=== PATIENT | female | born 1940 | race Caucasian/White ===

== ENCOUNTER 2017-03-23 12:41 | Inpatient (IN) | payer MEDICAID, MEDICARE ==
[~2017-03-23] VITALS: Ht 162.6 cm; Wt 71.7 kg
[~2017-03-23 12:41] MED LIST: ACID1TAB12 GT; ATEN25TA PO; CALC1TAB30 PO; CLOP75TA15 GT; CYAN10009 GT; DULO30CA51 PO; EXEN5PEN2 SQ; GABA-536 PO; GLIP5TAB13 PO; KETO15CR2 TP; LEVO50TA8 PO; LORA-676 GT; METO-295 PO; MULT1TAB11 PO; OXYC-128 GT; PANT40TA2 PO; POLY17PO4 PO; PRIM50TA GT; RANI150T12 PO; ROSU20TA PO; VANC125C2 PO
[2017-03-23] MEDS ORDERED: AMIO200T2 GT (14:28)
[2017-03-23] MEDS ORDERED: LEVO75TA7 GT (14:28)
[2017-03-23] MEDS ORDERED: INSU100V7 SQ (14:28)
[2017-03-23] MEDS ORDERED: humalog SQ (14:28)
[2017-03-23] MEDS ORDERED: GABA300S GT (14:28)
[2017-03-23] MEDS ORDERED: ZINC500P16 MC (14:28)
[2017-03-23] MEDS ORDERED: MESA10002 RC (14:28)
[2017-03-23] MEDS ORDERED: ASCO-375 GT (14:28)
[2017-03-23] MEDS ORDERED: METO25TA6 GT (14:28)
[2017-03-23] MEDS ORDERED: FAMO20TA8 GT (14:28)
[2017-03-23] MEDS ORDERED: LORA-258 GT (14:28)
[2017-03-23] MEDS ORDERED: BISA-79 RC (14:28)
[2017-03-23] MEDS ORDERED: [UNRECOGNIZED DRUG - CODE] PO (14:28)
[2017-03-23] MEDS ORDERED: ALBU2.5V38 NEB (14:28)
[2017-03-23 14:44] LABS: BASOPHILS # (AUTO) 0.1 K/uL (0.0-8.0); BASOPHILS % (AUTO) 0.5 % (0.0-2.0); EOSINOPHILS # (AUTO) 0.3 K/uL (0.0-0.7); EOSINOPHILS % (AUTO) 2.3 % (0.0-7.0); HEMATOCRIT 32.1 % (37-47); HEMOGLOBIN 10.2 G/DL (12.0-16.0); LYMPHOCYTES # (AUTO) 1.6 K/UL (0.8-4.8); LYMPHOCYTES % (AUTO) 13.5 % (20.5-51.5); MEAN CORPUSCULAR HEMOGLOBIN 27.5 UUG (27.0-31.0); MEAN CORPUSCULAR HGB CONC 32 g/dL (32.0-37.0); MEAN CORPUSCULAR VOLUME 86.8 FL (81.0-99.0); MONOCYTES # (AUTO) 0.9 K/UL (0.1-1.30); MONOCYTES % (AUTO) 7.6 % (0.0-11.0); NEUTROPHILS # (AUTO) 8.8 K/UL (1.8-8.9); NEUTROPHILS % (AUTO) 76.1 % (38.5-71.5); PLATELET COUNT (AUTO) 647 K/UL (150-450); WHITE BLOOD COUNT (AUTO) 11.7 K/UL (4.0-11.2)
[2017-03-23 14:53] LABS: ALANINE AMINOTRANSFERASE 18 U/L (14-59); ALKALINE PHOSPHATASE 78 U/L (50-136); ASPARTATE AMINOTRANSFERASE 7 U/L (15-37); BILIRUBIN,TOTAL 0.2 mg/dL (0.2-1.0); CARBON DIOXIDE 31 mmol/L (21-32); CHLORIDE 108 mmol/L (98-107); GLUCOSE 107 mg/dL (74-106); POTASSIUM 3.6 mmol/L (3.5-5.1); TOTAL PROTEIN, SERUM 7.6 g/dL (6.4-8.2); UREA NITROGEN, BLOOD 45 mg/dL (7-18)
--- NOTE | 2017-03-23 15:00 | NUR ---
Pt arrived with f/c to G-tube site, f/c removed by Dr. Swanson and replaced with 22F G-tube. Redness and drainage noted at site.
--- NOTE | 2017-03-23 15:15 | NUR ---
X-ray done post 15ml of Gastrografin given through G-tube as instructed by x-ray tech. G-tube flushed with 30ml H2O post x-ray.
[2017-03-23] MEDS ORDERED: DIATR MEGLU/DIATRIZOATE SODIUM 120 ML BOTTLE ONE (15:19)
[2017-03-23] MEDS ORDERED: DIATR MEGLU/DIATRIZOATE SODIUM 30 ML SOLUTION ONE (15:20)
--- NOTE | 2017-03-23 15:30 | NUR ---
Per Dr. Swanson pt to be admitted to m/s.
[2017-03-23 16:09] LABS: BAND % (MANUAL) 2 % (0-10); EOSINOPHILS % (MANUAL) 2 % (0-8); LYMPHOCYTES % (MANUAL) 15 % (20-40); MONOCYTES % (MANUAL) 6 % (2-10); MYELOCYTES % 1 % (0-0); NEUTROPHILS % (MANUAL) 74 % (42-75)
--- NOTE | 2017-03-23 17:00 | NUR ---
Pt resting in [facility] with NAD noted at this time, pend m/s bed assignment.
--- NOTE | 2017-03-23 20:58 | NUR ---
Pt. admitted to [facility], under care of Sol Guillaume Belongs List completed
[2017-03-23 21:00] VITALS: BP 150/79
--- NOTE | 2017-03-23 21:10 | NUR ---
RECEIVED PATIENT FROM ER VIA GURNEY. PT IS ADMITTED TO MED SURG UNDER THE CARE OF DR. STYLES. DX: FECAL IMPACTION. PT IS ALERT, RESPONSIVE. BELONGING LIST DONE, ADMISSION PROCESS AND CARE PLAN INITIATED. WILL CALL FOR MD'S ORDER. SAFETY MEASURES IN PLACE.
--- NOTE | 2017-03-23 21:30 | NUR ---
PT CAME IN WITH G TUBE, FONTAINE CATH AND WOUND VAC TUBING FROM THE COCCYX AREA TO THE RIGHT HIP. REMOVED OLD DRESSING FROM COCCYX AREA FOR ASSESSMENT. WILL ORDER WOUND CONSULT FOR EVAL.
[2017-03-23] MEDS ORDERED: IV NS 1000 ML 1,000 ML IV PRN (23:00)
--- NOTE | 2017-03-23 23:00 | NUR ---
SPOKED WITH DR. CARIAS. 'S ORDER RECEIVED, READ BACK DONE, AND CARRIED OUT. PER DR. CARIAS, MED RECONCILIATION WILL BE DONE IN THE MORNING.
[2017-03-23] MEDS ORDERED: IV D5/ 0.9% NACL 1,000 ML IV PRN (23:45)
[2017-03-24 05:49] VITALS: BP 152/81
[2017-03-24] MEDS ORDERED: DEXTROSE 50% 50 ML DISP.SYRIN IV SCH (06:00)
[2017-03-24] MEDS ORDERED: INSULIN REGULAR, HUMAN 300 UNIT/3 ML VIAL SQ SCH (06:00)
[2017-03-24] MEDS ORDERED: BLOOD SUGAR DIAGNOSTIC 1 EACH STRIP VI SCH (06:00)
--- NOTE | 2017-03-24 06:00 | NUR ---
PT SLEPT INTERMITTENTLY, IN NO ACUTE DISTRESS. ACCUCHECKS ORDERED. PT KEPT NPO. G TUBE INTACT, FLUSHED PER PROTOCOL, DRESSING CHANGED. ORAL CARE PROVIDED, SUCTIONED NEEDED. REPOSITIONED FOR COMFORT. APPLIED MEPELIX ON COCCYX AREA. PATIENT KEPT CLEAN DRY. SAFETY MEASURES IN PLACE. WILL CONTINUE TO MONITOR.
[2017-03-24 07:04] LABS: BASOPHILS % (AUTO) 0.1 % (0.0-2.0); EOSINOPHILS # (AUTO) 0.2 K/uL (0.0-0.7); EOSINOPHILS % (AUTO) 2.6 % (0.0-7.0); HEMATOCRIT 34.2 % (37-47); HEMOGLOBIN 10.6 G/DL (12.0-16.0); LYMPHOCYTES # (AUTO) 1.5 K/UL (0.8-4.8); LYMPHOCYTES % (AUTO) 17.4 % (20.5-51.5); MEAN CORPUSCULAR HEMOGLOBIN 27.2 UUG (27.0-31.0); MEAN CORPUSCULAR HGB CONC 31 g/dL (32.0-37.0); MEAN CORPUSCULAR VOLUME 87.4 FL (81.0-99.0); MONOCYTES # (AUTO) 0.7 K/UL (0.1-1.30); MONOCYTES % (AUTO) 8.3 % (0.0-11.0); NEUTROPHILS % (AUTO) 71.6 % (38.5-71.5); RED BLOOD CELL COUNT(AUTO) 3.92 MIL/UL (4.2-5.4)
[2017-03-24 07:05] LABS: WHITE BLOOD COUNT (AUTO) 8.4 K/UL (4.0-11.2)
[2017-03-24 07:12] LABS: ALANINE AMINOTRANSFERASE 14 U/L (14-59); ALKALINE PHOSPHATASE 73 U/L (50-136); ASPARTATE AMINOTRANSFERASE 10 U/L (15-37); BILIRUBIN,TOTAL 0.3 mg/dL (0.2-1.0); CARBON DIOXIDE 29 mmol/L (21-32); CHLORIDE 109 mmol/L (98-107); CREATININE 1.1 mg/dL (0.6-1.3); GLUCOSE 206 mg/dL (74-106); PHOSPHOROUS 3.4 mg/dL (2.5-4.9); POTASSIUM 3.4 mmol/L (3.5-5.1); TOTAL PROTEIN, SERUM 7.6 g/dL (6.4-8.2); UREA NITROGEN, BLOOD 38 mg/dL (7-18)
--- NOTE | 2017-03-24 08:00 | NUR ---
RECEIVED BED SIDE REPORT, PATIENT NOTED SITTING UP IN BED, NO COMPLAINTS OF PAIN AT THIS TIME, NO SIGNS OF DISTRESS
[2017-03-24] MEDS: ACETAMINOPHEN 650 MG/20.3 ML LIQUID UDC GT PRN (08:39)
[2017-03-24] MEDS: DEXTROSE 50% 50 ML DISP.SYRIN IV PRN (08:44)
[2017-03-24] MEDS: ONDANSETRON 4 MG/2 ML VIAL IV PRN (08:47)
[2017-03-24] MEDS: Z GUARD REMEDY PASTE 57 GM TUBE TOP SCH ×2 (09:04→23:08)
--- NOTE | 2017-03-24 11:00 | NUR ---
WOUND CARE CONSULT DONE AT THIS TIME, PICTURE OF WOUND ON ANKLE DOCUMENTED AND PICTURES TAKEN AND PLACED IN CHART, NPO STATUS MAINTAINED, NO BM NOTED (NEW ORDERS FROM COLLECTION: WILL COLLECT STOOL WHEN PRESENT), WOUND CARE NURSE REQUESTED A SURGICAL CONSULT FOR SACRUM ULCER, DOCTOR JENSEN PAGED AT WITHOUT RETURNED CALL
[2017-03-24 11:01] VITALS: BP 177/91
--- NOTE | 2017-03-24 11:13 | NUR ---
WOUND CARE CONSULT: PT PRESENTS WITH SACRAL ULCER, STAGE 4, LEFT HEEL OPEN BLISTER AND ESCHAR TO LEFT SIDE OF HEAD, ALL PRESENT ON ADMISSION. RECOMMENDATIONS MADE FOR WOUND CARE AND SKIN PROTECTION. DISCUSSED WITH NURSING STAFF. RECOMMEND SURGICAL CONSULT. PT ON FIRST STEP MATTRESS. WILL SEE PRN. SANCHEZ IN AGREEMENT WITH PLAN OF CARE. Addendum: 03/24/17 at 1114 by DANIEL PIERSON RN Amended: Links added. Addendum: 03/24/17 at 1116 by DANIEL PIERSON RN SACRAL WOUND HAS UNDERMINING OF 3CM AT 12:00 POSITION. DISCUSSED WITH NURSING STAFF.
[2017-03-24] MEDS: CLOTRIMAZOLE 1% CREAM 30 GM TUBE TOP SCH ×2 (11:15→17:00)
[2017-03-24] MEDS: SODIUM HYPOCHLORITE 0.125% 473 ML BOTTLE TP SCH (11:15)
[2017-03-24] MEDS ORDERED: CLINDAMYCIN PHOSPHATE IV 600 MG in IV DEXTROSE 5% 100 ML IV SCH (14:00)
[2017-03-24 14:40] LABS: PLATELET COUNT (AUTO) 636 K/UL (150-450)
[2017-03-24] MEDS: BLOOD SUGAR DIAGNOSTIC 1 EACH STRIP VI SCH ×2 (14:46→23:10)
[2017-03-24 15:01] VITALS: BP 168/70
[2017-03-24] MEDS: INSULIN REGULAR, HUMAN 300 UNIT/3 ML VIAL SQ PRN ×2 (15:13→23:12)
--- NOTE | 2017-03-24 15:30 | NUR ---
PATIENT HAS A BLOOD PRESSURE OF 168/77, DOCTOR JENSEN PAGED, AWAITING RESPONDING CALL AT THIS TIME
--- NOTE | 2017-03-24 17:20 | NUR ---
STOOL COLLECTED AND SENT TO LAB AT THIS TIME
--- NOTE | 2017-03-24 19:35 | NUR ---
PT RECEIVED IN BED, AWAKE. A/OX2. ABLE TO MAKE TO NEEDS KNOWN. V/S STABLE. IN NO ACUTE DISTRESS. NO C/O PAIN AT THIS TIME. PT IVF INFUSING. IV INTACT AND PATENT. ON FIRST STEP MATTRESS. SACRAL REGION C/D/I. FONTAINE INTACT/PATENT. SAFETY MEASURES IMPLEMENTED. BED ALARM SET. CALL LIGHT WITHIN REACH.
[2017-03-24 20:00] VITALS: BP 162/69
--- NOTE | 2017-03-24 20:15 | NUR ---
CLINICAL PHARMACY NOTE:VANCOMYCIN DOSING Request for vancomycin dosing on 76 y/o female 5'4" 153lbs for cellulitis temp 99f BUN 38 Scr 1.1 WBC 8.4 start vancomycin 1000mg ivpb q24h hours estimated trough 15. will order trough prior to 4 th dose. Will continue to monitor
--- NOTE | 2017-03-24 22:45 | NUR ---
DR. RUIZ IN WITH PT. ASSESSING G-TUBE. REQUEST CHANGE OF G-TUBE DRESSING AND PLACEMENT OF STOMA ADHESIVE.
[2017-03-24] MEDS ORDERED: FLEET ENEMA 133 ML BOTTLE RC ONE ×2 (23:00→23:49)
[2017-03-24] MEDS: POTASSIUM CHLORIDE 50 ML IV SCH (23:04)
--- NOTE | 2017-03-24 23:40 | NUR ---
FLEET ENEMA ADMINISTERED. PT TOLERATED WELL. PT HAS SOFT BROWN STOOL. WILL CONT TO MONITOR.
--- NOTE | 2017-03-24 23:45 | NUR ---
PT G-TUBE DRESSING CHANGED AND SECURED. NO RESIDUAL AT THIS TIME. ALSO, PT HAD BM THAT WAS SOFT TO WATERY IN CONSISTENCY. PT PLACED ON PRECAUTIONARY ISOLATION AT THIS TIME. PT SACRAL ULCER CLEANED WITH SALINE. MEPELEX CHANGED. PT CLEAN AND DRY. PT TURNED FOR SACRAL OFFLOADING.
[2017-03-25] MEDS: VANCOMYCIN IV 1 G in PREMIXED 0 EACH IV SCH ×2 (00:53→21:23)
[2017-03-25] MEDS: ACETAMINOPHEN 650 MG/20.3 ML LIQUID UDC GT PRN (01:23)
--- NOTE | 2017-03-25 01:35 | NUR ---
PT SHOWS SYMPTOMS OF PAIN. SEEN FACIAL GRIMACING WITH NURSING CARE AND G-TUBE CARE. ADMINISTERED TYLENOL ORDERED. WILL CONT TO MONITOR.
--- NOTE | 2017-03-25 02:30 | NUR ---
INFORMED BY CHARGE NURSE HURD THAT VANCO ORAL SUSPENSION UNAVAILABLE AT THIS TIME. WILL ENDORSE TO TERRENCE NURSE. Addendum: 03/25/17 at 0458 by FATUMA HESS RN PT VANCO TOM LATE. VANCO ORAL SUSPENSION FOR PT WAS IN FRIDGE.
[2017-03-25] MEDS: POTASSIUM CHLORIDE 50 ML IV SCH (03:15)
[2017-03-25] MEDS ORDERED: POTASSIUM CHLORIDE 50 ML ONE (03:19)
[2017-03-25 04:00] VITALS: BP 129/77
[2017-03-25] MEDS: VANCOMYCIN FOR PO/GT/NG USE GT SCH ×5 (04:56→23:32)
[2017-03-25] MEDS: BLOOD SUGAR DIAGNOSTIC 1 EACH STRIP VI SCH ×3 (05:14→21:30)
[2017-03-25] MEDS: INSULIN REGULAR, HUMAN 300 UNIT/3 ML VIAL SQ PRN ×4 (05:16→21:33)
--- NOTE | 2017-03-25 06:20 | NUR ---
END OF SHIFT NOTES. PT SLEPT WELL THROUGHOUT SHIFT. IN STABLE CONDITION. IVF INFUSING. FONTAINE DRAINING PROPERLY. PAIN MANAGED. PT KEPT CLEAN AND DRY. G-TUBE PATENT, NO RESIDUAL AT THIS TIME. G-TUBE DRESSING CHANGED, C/D/I. HOB ELEVATED. PT ON FIRST STEP MATTRESS. SACRAL AREA OFFLOADING AND BILATERAL LOWER EXTREMITIES. ALL NEEDS ATTENDED. SAFETY MAINTAINED. CALL LIGHT WITHIN REACH.
[2017-03-25 07:40] LABS: HEMATOCRIT 32.7 % (37-47); HEMOGLOBIN 10.2 G/DL (12.0-16.0); MEAN CORPUSCULAR HEMOGLOBIN 27.4 UUG (27.0-31.0); MEAN CORPUSCULAR HGB CONC 31 g/dL (32.0-37.0); MEAN CORPUSCULAR VOLUME 87.7 FL (81.0-99.0); PLATELET COUNT (AUTO) 683 K/UL (150-450); RED BLOOD CELL COUNT(AUTO) 3.73 MIL/UL (4.2-5.4)
--- NOTE | 2017-03-25 08:00 | NUR ---
RECEIVED REPORT FROM TELEVISION NEWS REPORTER NURSE. PATIENT IN BED AWAKE, NO EVIDENCE OF DISTRESS NOTED. BED IN LOW POSITION, SIDE RAILS UP X2.
[2017-03-25 08:13] LABS: ALANINE AMINOTRANSFERASE 14 U/L (14-59); ALKALINE PHOSPHATASE 71 U/L (50-136); ASPARTATE AMINOTRANSFERASE 13 U/L (15-37); BILIRUBIN,TOTAL 0.2 mg/dL (0.2-1.0); CARBON DIOXIDE 24 mmol/L (21-32); CHLORIDE 113 mmol/L (98-107); CREATININE 1.1 mg/dL (0.6-1.3); GLUCOSE 236 mg/dL (74-106); MAGNESIUM 2.8 mg/dL (1.8-2.4); POTASSIUM 3.8 mmol/L (3.5-5.1); TOTAL PROTEIN, SERUM 7.5 g/dL (6.4-8.2); UREA NITROGEN, BLOOD 25 mg/dL (7-18)
[2017-03-25] MEDS ORDERED: ALBUTEROL SULFATE 2.5 MG/3 ML NEBU NEB PRN (08:45)
[2017-03-25] MEDS ORDERED: HOME MED MISCELLANEOUS XX SCH (08:45)
[2017-03-25] MEDS ORDERED: MIRALAX 17 GM POWD.PACK PO PRN (08:45)
[2017-03-25] MEDS ORDERED: LORAZEPAM 0.5 MG TABLET GT PRN (08:45)
[2017-03-25 09:00] LABS: IRON, SERUM 22 ug/dL (50-175)
[2017-03-25] MEDS ORDERED: AMIODARONE HCL 200 MG TABLET GT SCH (09:00)
[2017-03-25] MEDS ORDERED: CYANOCOBALAMIN 1,000 MCG TABLET GT SCH (09:00)
[2017-03-25] MEDS ORDERED: HOME MED MISCELLANEOUS GT SCH (09:00)
[2017-03-25] MEDS ORDERED: DULOXETINE 30 MG CAPSULE.DR PO SCH (09:00)
--- NOTE | 2017-03-25 09:15 | NUR ---
Gave report to arriving Registry nurse. Patient is stable, no evidence of distress noted.
[2017-03-25 09:18] LABS: FERRITIN 45 ng/mL (8-252)
[2017-03-25] MEDS ORDERED: DUL RC ×2 (09:45→09:57)
[2017-03-25] MEDS ORDERED: GABA-534 GT (09:46)
[2017-03-25] MEDS ORDERED: POLY17PO3 PO (09:57)
[2017-03-25 10:19] LABS: BAND % (MANUAL) 1 % (0-10); EOSINOPHILS % (MANUAL) 1 % (0-8); LYMPHOCYTES % (MANUAL) 11 % (20-40); MONOCYTES % (MANUAL) 10 % (2-10); NEUTROPHILS % (MANUAL) 77 % (42-75)
[2017-03-25] MEDS ORDERED: OXYC-128 PO (10:25)
[2017-03-25] MEDS ORDERED: AMIN30LI2 PO (10:27)
[2017-03-25] MEDS ORDERED: BISACODYL 10 MG SUPP.RECT RC PRN (10:30)
[2017-03-25] MEDS ORDERED: OXYCODONE/APAP 5-325 MG TABLET PO PRN (10:30)
[2017-03-25] MEDS: CLOPIDOGREL 75 MG TABLET GT SCH (10:58)
[2017-03-25] MEDS: FAMOTIDINE 20 MG TABLET GT SCH ×2 (10:59→17:30)
[2017-03-25] MEDS: LORATADINE 10 MG TABLET PO SCH (10:59)
[2017-03-25] MEDS: ZINC SULFATE 220 MG CAPSULE GT SCH (10:59)
[2017-03-25] MEDS: ASCORBIC ACID 500 MG TABLET GT SCH ×2 (11:00→17:31)
[2017-03-25] MEDS: CYANOCOBALAMIN 1000 MCG/ML VIAL IM SCH (11:00)
[2017-03-25] MEDS: LEVOTHYROXINE SODIUM 75 MCG TABLET GT SCH (11:09)
[2017-03-25] MEDS: OXYCODONE/APAP 5-325 MG TABLET GT SCH ×2 (11:10→17:31)
[2017-03-25] MEDS: SODIUM HYPOCHLORITE 0.125% 473 ML BOTTLE TP SCH (11:26)
[2017-03-25] MEDS: Z GUARD REMEDY PASTE 57 GM TUBE TOP SCH ×2 (11:26→21:34)
[2017-03-25 11:27] VITALS: BP 169/80
[2017-03-25] MEDS: CLOTRIMAZOLE 1% CREAM 30 GM TUBE TOP SCH ×2 (11:28→17:39)
[2017-03-25] MEDS: METOPROLOL TARTRATE 25 MG TABLET GT SCH ×3 (12:12→23:32)
[2017-03-25] MEDS: MULTIVITS W-FE,OTHER MIN 15 ML UDC GT SCH (12:18)
--- NOTE | 2017-03-25 14:37 | NUR ---
PHARMACY NOTES (VANCOMYCIN DOSING) S: 76 YO FEMALE ON VANCOMYCIN FOR TREATMENT OF G-TUBE SITE CELLULITIS O: BUN/SCR 25/1.1; WBC 9.0, TEMP 98.4, WOUND CX AND GRAM STAIN PENDING A/P: RENAL FXN STABLE WILL CONTINUE WITH VANCOMYCIN 1 GM Q24H (TODAY: DOSE #2), WILL CK VANCO LEVEL PRIOR TO 4TH DOSE( NOT IN THE COMPUTER YET) WILL CONTINUE MONITORING AND ADJUST DOSE NECESSARY.
[2017-03-25] MEDS: GABAPENTIN 300 MG CAPSULE GT SCH ×2 (15:21→17:30)
[2017-03-25] MEDS: ACIDOPHILUS/BULGARICUS CHEW TAB GT SCH ×2 (15:21→21:22)
[2017-03-25 15:31] VITALS: BP 141/70
[2017-03-25] MEDS: MIRALAX 17 GM POWD.PACK PO SCH (17:00)
[2017-03-25] MEDS: PROTEIN SUPPLEMENT (PROSTAT) 30 ML LIQUID PO SCH (17:00)
[2017-03-25] MEDS: ONDANSETRON 4 MG/2 ML VIAL IV PRN (17:36)
[2017-03-25] MEDS ORDERED: HOME MED MISCELLANEOUS RC SCH (18:00)
[2017-03-25] MEDS ORDERED: DIABETICSOURCE AC 1000ML LIQUID GT PRN (19:00)
--- NOTE | 2017-03-25 19:35 | NUR ---
PT RECEIVED IN BED, AWAKE. A/OX2. ABLE TO MAKE NEEDS KNOWN. V/S STABLE. IN NO ACUTE DISTRESS. NO C/O PAIN AT THIS TIME. IV HEP LOCKED, INTACT AND PATENT. GTUBE FEEDING RUNNING AT 50 CC/HR. PT TOLERATING WELL. G-TUBE SITE C/D/I. FONTAINE DRAINING PROPERLY. CONT TO BE ON FIRST STEP MATTRESS, OFFLOADING COCCYX AND BILATERAL LOWER EXTREMITY. ISOLATION IN PLACE FOR PRECAUTIONARY MEASURES. SAFETY MEASURES IMPLEMENTED. BED ALARM SET. CALL LIGHT WITHIN REACH.
[2017-03-25 20:09] VITALS: BP 127/64
--- NOTE | 2017-03-25 20:45 | NUR ---
SPOKE TO DPEDNA ORTEGA, STATES SHE WAS NOT NOTIFIED OF PT'S ADMISSION AND STATUS. GAVE DPOA UPDATE.
[2017-03-25] MEDS: MESALAMINE 500 MG CAPSULE.SA PO SCH (21:22)
[2017-03-25] MEDS: PRIMIDONE 50 MG TABLET GT SCH (21:23)
[2017-03-25] MEDS: INSULIN DETEMIR 300 UNIT/3 ML CARTRIDGE SQ SCH (21:33)
--- NOTE | 2017-03-25 21:40 | NUR ---
PT FEEDING HELD. 10CC RESIDUAL NOTED. FLUSHED GTUBE WITH 30CC OF WATER. ADMINISTERED NIGHT MEDS. FLUSHED WITH ADDITIONAL 60CC OF WATER, PT HOB ELEVATED. TOLERATED WELL. FEEDING RESTARTED. WILL CONT TO MONITOR.
[2017-03-25 23:30] VITALS: BP 142/67
[2017-03-26] VITALS (24 sets, daily range): BP systolic 71–175; BP diastolic 38–100
[2017-03-26] MEDS: ACIDOPHILUS/BULGARICUS CHEW TAB GT SCH ×3 (06:02→22:53)
[2017-03-26] MEDS: LEVOTHYROXINE SODIUM 75 MCG TABLET GT SCH (06:03)
[2017-03-26] MEDS: VANCOMYCIN FOR PO/GT/NG USE GT SCH ×3 (06:03→18:23)
[2017-03-26] MEDS: METOPROLOL TARTRATE 25 MG TABLET GT SCH ×3 (06:04→17:22)
[2017-03-26] MEDS: BLOOD SUGAR DIAGNOSTIC 1 EACH STRIP VI SCH ×3 (06:55→22:51)
--- NOTE | 2017-03-26 06:58 | NUR ---
END OF SHIFT NOTES. PT SLEPT WELL THROUGHOUT SHIFT. IN STABLE CONDITION. TURNED Q2. G-TUBE FEEDING RUNNING AT 50CC/HR. TOLERATING WELL. GTUBE DRESSING C/D/I. FONTAINE RUNNING PROPERLY. MEPELEX PLACED IN COCCYX REGION. C/D/I. IV INTACT PATENT. SAFETY MEASURES IMPLEMENTED. CALL LIGHT WITHIN REACH.
--- NOTE | 2017-03-26 06:58 | NUR ---
PT BS 66. ADMIN OJ THRU G TUBE. WILL CON TO MONITOR.
--- NOTE | 2017-03-26 07:40 | NUR ---
RECEIVED REPORT FROM HAY FARMER NURSE. PATIENT IN BED AWAKE, NO EVIDENCE OF DISTRESS NOTED. BED IN LOW POSITION, SIDE RAILS UP X2.
[2017-03-26 07:53] LABS: HEMATOCRIT 32.6 % (37-47); HEMOGLOBIN 10.3 G/DL (12.0-16.0); MEAN CORPUSCULAR HEMOGLOBIN 27.7 UUG (27.0-31.0); MEAN CORPUSCULAR HGB CONC 32 g/dL (32.0-37.0); MEAN CORPUSCULAR VOLUME 87.4 FL (81.0-99.0); PLATELET COUNT (AUTO) 715 K/UL (150-450); RED BLOOD CELL COUNT(AUTO) 3.73 MIL/UL (4.2-5.4); WHITE BLOOD COUNT (AUTO) 11.8 K/UL (4.0-11.2)
[2017-03-26] MEDS: AMIODARONE HCL 200 MG TABLET GT SCH (08:07)
[2017-03-26] MEDS: ZINC SULFATE 220 MG CAPSULE GT SCH (08:07)
[2017-03-26] MEDS: CLOPIDOGREL 75 MG TABLET GT SCH (08:07)
[2017-03-26] MEDS: GABAPENTIN 300 MG CAPSULE GT SCH ×3 (08:07→17:21)
[2017-03-26] MEDS: OXYCODONE/APAP 5-325 MG TABLET GT SCH ×2 (08:07→17:00)
[2017-03-26] MEDS: FAMOTIDINE 20 MG TABLET GT SCH ×2 (08:07→16:24)
[2017-03-26] MEDS: ASCORBIC ACID 500 MG TABLET GT SCH ×2 (08:07→17:21)
[2017-03-26] MEDS: LORATADINE 10 MG TABLET PO SCH (08:08)
[2017-03-26] MEDS: CYANOCOBALAMIN 1000 MCG/ML VIAL IM SCH (08:08)
[2017-03-26] MEDS: MULTIVITS W-FE,OTHER MIN 15 ML UDC GT SCH (08:09)
[2017-03-26] MEDS: SODIUM HYPOCHLORITE 0.125% 473 ML BOTTLE TP SCH (08:09)
[2017-03-26] MEDS: CLOTRIMAZOLE 1% CREAM 30 GM TUBE TOP SCH ×2 (08:09→17:23)
[2017-03-26] MEDS: Z GUARD REMEDY PASTE 57 GM TUBE TOP SCH ×2 (08:09→22:26)
[2017-03-26] MEDS: PROTEIN SUPPLEMENT (PROSTAT) 30 ML LIQUID PO SCH ×2 (08:10→17:23)
[2017-03-26] MEDS: MIRALAX 17 GM POWD.PACK PO SCH ×2 (08:10→16:58)
[2017-03-26 09:22] LABS: ALANINE AMINOTRANSFERASE 14 U/L (14-59); ALKALINE PHOSPHATASE 73 U/L (50-136); ASPARTATE AMINOTRANSFERASE 11 U/L (15-37); BILIRUBIN,TOTAL 0.2 mg/dL (0.2-1.0); CARBON DIOXIDE 27 mmol/L (21-32); CHLORIDE 115 mmol/L (98-107); CREATININE 1.1 mg/dL (0.6-1.3); GLUCOSE 58 mg/dL (74-106); MAGNESIUM 2.7 mg/dL (1.8-2.4); PHOSPHOROUS 2.6 mg/dL (2.5-4.9); TOTAL PROTEIN, SERUM 7.1 g/dL (6.4-8.2); UREA NITROGEN, BLOOD 33 mg/dL (7-18)
[2017-03-26] MEDS: POTASSIUM CHLORIDE 20 MEQ POWDER PACKET GT SCH ×3 (11:27→17:22)
--- NOTE | 2017-03-26 12:29 | NUR ---
Clinical pharmacy note: Vancomycin pharmacy to dose Subjective: To continue vancomycin in this 76 yo female for GT site cellulitis Objective: height 64'' weight 153 lb BUN 33 Scr 1.1 Wbc 11.8 temp 98.2 Assessment/Plan Will continue same dose of vancomycin 1000mg IVPB q24hr for today. Second dose is due today at 2200. Plan to draw vanco trough level before 4th banuelos (level not yet ordered). Will monitor renal function & adjust the dose if needed. Will continue to monitor.
[2017-03-26 13:55] LABS: BAND % (MANUAL) 5 % (0-10); EOSINOPHILS % (MANUAL) 4 % (0-8); LYMPHOCYTES % (MANUAL) 22 % (20-40); MONOCYTES % (MANUAL) 5 % (2-10); NEUTROPHILS % (MANUAL) 64 % (42-75)
--- NOTE | 2017-03-26 16:30 | NUR ---
PT BLOOD PRESSURE DROP T0 81/45 HR IS 120 ,BLOOD SUGAR IS 72 RAPID RESPONSE ACTIVATED.
--- NOTE | 2017-03-26 16:50 | NUR ---
DR LAIRD CALLED REGARDING THE PT CONDITIONS AND RAPID RESPONSE CALLED.
--- NOTE | 2017-03-26 17:10 | NUR ---
SPOKE WITH DR LAIRD NEW ORDERS RECEIVED NOTED AND CARRIED OUT.
[2017-03-26] MEDS ORDERED: IV NORMAL SALINE 1000 ML BAG IV ONE (17:15)
[2017-03-26] MEDS ORDERED: IV NS 1000 ML 1,000 ML IV ONE ×3 (17:15→21:30)
--- NOTE | 2017-03-26 17:30 | NUR ---
RAPID RESPONSE CANCELED
[2017-03-26] MEDS: ACETAMINOPHEN 650 MG/20.3 ML LIQUID UDC GT PRN (17:33)
[2017-03-26 17:36] LABS: *BILIRUBIN,URIN NEGATIVE (NEGATIVE); *BLOOD, URINE 2+ (NEGATIVE); *CLARITY,URINE CLOUDY (CLEAR); *COLOR,URINE CLOUDY (YELLOW); *KETONES,URINE NEGATIVE (NEGATIVE); *PROTEIN,URINE 2+ (NEGATIVE); *UROBILINOGEN,URINE 0.2 E.U./dl (NORMAL); LEUKOCYTE ESTERASE ,URINE 1+ (NEGATIVE); NITRITE, URINE NEGATIVE (NEGATIVE); PH,URINE 8.5 (5.0-8.0)
[2017-03-26 17:40] LABS: UGLUCOSE 1+ (NEGATIVE)
[2017-03-26 17:44] LABS: BACTERIA,URINE MANY /HPF (NONE SEEN); SQUAMOUS EPITHELIAL CELL,UR FEW /HPF (NONE SEEN); TRIPLE PHOSPHATE CRYSTAL,UR PRESENT /HPF (NONE SEEN)
--- NOTE | 2017-03-26 17:47 | NUR ---
PER LAB URINE RESULT GLUCOSE 1+ NOTIFIED
[2017-03-26 17:49] LABS: ALANINE AMINOTRANSFERASE 16 U/L (14-59); ALKALINE PHOSPHATASE 97 U/L (50-136); ASPARTATE AMINOTRANSFERASE 12 U/L (15-37); BILIRUBIN,TOTAL 0.3 mg/dL (0.2-1.0); CARBON DIOXIDE 26 mmol/L (21-32); CHLORIDE 114 mmol/L (98-107); CREATININE 1.3 mg/dL (0.6-1.3); GLUCOSE 105 mg/dL (74-106); POTASSIUM 3.5 mmol/L (3.5-5.1); TOTAL PROTEIN, SERUM 7.2 g/dL (6.4-8.2); UREA NITROGEN, BLOOD 34 mg/dL (7-18)
[2017-03-26 18:03] LABS: BASOPHILS % (AUTO) 0.2 % (0.0-2.0); MONOCYTES % (AUTO) 0.5 % (0.0-11.0)
[2017-03-26 18:08] LABS: EOSINOPHILS % (AUTO) 0.5 % (0.0-7.0); HEMATOCRIT 34.7 % (37-47); HEMOGLOBIN 10.6 G/DL (12.0-16.0); LYMPHOCYTES # (AUTO) 0.4 K/UL (0.8-4.8); LYMPHOCYTES % (AUTO) 6.7 % (20.5-51.5); MEAN CORPUSCULAR HEMOGLOBIN 26.9 UUG (27.0-31.0); MEAN CORPUSCULAR HGB CONC 31 g/dL (32.0-37.0); MEAN CORPUSCULAR VOLUME 88.2 FL (81.0-99.0); NEUTROPHILS % (AUTO) 92.1 % (38.5-71.5); PLATELET COUNT (AUTO) 662 K/UL (150-450); RED BLOOD CELL COUNT(AUTO) 3.93 MIL/UL (4.2-5.4); WHITE BLOOD COUNT (AUTO) 6.4 K/UL (4.0-11.2)
[2017-03-26 18:19] LABS: BAND % (MANUAL) 2 % (0-10); EOSINOPHILS % (MANUAL) 1 % (0-8); LYMPHOCYTES % (MANUAL) 7 % (20-40); MONOCYTES % (MANUAL) 2 % (2-10); NEUTROPHILS % (MANUAL) 88 % (42-75)
--- NOTE | 2017-03-26 18:39 | NUR ---
SPEAK WITH DR LAIRD NEW ORDERS RECEIVED NOTED AND CARRIED OUT.AND INFECTION CNTROL NOTIFIED
[2017-03-26] MEDS ORDERED: IV NORMAL SALINE 500 ML IV ONE (18:45)
--- NOTE | 2017-03-26 19:30 | NUR ---
PT RECEIVED IN BED, AWAKE. A/OX1. BP SLIGHTLY DECREASED AT 94/46 WITH HR OF 92 SINUS RHYTHM ON THE TELE MONITOR. IV BOLUS INFUSING. PT RUNNING LOW GRADE FEVER 99.8 AT THIS TIME. PT FONTAINE PATENT. CONT ON FIRST STEP MATTRESS, OFFLOADING COCCYX AND BILATERAL LOWER EXTREMITIES. TUBE FEEDING HELD TO TO IV FLUID BOLUS. PRECAUTIONARY ISOLATION IN PLACE. SAFETY MEASURES IMPLEMENTED. CALL LIGHT WITHIN REACH.
--- NOTE | 2017-03-26 20:00 | NUR ---
MD LAIRD NOTIFIED OF CRITICAL LAB, LACTIC ACID OF 4.8. REQUEST FOR IV MAINTAINENCE OF NS 1000ML AT 1OOML/HR AFTER IV BOLUS COMPLETED.
--- NOTE | 2017-03-26 21:00 | NUR ---
NOTIFIED MD LAIRD OF DROPPING BP AT 83/48 AFTER IV BOLUS. ORDER TO TRANSFER TO ICU. REPORT GIVEN TO ICU NURSE
--- NOTE | 2017-03-26 21:15 | NUR ---
PT TRANSFERRED TO ICU. PT IN STABLE CONDITION.
--- NOTE | 2017-03-26 21:20 | NUR ---
Received patient from 2nd floor to CCU 3 per bed accompanied by RNs and RTs. Reason for transfer: hypotension. Patient attached to bedside monitor: SR in the 90's. O2 at 2 L NC sat above 95%. No SOB noted. Opens eyes and grimaces to pain but no appropriate verbal responses. Abdomen large but soft with bowel sounds. Assessment completed.
--- NOTE | 2017-03-26 21:45 | NUR ---
Attempted to insert another IV; current IV access to LFA leaking. Attempts unsuccessful.
--- NOTE | 2017-03-26 22:00 | NUR ---
Spoke to Dr. Vasquez; updated of patient's condition. Orders received.
[2017-03-26] MEDS ORDERED: NOREPINEPHRINE BITARTRATE 8 MG in IV DEXTROSE 5% 500 ML IV PRN (22:15)
--- NOTE | 2017-03-26 22:15 | NUR ---
Phone consent for PICC line obtained from Maura Storey patient's DPOA. Also updated of patient's condition and reason for transfer. Webmethods Consultant notified of PICC line order.
[2017-03-26] MEDS: INSULIN DETEMIR 300 UNIT/3 ML CARTRIDGE SQ SCH (22:24)
--- NOTE | 2017-03-26 22:24 | NUR ---
Levemir dose not given; patient's accucheck=79, patient's GT feedings is on hold for now because of hypotension.
[2017-03-26] MEDS: AZTREONAM 1 G in IV NORMAL SALINE 50 ML IV SCH (22:28)
[2017-03-26] MEDS ORDERED: IV NS 1000 ML 1,000 ML IV PRN (22:30)
[2017-03-26] MEDS: MESALAMINE 500 MG CAPSULE.SA PO SCH (22:53)
--- NOTE | 2017-03-26 23:00 | NUR ---
Continue to hold feedings due to patient's hypotension. HOB down. Meds given to patent GT but leaking of feeding like materials noted around site.
--- NOTE | 2017-03-26 23:30 | NUR ---
As per electrician substation supervisor Cristina PICC line RN won't be available till the am. IV inserted to RFA with angio cath#20. LFA IV dc'd.
[2017-03-26] MEDS: PRIMIDONE 50 MG TABLET GT SCH (23:45)
[2017-03-26] MEDS ORDERED: PRIMIDONE 50 MG TABLET ONE (23:47)
[2017-03-26] MEDS: VANCOMYCIN IV 1 G in PREMIXED 0 EACH IV SCH (23:48)
--- NOTE | 2017-03-26 23:59 | NUR ---
Levophed drip started for BP support. BPs monitored closely. No neuro changes.
[2017-03-27] VITALS (55 sets, daily range): BP systolic 79–143; BP diastolic 32–81
[2017-03-27] MEDS: VANCOMYCIN FOR PO/GT/NG USE GT SCH ×5 (00:02→23:34)
[2017-03-27] MEDS ORDERED: NOREPINEPHRINE BITARTRATE 4 MG/4 ML VIAL IV ONE (00:07)
--- NOTE | 2017-03-27 02:15 | NUR ---
Maura patient's DPOA called; updated of condition.
[2017-03-27 05:11] LABS: BASOPHILS # (AUTO) 0.1 K/uL (0.0-8.0); BASOPHILS % (AUTO) 0.2 % (0.0-2.0); EOSINOPHILS % (AUTO) 0.1 % (0.0-7.0); HEMATOCRIT 30.7 % (37-47); HEMOGLOBIN 9.6 G/DL (12.0-16.0); LYMPHOCYTES # (AUTO) 0.8 K/UL (0.8-4.8); LYMPHOCYTES % (AUTO) 2.3 % (20.5-51.5); MEAN CORPUSCULAR HEMOGLOBIN 27.5 UUG (27.0-31.0); MEAN CORPUSCULAR HGB CONC 31 g/dL (32.0-37.0); MEAN CORPUSCULAR VOLUME 88.5 FL (81.0-99.0); MONOCYTES # (AUTO) 1.4 K/UL (0.1-1.30); MONOCYTES % (AUTO) 4.2 % (0.0-11.0); NEUTROPHILS # (AUTO) 31.3 K/UL (1.8-8.9); NEUTROPHILS % (AUTO) 93.2 % (38.5-71.5); PLATELET COUNT (AUTO) 573 K/UL (150-450); RED BLOOD CELL COUNT(AUTO) 3.47 MIL/UL (4.2-5.4)
[2017-03-27 05:28] LABS: WHITE BLOOD COUNT (AUTO) 33.6 K/UL (4.0-11.2)
[2017-03-27 05:30] LABS: ALANINE AMINOTRANSFERASE 16 U/L (14-59); ALKALINE PHOSPHATASE 66 U/L (50-136); ASPARTATE AMINOTRANSFERASE 14 U/L (15-37); BILIRUBIN,TOTAL 0.3 mg/dL (0.2-1.0); CARBON DIOXIDE 21 mmol/L (21-32); CHLORIDE 119 mmol/L (98-107); CREATININE 1.4 mg/dL (0.6-1.3); GLUCOSE 112 mg/dL (74-106); MAGNESIUM 2.2 mg/dL (1.8-2.4); PHOSPHOROUS 2.4 mg/dL (2.5-4.9); POTASSIUM 4.1 mmol/L (3.5-5.1); TOTAL PROTEIN, SERUM 6.3 g/dL (6.4-8.2); UREA NITROGEN, BLOOD 33 mg/dL (7-18)
[2017-03-27] MEDS: METOPROLOL TARTRATE 25 MG TABLET GT SCH ×4 (06:00→17:01)
[2017-03-27] MEDS: BLOOD SUGAR DIAGNOSTIC 1 EACH STRIP VI SCH ×3 (06:28→21:48)
[2017-03-27] MEDS: LEVOTHYROXINE SODIUM 75 MCG TABLET GT SCH (06:29)
[2017-03-27] MEDS: ACIDOPHILUS/BULGARICUS CHEW TAB GT SCH ×3 (06:29→22:00)
--- NOTE | 2017-03-27 06:45 | NUR ---
Spoke to Dr. Vasquez re: patient's WBC and GT feedings held due to leaking around GT site. Ordered to hold feedings for now.
[2017-03-27 08:53] LABS: BAND % (MANUAL) 17 % (0-10); BASOPHILS % (MANUAL) 0 % (0-2); EOSINOPHILS % (MANUAL) 0 % (0-8); LYMPHOCYTES % (MANUAL) 2 % (20-40); MONOCYTES % (MANUAL) 5 % (2-10); NEUTROPHILS % (MANUAL) 76 % (42-75)
[2017-03-27] MEDS: ASCORBIC ACID 500 MG TABLET GT SCH ×2 (09:00→17:00)
[2017-03-27] MEDS: MIRALAX 17 GM POWD.PACK PO SCH ×2 (09:00→17:00)
[2017-03-27] MEDS ORDERED: IV NS 1000 ML 1,000 ML IV PRN (09:00)
[2017-03-27] MEDS: OXYCODONE/APAP 5-325 MG TABLET GT SCH ×2 (09:00→17:00)
[2017-03-27] MEDS: LORATADINE 10 MG TABLET PO SCH (09:00)
[2017-03-27] MEDS: PROTEIN SUPPLEMENT (PROSTAT) 30 ML LIQUID PO SCH ×2 (09:00→17:00)
[2017-03-27] MEDS: FAMOTIDINE 20 MG TABLET GT SCH ×2 (09:00→17:00)
[2017-03-27] MEDS: CLOPIDOGREL 75 MG TABLET GT SCH (09:00)
[2017-03-27] MEDS: AMIODARONE HCL 200 MG TABLET GT SCH (09:00)
[2017-03-27] MEDS: MULTIVITS W-FE,OTHER MIN 15 ML UDC GT SCH (09:00)
[2017-03-27] MEDS: GABAPENTIN 300 MG CAPSULE GT SCH ×3 (09:00→17:00)
[2017-03-27] MEDS: ZINC SULFATE 220 MG CAPSULE GT SCH (09:00)
[2017-03-27] MEDS: SODIUM HYPOCHLORITE 0.125% 473 ML BOTTLE TP SCH (09:21)
[2017-03-27] MEDS: Z GUARD REMEDY PASTE 57 GM TUBE TOP SCH ×2 (09:21→21:00)
[2017-03-27] MEDS: CLOTRIMAZOLE 1% CREAM 30 GM TUBE TOP SCH ×2 (09:21→17:32)
[2017-03-27] MEDS: AZTREONAM 1 G in IV NORMAL SALINE 50 ML IV SCH ×2 (09:22→21:19)
[2017-03-27] MEDS: CYANOCOBALAMIN 1000 MCG/ML VIAL IM SCH (09:23)
--- NOTE | 2017-03-27 10:18 | NUR ---
pt is unable to take PO or GT medications since pt's G Tube is malfunctioning, it's leaking around the stoma.
--- NOTE | 2017-03-27 14:00 | NUR ---
DR LAIRD SEEN THE PT, GAVE REPORT TO THE
--- NOTE | 2017-03-27 14:17 | NUR ---
PHARMACY NOTES (VANCOMYCIN DOSING) S: 76 YO FEMALE ON VANCOMYCIN FOR TREATMENT OF G-TUBE SITE CELLULITIS O: BUN/SCR 33/1.4; WBC 33.6 BAND 17, TEMP 98.8, stomach wound cultures Klebsiella pneumoniae Proteus mirabilis, Angelina krusei ORDERED VANCOMYCIN TROUGH LEVEL PRIOR TO NEXT DOSE.
--- NOTE | 2017-03-27 14:30 | NUR ---
VALDO GORMAN SEEN THE PT, REPORT IS GIVEN TO THE PROVIDER Addendum: 03/27/17 at 1833 by RUPINDER GUZMAN RN Valdo Abrams seen the pt, not Rene
[2017-03-27] MEDS ORDERED: NEUTRA PHOS PACKET GT ONE (16:00)
--- NOTE | 2017-03-27 16:06 | NUR ---
PER DR. LAIRD PUT IVF D51/2 NS, ALSO PUT STOOL FOR CDIFF
--- NOTE | 2017-03-27 17:00 | NUR ---
pet went to ct
[2017-03-27] MEDS ORDERED: FLUCONAZOLE 200 MG/NS 100ML IV 100 MG in PREMIXED 1 EACH IV SCH (17:15)
[2017-03-27] MEDS: IV D5 1/2 NS 1000 ML 1,000 ML IV PRN (17:29)
[2017-03-27] MEDS ORDERED: FLUCONAZOLE 200 MG/NS 100ML IV 200 MG in PREMIXED 1 EACH IV SCH (17:45)
--- NOTE | 2017-03-27 17:45 | NUR ---
pt came back from ct. V/s IANL
--- NOTE | 2017-03-27 17:48 | NUR ---
Patient taken down for CT abdomen and pelvis, tolerated transfer well, no c/of pain, no injury sustained. Back to unit at 1815.
[2017-03-27] MEDS: METRONIDAZOLE 500 MG/NS 100ML 500 MG in PREMIXED 1 EACH IV SCH (17:50)
[2017-03-27] MEDS ORDERED: FLUCONAZOLE 400MG /NS 200ML IV 400 MG in PREMIXED 1 EACH IV SCH (18:00)
--- NOTE | 2017-03-27 18:34 | NUR ---
Dr Wheeler assessed the pt, report is given
[2017-03-27] MEDS: MESALAMINE 500 MG CAPSULE.SA PO SCH (21:00)
[2017-03-27] MEDS: PRIMIDONE 50 MG TABLET GT SCH (21:00)
[2017-03-27] MEDS: INSULIN DETEMIR 300 UNIT/3 ML CARTRIDGE SQ SCH (21:00)
--- NOTE | 2017-03-27 21:00 | NUR ---
Held Levemir glucose 111.
[2017-03-27] MEDS: VANCOMYCIN IV 1 G in PREMIXED 0 EACH IV SCH ×2 (21:19→22:00)
--- NOTE | 2017-03-27 22:00 | NUR ---
Held Vancomycin through 29.7 Addendum: 03/27/17 at 2211 by FAITH BOLANOS RN trough
[2017-03-28] VITALS (13 sets, daily range): BP systolic 93–140; BP diastolic 44–80
[2017-03-28] MEDS: METOPROLOL TARTRATE 25 MG TABLET GT SCH ×5 (00:13→23:54)
[2017-03-28] MEDS: METRONIDAZOLE 500 MG/NS 100ML 500 MG in PREMIXED 1 EACH IV SCH ×3 (00:13→16:07)
[2017-03-28 05:27] LABS: EOSINOPHILS # (AUTO) 0.1 K/uL (0.0-0.7); EOSINOPHILS % (AUTO) 0.6 % (0.0-7.0); HEMATOCRIT 26.3 % (37-47); HEMOGLOBIN 8.5 G/DL (12.0-16.0); LYMPHOCYTES # (AUTO) 1.1 K/UL (0.8-4.8); LYMPHOCYTES % (AUTO) 5.2 % (20.5-51.5); MEAN CORPUSCULAR HEMOGLOBIN 28.4 UUG (27.0-31.0); MEAN CORPUSCULAR HGB CONC 32 g/dL (32.0-37.0); MEAN CORPUSCULAR VOLUME 87.9 FL (81.0-99.0); MONOCYTES # (AUTO) 0.9 K/UL (0.1-1.30); MONOCYTES % (AUTO) 4.2 % (0.0-11.0); NEUTROPHILS # (AUTO) 19.2 K/UL (1.8-8.9); PLATELET COUNT (AUTO) 413 K/UL (150-450); RED BLOOD CELL COUNT(AUTO) 2.99 MIL/UL (4.2-5.4); WHITE BLOOD COUNT (AUTO) 21.3 K/UL (4.0-11.2)
[2017-03-28 05:30] LABS: ALANINE AMINOTRANSFERASE 12 U/L (14-59); ALKALINE PHOSPHATASE 72 U/L (50-136); ASPARTATE AMINOTRANSFERASE 10 U/L (15-37); BILIRUBIN,TOTAL 0.2 mg/dL (0.2-1.0); CARBON DIOXIDE 27 mmol/L (21-32); CREATININE 1.3 mg/dL (0.6-1.3); GLUCOSE 223 mg/dL (74-106); MAGNESIUM 2.6 mg/dL (1.8-2.4); PHOSPHOROUS 2.8 mg/dL (2.5-4.9); POTASSIUM 3.5 mmol/L (3.5-5.1); UREA NITROGEN, BLOOD 29 mg/dL (7-18)
[2017-03-28 05:48] LABS: CHLORIDE 131 mmol/L (98-107)
[2017-03-28] MEDS: IV D5 1/2 NS 1000 ML 1,000 ML IV PRN ×2 (05:51→19:45)
[2017-03-28] MEDS: ACIDOPHILUS/BULGARICUS CHEW TAB GT SCH ×3 (06:00→22:12)
[2017-03-28] MEDS: VANCOMYCIN FOR PO/GT/NG USE GT SCH ×4 (06:00→23:55)
[2017-03-28] MEDS: BLOOD SUGAR DIAGNOSTIC 1 EACH STRIP VI SCH ×3 (06:30→22:32)
[2017-03-28] MEDS: LEVOTHYROXINE SODIUM 75 MCG TABLET GT SCH (07:00)
--- NOTE | 2017-03-28 08:00 | NUR ---
Dr. Zhao in the unit to examine patient; report given including abnormal lab results. was also reminded that patient remains NPO as ordered, and still awaiting to be follow up by GI physician.
[2017-03-28] MEDS ORDERED: AMIODARONE HCL IV 900 MG in IV DEXTROSE 5% 482 ML IV PRN (08:45)
[2017-03-28] MEDS ORDERED: AMIODARONE HCL IV 150 MG in IV DEXTROSE 5% 100 ML IV ONE (08:45)
[2017-03-28] MEDS: MIRALAX 17 GM POWD.PACK PO SCH ×2 (09:00→16:39)
[2017-03-28] MEDS: CYANOCOBALAMIN 1000 MCG/ML VIAL IM SCH (09:00)
[2017-03-28] MEDS: ASCORBIC ACID 500 MG TABLET GT SCH ×2 (09:00→16:05)
[2017-03-28] MEDS: ZINC SULFATE 220 MG CAPSULE GT SCH (09:00)
[2017-03-28] MEDS: CLOPIDOGREL 75 MG TABLET GT SCH (09:00)
[2017-03-28] MEDS: OXYCODONE/APAP 5-325 MG TABLET GT SCH ×2 (09:00→16:06)
[2017-03-28] MEDS: MULTIVITS W-FE,OTHER MIN 15 ML UDC GT SCH (09:00)
[2017-03-28] MEDS: PROTEIN SUPPLEMENT (PROSTAT) 30 ML LIQUID PO SCH ×2 (09:00→16:39)
[2017-03-28] MEDS: GABAPENTIN 300 MG CAPSULE GT SCH ×3 (09:00→16:05)
[2017-03-28] MEDS: FAMOTIDINE 20 MG TABLET GT SCH ×2 (09:00→16:05)
[2017-03-28] MEDS: LORATADINE 10 MG TABLET PO SCH (09:00)
[2017-03-28] MEDS: AZTREONAM 1 G in IV NORMAL SALINE 50 ML IV SCH ×2 (09:05→22:12)
[2017-03-28] MEDS: Z GUARD REMEDY PASTE 57 GM TUBE TOP SCH ×2 (09:13→22:30)
[2017-03-28] MEDS: SODIUM HYPOCHLORITE 0.125% 473 ML BOTTLE TP SCH (09:19)
[2017-03-28] MEDS: CLOTRIMAZOLE 1% CREAM 30 GM TUBE TOP SCH ×2 (09:19→16:40)
--- NOTE | 2017-03-28 09:24 | NUR ---
Dr. López called message left with call back number; NPO and G-tube leaking information left in message. Awaiting call back.
--- NOTE | 2017-03-28 11:00 | NUR ---
Pt breathing non labored. Received from CCU triple lumen right brachial PICC line intact. TELE SNR @ 90's PT on amiodorone drip 1mic/hr = 33.33 cc/hr. pt on r/a 97%. Kept pt npo - Awaiting for DR duron to see pt. DVT pump in placed. Noted redness on kris areas z-guard applied, bruising on neck, scab on right occipital lobe, Mepilex on left ankle, wound dressing on scara, lenka breast fold redness, G-tube site reddened, Right and left armpit redness, Left arm ecchymosis noted. Aspiration precaution implemented. Suctioned pt oral care done due to pt mouth was filled with dry saliva/phlegm.
[2017-03-28] MEDS: INSULIN REGULAR, HUMAN 300 UNIT/3 ML VIAL SQ PRN ×2 (13:32→22:32)
[2017-03-28] MEDS ORDERED: MICAFUNGIN SODIUM 100 MG in IV NORMAL SALINE 100 ML IV SCH (14:00)
--- NOTE | 2017-03-28 14:30 | NUR ---
Dr Mitchell here to see patient. Dr mitchell manipulated GT. Flushed G tube without any leaking noted. Per Dr Mitchell ok to restart meds and G tube.
--- NOTE | 2017-03-28 15:45 | NUR ---
Clinical pharmacy note: Vancomycin pharmacy to dose Subjective: To continue vancomycin in this 76 yo female for GT site cellulitis Objective: height 64'' weight 153 lb BUN 29 Scr 1.3 Wbc 21.3 temp 97.7 Vanco random level: 26.4 (with am labs) Assessment/Plan Since vanco trough level is above 20 mcg/ml, no dose shall be due today. Plan to draw vanco random level with am labs tomorrow. Pharmacy shall review the level when available & further dose if needed. Will continue to monitor.
[2017-03-28] MEDS: DIABETICSOURCE AC 1000ML LIQUID GT PRN (16:00)
--- NOTE | 2017-03-28 16:00 | NUR ---
G-tube Feeding Started @ 25cc/hr. G tube to be increased.to 35cc/hr at 1000pm if pt is tolerating feeding rate. Will monitor G tube in 2 hrs if leaking.
[2017-03-28] MEDS ORDERED: FLUCONAZOLE 200 MG/NS 100ML IV 200 MG in PREMIXED 1 EACH IV SCH (18:00)
--- NOTE | 2017-03-28 18:37 | NUR ---
G -tube feeding diabetasource @ 25cc/hr has no leak noted. Suctione and oral care done. Dressing on sacral wounds dressing changed as ordered. Noted sacral wound has serous drainage. Applied Z guard on periarea. Left ankle wound dressing changed applied hydrogel and mepilex.
--- NOTE | 2017-03-28 19:30 | NUR ---
nsg: pt received awake, no acute distress noted. lungs sound clear to auscultate. tele, SR. tolerating GT feeding at 25ml/hr no residual. f/c needed to be advanced due to leakage, drained clear yellow urine. pt has generalized non-pitting edema. dvt pumps in place. on first step mattress. cont to monitor.
--- NOTE | 2017-03-28 22:00 | NUR ---
nsg: Pt tolerating TF at 25ml/hr. increased TF rate to 35ml per hr per order.
[2017-03-28] MEDS: PRIMIDONE 50 MG TABLET GT SCH (22:12)
[2017-03-28] MEDS: MESALAMINE 500 MG CAPSULE.SA PO SCH (22:12)
[2017-03-28] MEDS: INSULIN DETEMIR 300 UNIT/3 ML CARTRIDGE SQ SCH (22:31)
[2017-03-28] MEDS: ONDANSETRON 4 MG/2 ML VIAL IV PRN (23:55)
[2017-03-29] VITALS: BP 121/59
--- NOTE | 2017-03-29 | NUR ---
nsg: pt vomitted small amount of TF, coughing. no TF residual. medicated with zofran. stop TF. will cont to monitor.
[2017-03-29] MEDS: METRONIDAZOLE 500 MG/NS 100ML 500 MG in PREMIXED 1 EACH IV SCH ×3 (00:04→17:18)
--- NOTE | 2017-03-29 00:42 | NUR ---
NSG: PT FEELS BETTER. RESTARTED TF AT 35ML PER HR.
[2017-03-29 04:00] VITALS: BP 116/52
--- NOTE | 2017-03-29 04:24 | NUR ---
nsg: tolerating TF rate at 35ml/hr, increased to 45ml/hr, goal rate is 55ml.
[2017-03-29] MEDS: ACIDOPHILUS/BULGARICUS CHEW TAB GT SCH ×3 (05:24→21:56)
[2017-03-29] MEDS: METOPROLOL TARTRATE 25 MG TABLET GT SCH (05:24)
[2017-03-29] MEDS: VANCOMYCIN FOR PO/GT/NG USE GT SCH ×4 (05:25→23:14)
[2017-03-29] MEDS: IV D5 1/2 NS 1000 ML 1,000 ML IV PRN (05:27)
--- NOTE | 2017-03-29 06:00 | NUR ---
nsg: turned off TF. all needs attended. kept clean and dry. repositioned.
[2017-03-29] MEDS: BLOOD SUGAR DIAGNOSTIC 1 EACH STRIP VI SCH ×3 (06:11→21:30)
[2017-03-29] MEDS: LEVOTHYROXINE SODIUM 75 MCG TABLET GT SCH (06:48)
[2017-03-29] MEDS: INSULIN REGULAR, HUMAN 300 UNIT/3 ML VIAL SQ PRN ×2 (06:48→14:22)
[2017-03-29 07:32] VITALS: BP 177/57
[2017-03-29 07:35] LABS: BASOPHILS # (AUTO) 0.1 K/uL (0.0-8.0); BASOPHILS % (AUTO) 0.6 % (0.0-2.0); EOSINOPHILS # (AUTO) 0.2 K/uL (0.0-0.7); HEMATOCRIT 30.3 % (31.2-41.9); HEMOGLOBIN 9.2 g/dL (10.9-14.3); LYMPHOCYTES % (AUTO) 5.2 % (20.5-51.5); MEAN CORPUSCULAR HGB CONC 30 g/dL (32.3-35.6); MEAN CORPUSCULAR VOLUME 88.8 fL (75.5-95.3); MONOCYTES # (AUTO) 0.6 K/uL (2.0-10.0); MONOCYTES % (AUTO) 3.2 % (0.0-11.0); NEUTROPHILS # (AUTO) 17.5 K/uL (1.8-8.9); PLATELET COUNT (AUTO) 406 K/uL (179-408); RED BLOOD CELL COUNT(AUTO) 3.41 MIL/uL (3.63-4.92); WHITE BLOOD COUNT (AUTO) 19.4 K/uL (3.8-11.8)
--- NOTE | 2017-03-29 08:00 | NUR ---
SEEN BY DR LAIRD MADE AWARE ABOUT DPA NEEDING MEDICAL IN FORMATION.
[2017-03-29 08:11] LABS: ALANINE AMINOTRANSFERASE 13 U/L (14-59); ALKALINE PHOSPHATASE 85 U/L (50-136); ASPARTATE AMINOTRANSFERASE 11 U/L (15-37); BILIRUBIN,TOTAL 0.2 mg/dL (0.2-1.0); CARBON DIOXIDE 24 mmol/L (21-32); CREATININE 1.3 mg/dL (0.6-1.3); GLUCOSE 193 mg/dL (74-106); MAGNESIUM 2.1 mg/dL (1.8-2.4); PHOSPHOROUS 1.8 mg/dL (2.5-4.9); TOTAL PROTEIN, SERUM 6.2 g/dL (6.4-8.2); UREA NITROGEN, BLOOD 22 mg/dL (7-18); VANCOMYCIN,RANDOM 17.1 ug/mL (18.0-26.0)
[2017-03-29] MEDS: ZINC SULFATE 220 MG CAPSULE GT SCH (08:14)
[2017-03-29] MEDS: MIRALAX 17 GM POWD.PACK PO SCH ×2 (08:14→17:00)
[2017-03-29] MEDS: CLOPIDOGREL 75 MG TABLET GT SCH (08:14)
[2017-03-29] MEDS: GABAPENTIN 300 MG CAPSULE GT SCH ×3 (08:15→17:00)
[2017-03-29] MEDS: OXYCODONE/APAP 5-325 MG TABLET GT SCH ×2 (08:15→17:00)
[2017-03-29] MEDS: LORATADINE 10 MG TABLET PO SCH (08:15)
[2017-03-29] MEDS: ASCORBIC ACID 500 MG TABLET GT SCH ×2 (08:15→17:00)
[2017-03-29] MEDS: CYANOCOBALAMIN 1000 MCG/ML VIAL IM SCH (08:15)
[2017-03-29] MEDS: FAMOTIDINE 20 MG TABLET GT SCH (08:16)
[2017-03-29] MEDS: SODIUM HYPOCHLORITE 0.125% 473 ML BOTTLE TP SCH (08:17)
[2017-03-29] MEDS: CLOTRIMAZOLE 1% CREAM 30 GM TUBE TOP SCH ×2 (08:17→17:13)
[2017-03-29] MEDS: Z GUARD REMEDY PASTE 57 GM TUBE TOP SCH ×2 (08:17→21:34)
[2017-03-29] MEDS: PROTEIN SUPPLEMENT (PROSTAT) 30 ML LIQUID PO SCH ×2 (08:18→17:00)
[2017-03-29 08:19] LABS: CHLORIDE 128 mmol/L (98-107); POTASSIUM 2.8 mmol/L (3.5-5.1)
[2017-03-29] MEDS: MULTIVITS W-FE,OTHER MIN 15 ML UDC GT SCH (08:21)
[2017-03-29] MEDS ORDERED: IV D5W 1000ML 1,000 ML IV ONE (09:00)
[2017-03-29] MEDS: AMIODARONE HCL 200 MG TABLET GT SCH (09:10)
[2017-03-29] MEDS: AZTREONAM 1 G in IV NORMAL SALINE 50 ML IV SCH ×2 (09:10→21:24)
--- NOTE | 2017-03-29 09:30 | NUR ---
NOTED BY ANTISQUEAK APPLIER GT CAME OUT OF SITE. DR CROWLEY AND DR LAIRD NOTIFIED AWAITING CALL BACK
[2017-03-29 09:34] LABS: BAND % (MANUAL) 7 % (0-10); EOSINOPHILS % (MANUAL) 2 % (0-8); LYMPHOCYTES % (MANUAL) 2 % (20-40); MONOCYTES % (MANUAL) 4 % (2-10); NEUTROPHILS % (MANUAL) 85 % (42-75)
[2017-03-29] MEDS ORDERED: VANCOMYCIN IV 1 G in PREMIXED 0 EACH IV ONE ×2 (11:00→12:00)
[2017-03-29 11:07] VITALS: BP 144/54
--- NOTE | 2017-03-29 12:22 | NUR ---
ALL GT MEDS NOT GIVEN GT ACCIDENTALLY PULLED OUT
--- NOTE | 2017-03-29 12:36 | NUR ---
SEEN BY DR MAYERS NOTED CS WOUND RESULTS, RECOMMENDING SURGICAL CONSULT DR DALTON AWARE
[2017-03-29] MEDS: METOPROLOL TARTRATE 5 MG/5 ML VIAL IVP SCH ×2 (13:11→21:29)
[2017-03-29 15:11] VITALS: BP 140/52
--- NOTE | 2017-03-29 16:41 | NUR ---
Clinical pharmacy note: Vancomycin pharmacy to dose Subjective: To continue vancomycin in this 76 yo female for GT site cellulitis Objective: height 64'' weight 153 lb BUN 22 Scr 1.3 Wbc 19.4 temp 98.9 Vanco random level: 17.1 (with am labs) Assessment/Plan Based on random today, dosed another 1gm x 1 vanco at 1200 today. Plan to draw vanco random level with am labs tomorrow. Pharmacy shall review the level when available & further dose if needed. Will continue to monitor.
--- NOTE | 2017-03-29 17:09 | NUR ---
ALL GT MEDS NOT GIVEN. GT ACCIDENTALLY PULLED OUT AWAITING SURGICAL CONSULT
[2017-03-29] MEDS: POTASSIUM CHLORIDE 50 ML IV SCH ×5 (17:32→23:08)
[2017-03-29 20:00] VITALS: BP 156/59
--- NOTE | 2017-03-29 20:00 | NUR ---
HERE REPLACEMENT OF G TUBE DONE,ORDER KUB WITH GASTROGRAFIN.
[2017-03-29] MEDS ORDERED: DIATR MEGLU/DIATRIZOATE SODIUM 30 ML SOLUTION ONE (20:13)
[2017-03-29] MEDS: INSULIN DETEMIR 300 UNIT/3 ML CARTRIDGE SQ SCH (21:00)
--- NOTE | 2017-03-29 21:00 | NUR ---
BLOOD SUGAR 104,LEVEMIR INSULIN HELD. KUB RESULT CONFIRMED G TUBE IN STOMACH, NO CONTRAST MATERIAL SEEN OUTSIDE G I TRACT,MO OK TO RESTARTED MED AND G TUBE FEEDING.
[2017-03-29] MEDS: FAMOTIDINE. 20 MG/2 ML VIAL IV SCH (21:27)
[2017-03-29] MEDS: PRIMIDONE 50 MG TABLET GT SCH (21:55)
[2017-03-29] MEDS: MESALAMINE 500 MG CAPSULE.SA PO SCH (21:56)
[2017-03-30] MEDS: POTASSIUM CHLORIDE 50 ML IV SCH ×3 (00:02→14:33)
[2017-03-30 00:16] VITALS: BP 149/51
[2017-03-30] MEDS: METRONIDAZOLE 500 MG/NS 100ML 500 MG in PREMIXED 1 EACH IV SCH ×3 (00:18→16:31)
--- NOTE | 2017-03-30 00:37 | NUR ---
PATIENT HAS MODERATE AMOUNT SOFT STOOL,DRESSING CHANGED TO COCCYX DECUBITUS, ON 1 STEP AIR MATTRESS, TURN AND REPOSITIONING Q 2 H, MEDICATION GIVEN TOLERATED FAIRLY WELL.ADEQUATE URINE OUT PUT.PATIENT SLEEP INTERMITTENTLY,NO DISTRESS NOTED, NSR ON MONITOR.
[2017-03-30 04:00] VITALS: BP 141/65
[2017-03-30] MEDS: VANCOMYCIN FOR PO/GT/NG USE GT SCH ×3 (05:29→16:33)
[2017-03-30] MEDS: ACIDOPHILUS/BULGARICUS CHEW TAB GT SCH ×3 (05:30→21:07)
[2017-03-30] MEDS: BLOOD SUGAR DIAGNOSTIC 1 EACH STRIP VI SCH ×3 (05:31→20:54)
[2017-03-30] MEDS: ACETAMINOPHEN 650 MG/20.3 ML LIQUID UDC GT PRN (05:41)
[2017-03-30] MEDS: DIABETICSOURCE AC 1000ML LIQUID GT PRN (06:00)
--- NOTE | 2017-03-30 06:00 | NUR ---
PATIENT HAS LARGE SOFT TO LOOSE STOOL,O2 SAT 90% ON ROOM AIR PLACED ON O2 2L/M VIA NASAL CANNULA, TO KEEP O2 SAT ABOVE 94%,BS 89.STARTED ON TUBE FEEDING AT 30 ML/HR,HOB ELEVATED AT ALL TIMES,PATIENT SLEPT WELL THROUGH THE NIGHT,NO ACUTE DISTRESS NOTED.
[2017-03-30] MEDS: LEVOTHYROXINE SODIUM 75 MCG TABLET GT SCH (06:01)
[2017-03-30 07:20] VITALS: BP 132/64
--- NOTE | 2017-03-30 07:27 | NUR ---
RESTING COMFORTABLY NO SIGNS OF PAIN OR DISTRESS. CONTINUE PLAN OF CARE
[2017-03-30 07:49] LABS: BASOPHILS # (AUTO) 0.1 K/uL (0.0-8.0); EOSINOPHILS # (AUTO) 0.5 K/uL (0.0-0.7); HEMOGLOBIN 8.9 g/dL (10.9-14.3); LYMPHOCYTES # (AUTO) 1.7 K/uL (20.0-40.0); MONOCYTES # (AUTO) 0.6 K/uL (2.0-10.0)
[2017-03-30 08:03] LABS: BASOPHILS % (AUTO) 0.6 % (0.0-2.0); EOSINOPHILS % (AUTO) 3.5 % (0.0-7.0); HEMATOCRIT 29.2 % (31.2-41.9); LYMPHOCYTES % (AUTO) 11.8 % (20.5-51.5); MEAN CORPUSCULAR HEMOGLOBIN 27.1 uug (24.7-32.8); MEAN CORPUSCULAR HGB CONC 31 g/dL (32.3-35.6); MEAN CORPUSCULAR VOLUME 88.4 fL (75.5-95.3); MONOCYTES % (AUTO) 4.5 % (0.0-11.0); NEUTROPHILS # (AUTO) 11.3 K/uL (1.8-8.9); NEUTROPHILS % (AUTO) 79.6 % (38.5-71.5); PLATELET COUNT (AUTO) 326 K/uL (179-408); WHITE BLOOD COUNT (AUTO) 14.2 K/uL (3.8-11.8)
[2017-03-30] MEDS: FAMOTIDINE. 20 MG/2 ML VIAL IV SCH ×2 (08:22→20:19)
[2017-03-30] MEDS: GABAPENTIN 300 MG CAPSULE GT SCH ×3 (08:23→16:32)
[2017-03-30] MEDS: ZINC SULFATE 220 MG CAPSULE GT SCH (08:23)
[2017-03-30] MEDS: OXYCODONE/APAP 5-325 MG TABLET GT SCH ×2 (08:23→16:32)
[2017-03-30] MEDS: CLOPIDOGREL 75 MG TABLET GT SCH (08:23)
[2017-03-30] MEDS: CYANOCOBALAMIN 1000 MCG/ML VIAL IM SCH (08:23)
[2017-03-30] MEDS: ASCORBIC ACID 500 MG TABLET GT SCH ×2 (08:23→16:31)
[2017-03-30] MEDS: AMIODARONE HCL 200 MG TABLET GT SCH (08:24)
[2017-03-30] MEDS: LORATADINE 10 MG TABLET PO SCH (08:25)
[2017-03-30] MEDS: PROTEIN SUPPLEMENT (PROSTAT) 30 ML LIQUID PO SCH ×2 (08:26→16:32)
[2017-03-30] MEDS: MIRALAX 17 GM POWD.PACK PO SCH ×2 (08:26→16:26)
[2017-03-30] MEDS: CLOTRIMAZOLE 1% CREAM 30 GM TUBE TOP SCH ×2 (08:26→16:33)
[2017-03-30] MEDS: Z GUARD REMEDY PASTE 57 GM TUBE TOP SCH ×2 (08:27→20:20)
[2017-03-30] MEDS: SODIUM HYPOCHLORITE 0.125% 473 ML BOTTLE TP SCH (08:27)
[2017-03-30] MEDS: MULTIVITS W-FE,OTHER MIN 15 ML UDC GT SCH (08:29)
[2017-03-30] MEDS: AZTREONAM 1 G in IV NORMAL SALINE 50 ML IV SCH ×2 (08:29→20:19)
[2017-03-30 08:33] LABS: ALANINE AMINOTRANSFERASE 7 U/L (14-59); ALKALINE PHOSPHATASE 84 U/L (50-136); ASPARTATE AMINOTRANSFERASE 9 U/L (15-37); BILIRUBIN,TOTAL 0.3 mg/dL (0.2-1.0); CARBON DIOXIDE 24 mmol/L (21-32); CREATININE 1.2 mg/dL (0.6-1.3); GLUCOSE 96 mg/dL (74-106); MAGNESIUM 2.1 mg/dL (1.8-2.4); PHOSPHOROUS 1.7 mg/dL (2.5-4.9); POTASSIUM 3.1 mmol/L (3.5-5.1); UREA NITROGEN, BLOOD 17 mg/dL (7-18); VANCOMYCIN,RANDOM 25.8 ug/mL (18.0-26.0)
[2017-03-30] MEDS: METOPROLOL TARTRATE 5 MG/5 ML VIAL IVP SCH ×2 (08:37→20:20)
[2017-03-30 08:38] LABS: CHLORIDE 134 mmol/L (98-107)
[2017-03-30 10:30] LABS: EOSINOPHILS % (MANUAL) 6 % (0-8); LYMPHOCYTES % (MANUAL) 17 % (20-40); MONOCYTES % (MANUAL) 4 % (2-10); NEUTROPHILS % (MANUAL) 73 % (42-75)
[2017-03-30 11:02] VITALS: BP 169/78
--- NOTE | 2017-03-30 12:00 | NUR ---
SEEN BY DR DHALIWAL NOTED LABS WITH ORDERS
[2017-03-30] MEDS ORDERED: POTASSIUM PHOSPHATE MM 5 MMOL in IV DEXTROSE 5% 100 ML IV ONE (13:30)
[2017-03-30] MEDS: INSULIN REGULAR, HUMAN 300 UNIT/3 ML VIAL SQ PRN ×2 (14:16→21:11)
--- NOTE | 2017-03-30 14:56 | NUR ---
Clinical pharmacy note: Vancomycin pharmacy to dose Subjective: To continue vancomycin in this 76 yo female for GT site cellulitis Objective: height 64'' weight 153 lb BUN 17 Scr 1.2 Wbc 14.2 temp 98.9 Vanco random level: 25.8 (with am labs) Assessment/Plan Based on random today, no dose shall be given today. Last dose was given 03/29 at 1200. Plan to draw vanco random level with am labs tomorrow. Pharmacy shall review the level when available & further dose if needed. Will continue to monitor.
[2017-03-30 15:11] VITALS: BP 166/83
[2017-03-30] MEDS: POTASSIUM CHLORIDE 20 MEQ in IV D5W 1000ML 1,000 ML IV PRN (15:48)
--- NOTE | 2017-03-30 18:01 | NUR ---
CONTINUE PLAN OF CARE AND RAÚL MONITORING. REMAINS SR ON MONITOR
--- NOTE | 2017-03-30 18:29 | NUR ---
SEEN BY KEYBOARDING TEACHER FOR SURGICAL CONSULT UNDER DR STYLES SEE NOTES
[2017-03-30 20:00] VITALS: BP 150/77
--- NOTE | 2017-03-30 20:00 | NUR ---
patient awake,confused,in no acute distress,NSR on monitor,tolerated g tube feeding , no g tube site leaked noted,turn and reposition,bilateral heels floated on pillows.
[2017-03-30] MEDS: PRIMIDONE 50 MG TABLET GT SCH (20:19)
[2017-03-30] MEDS: MESALAMINE 500 MG CAPSULE.SA PO SCH (20:50)
[2017-03-30] MEDS: INSULIN DETEMIR 300 UNIT/3 ML CARTRIDGE SQ SCH (20:57)
[2017-03-31] VITALS: BP 140/68
[2017-03-31] MEDS: VANCOMYCIN FOR PO/GT/NG USE GT SCH ×4 (00:29→17:38)
[2017-03-31] MEDS: METRONIDAZOLE 500 MG/NS 100ML 500 MG in PREMIXED 1 EACH IV SCH ×3 (00:29→17:37)
[2017-03-31] MEDS: ACIDOPHILUS/BULGARICUS CHEW TAB GT SCH ×3 (05:38→21:12)
[2017-03-31] MEDS: POTASSIUM CHLORIDE 20 MEQ in IV D5W 1000ML 1,000 ML IV PRN ×2 (05:38→14:37)
[2017-03-31] MEDS: BLOOD SUGAR DIAGNOSTIC 1 EACH STRIP VI SCH ×3 (05:44→21:28)
[2017-03-31] MEDS: INSULIN REGULAR, HUMAN 300 UNIT/3 ML VIAL SQ PRN ×3 (05:49→21:27)
[2017-03-31 06:00] VITALS: BP 155/77
--- NOTE | 2017-03-31 06:00 | NUR ---
Turn off tube feeding, has large amount of liquid stool, keep clean and dry,dressing changed to coccyx,wound clean,no acute distress.
[2017-03-31] MEDS: LEVOTHYROXINE SODIUM 75 MCG TABLET GT SCH (06:47)
[2017-03-31 06:52] LABS: ALANINE AMINOTRANSFERASE 8 U/L (14-59); ALKALINE PHOSPHATASE 93 U/L (50-136); ASPARTATE AMINOTRANSFERASE 12 U/L (15-37); BILIRUBIN,TOTAL 0.3 mg/dL (0.2-1.0); CARBON DIOXIDE 25 mmol/L (21-32); CREATININE 1.1 mg/dL (0.6-1.3); GLUCOSE 295 mg/dL (74-106); PHOSPHOROUS 1.7 mg/dL (2.5-4.9); TOTAL PROTEIN, SERUM 5.7 g/dL (6.4-8.2); UREA NITROGEN, BLOOD 22 mg/dL (7-18); VANCOMYCIN,RANDOM 15.7 ug/mL (18.0-26.0)
--- NOTE | 2017-03-31 07:00 | NUR ---
RECEIVED REPORT FROM PATROL CONDUCTOR NURSE, PATIENT IN BED ASLEEP, NO ACUTE DISTRESS NOTED, BED IN LOW POSITION, SIDE RAILS UP X2.
[2017-03-31 07:05] LABS: POTASSIUM 4.3 mmol/L (3.5-5.1)
[2017-03-31 07:23] LABS: BASOPHILS % (AUTO) 0.1 % (0.0-2.0); EOSINOPHILS # (AUTO) 0.8 K/uL (0.0-0.7); EOSINOPHILS % (AUTO) 7.6 % (0.0-7.0); HEMATOCRIT 28.9 % (37-47); HEMOGLOBIN 8.9 G/DL (12.0-16.0); LYMPHOCYTES # (AUTO) 1.6 K/UL (0.8-4.8); MEAN CORPUSCULAR HEMOGLOBIN 27.4 UUG (27.0-31.0); MEAN CORPUSCULAR HGB CONC 31 g/dL (32.0-37.0); MEAN CORPUSCULAR VOLUME 89.1 FL (81.0-99.0); MONOCYTES # (AUTO) 0.5 K/UL (0.1-1.30); MONOCYTES % (AUTO) 4.8 % (0.0-11.0); NEUTROPHILS % (AUTO) 72.5 % (38.5-71.5); RED BLOOD CELL COUNT(AUTO) 3.24 MIL/UL (4.2-5.4); WHITE BLOOD COUNT (AUTO) 10.9 K/UL (4.0-11.2)
[2017-03-31 07:24] LABS: CHLORIDE 129 mmol/L (98-107)
[2017-03-31 07:28] VITALS: BP 147/70
[2017-03-31 07:40] LABS: PLATELET COUNT (AUTO) 301 K/UL (150-450)
[2017-03-31] MEDS: CLOTRIMAZOLE 1% CREAM 30 GM TUBE TOP SCH ×2 (08:54→17:37)
[2017-03-31] MEDS: Z GUARD REMEDY PASTE 57 GM TUBE TOP SCH ×2 (08:54→21:28)
[2017-03-31] MEDS: SODIUM HYPOCHLORITE 0.125% 473 ML BOTTLE TP SCH (09:00)
[2017-03-31] MEDS: MIRALAX 17 GM POWD.PACK PO SCH ×2 (09:00→17:00)
[2017-03-31] MEDS: PROTEIN SUPPLEMENT (PROSTAT) 30 ML LIQUID PO SCH ×2 (09:00→17:37)
[2017-03-31] MEDS: MULTIVITS W-FE,OTHER MIN 15 ML UDC GT SCH (09:00)
[2017-03-31] MEDS: METOPROLOL TARTRATE 5 MG/5 ML VIAL IVP SCH ×2 (09:00→21:14)
[2017-03-31] MEDS: GABAPENTIN 300 MG CAPSULE GT SCH ×3 (09:59→17:36)
[2017-03-31] MEDS: AMIODARONE HCL 200 MG TABLET GT SCH (09:59)
[2017-03-31] MEDS: ASCORBIC ACID 500 MG TABLET GT SCH ×2 (10:00→17:37)
[2017-03-31] MEDS: ZINC SULFATE 220 MG CAPSULE GT SCH (10:00)
[2017-03-31] MEDS: OXYCODONE/APAP 5-325 MG TABLET GT SCH ×2 (10:00→17:37)
[2017-03-31] MEDS: AZTREONAM 1 G in IV NORMAL SALINE 50 ML IV SCH ×2 (10:01→21:17)
[2017-03-31] MEDS: FAMOTIDINE. 20 MG/2 ML VIAL IV SCH ×2 (10:01→21:17)
[2017-03-31] MEDS: CYANOCOBALAMIN 1000 MCG/ML VIAL IM SCH (10:01)
[2017-03-31] MEDS: CLOPIDOGREL 75 MG TABLET GT SCH (10:05)
[2017-03-31] MEDS: LORATADINE 10 MG TABLET PO SCH (10:11)
[2017-03-31] MEDS ORDERED: VANCOMYCIN IV 1 G in PREMIXED 0 EACH IV ONE (11:00)
[2017-03-31 11:37] LABS: EOSINOPHILS % (MANUAL) 7 % (0-8); LYMPHOCYTES % (MANUAL) 17 % (20-40); METAMYELOCYTES % 2 % (0-1); MONOCYTES % (MANUAL) 3 % (2-10); MYELOCYTES % 2 % (0-0); NEUTROPHILS % (MANUAL) 69 % (42-75)
[2017-03-31 11:49] VITALS: BP 135/78
--- NOTE | 2017-03-31 15:00 | NUR ---
Tube feeding was stopped as leakage observed at the g-tube site. Contacted Dr. Brannon and notified message taker to relay message.
[2017-03-31 15:23] VITALS: BP 130/62
--- NOTE | 2017-03-31 16:00 | NUR ---
Called Dr. Brannon's office again to inquire if he had received first message. Quality Checker advised that the prior message was relayed. Asked human resources manager manufacturing to have him call the hospital to speak with nursing for further orders.
[2017-03-31] MEDS ORDERED: NEUTRA PHOS PACKET GT ONE (16:15)
--- NOTE | 2017-03-31 18:47 | NUR ---
Patient is in bed, no evidence of distress noted at this time, all needs met, bed is in low position, side rails up x2. Feeding is currently stopped awaiting direction from Dr. Brannon for follow up.
--- NOTE | 2017-03-31 19:30 | NUR ---
nsg: pt received awake but confused. no acute distress noted. lungs sound clear to auscultate. tele, SR. TF is off. per am nurse, TF started leaking yellowish drainage at around 1500. flushed TF with 50ml of H2O, no leak fr GT site. Dr. López was called to be notified but hasnt called back. will cont to monitor gt site for leakage. started TF at 30ml/hr, previous rate before it was turned off. f/c draining clear yellow urine via gravity. on 1st step mattress. dvt pumps in place. HOB elevated 35 degrees. cont to monitor.
[2017-03-31 20:00] VITALS: BP 138/56
--- NOTE | 2017-03-31 20:30 | NUR ---
NSG: ABD IS SOFT BUT FEELS FULL. CHECK TF RESIDUAL, NO RESIDUAL OBTAINED. CONT TO MONITOR.
--- NOTE | 2017-03-31 21:00 | NUR ---
nsg: increased TF rate to 40ml/hr. will recheck residual.
[2017-03-31] MEDS: PRIMIDONE 50 MG TABLET GT SCH (21:12)
[2017-03-31] MEDS: MESALAMINE 500 MG CAPSULE.SA PO SCH (21:12)
[2017-03-31] MEDS: INSULIN DETEMIR 300 UNIT/3 ML CARTRIDGE SQ SCH (21:26)
--- NOTE | 2017-03-31 22:30 | NUR ---
nsg: no TF residual.
[2017-04-01] VITALS: BP 145/72
[2017-04-01] MEDS: METRONIDAZOLE 500 MG/NS 100ML 500 MG in PREMIXED 1 EACH IV SCH ×3 (00:47→16:58)
[2017-04-01] MEDS: VANCOMYCIN FOR PO/GT/NG USE GT SCH ×4 (00:47→17:08)
[2017-04-01] MEDS: POTASSIUM CHLORIDE 20 MEQ in IV D5W 1000ML 1,000 ML IV PRN ×2 (00:47→14:32)
[2017-04-01 04:00] VITALS: BP 123/58
--- NOTE | 2017-04-01 05:25 | NUR ---
nsg: all needs attended. no acute distress noted. v/s stable. tele, SR. TF is at 40ml/hr. tolerating well, no residual. cont to monitor.
[2017-04-01] MEDS: LEVOTHYROXINE SODIUM 75 MCG TABLET GT SCH (05:43)
[2017-04-01] MEDS: ACIDOPHILUS/BULGARICUS CHEW TAB GT SCH ×3 (05:43→21:52)
[2017-04-01 06:50] LABS: CARBON DIOXIDE 24 mmol/L (21-32); CHLORIDE 117 mmol/L (98-107); CREATININE 1.1 mg/dL (0.6-1.3); GLUCOSE 61 mg/dL (74-106); PHOSPHOROUS 2.3 mg/dL (2.5-4.9); POTASSIUM 4.3 mmol/L (3.5-5.1); UREA NITROGEN, BLOOD 19 mg/dL (7-18)
[2017-04-01] MEDS: BLOOD SUGAR DIAGNOSTIC 1 EACH STRIP VI SCH ×5 (07:24→22:05)
[2017-04-01] MEDS: DEXTROSE 50% 50 ML DISP.SYRIN IV PRN ×2 (07:35→13:46)
[2017-04-01 07:55] VITALS: BP 148/73
--- NOTE | 2017-04-01 08:00 | NUR ---
awake, oriented to0 self only. head of bed elevated, on 2l/nc, GT tube in place and patent, no leak noted on site, GT fdg restarted at 50ml/hr, no residual noted, PICC line on the right upper arm- IVF infusing on the right port, two other ports non functioning, tele SR 90's, repositioned and am care done by HOME THEATER EXPERT, wound care done as ordered on the sacral area, left lateral heel dsg on, aspiration precaution observed, safety measures maintained, no distress noted, blood sugar rechecked- 177
[2017-04-01] MEDS: ASCORBIC ACID 500 MG TABLET GT SCH ×2 (08:58→16:58)
[2017-04-01] MEDS: ZINC SULFATE 220 MG CAPSULE GT SCH (08:58)
[2017-04-01] MEDS: FAMOTIDINE. 20 MG/2 ML VIAL IV SCH ×2 (08:58→20:32)
[2017-04-01] MEDS: CLOPIDOGREL 75 MG TABLET GT SCH (08:59)
[2017-04-01] MEDS: OXYCODONE/APAP 5-325 MG TABLET GT SCH ×2 (08:59→16:58)
[2017-04-01] MEDS: GABAPENTIN 300 MG CAPSULE GT SCH ×3 (08:59→16:58)
[2017-04-01] MEDS: LORATADINE 10 MG TABLET PO SCH (08:59)
[2017-04-01] MEDS: AMIODARONE HCL 200 MG TABLET GT SCH (08:59)
[2017-04-01] MEDS: MIRALAX 17 GM POWD.PACK PO SCH ×2 (09:00→16:58)
[2017-04-01] MEDS: MULTIVITS W-FE,OTHER MIN 15 ML UDC GT SCH (09:06)
[2017-04-01] MEDS: PROTEIN SUPPLEMENT (PROSTAT) 30 ML LIQUID PO SCH ×2 (09:11→16:59)
[2017-04-01] MEDS: CLOTRIMAZOLE 1% CREAM 30 GM TUBE TOP SCH ×2 (09:11→16:59)
[2017-04-01] MEDS: Z GUARD REMEDY PASTE 57 GM TUBE TOP SCH ×2 (09:12→20:33)
[2017-04-01] MEDS: CYANOCOBALAMIN 1000 MCG/ML VIAL IM SCH (09:13)
[2017-04-01] MEDS: METOPROLOL TARTRATE 5 MG/5 ML VIAL IVP SCH ×2 (09:13→20:32)
[2017-04-01] MEDS: AZTREONAM 1 G in IV NORMAL SALINE 50 ML IV SCH ×2 (09:13→20:31)
[2017-04-01] MEDS: SODIUM HYPOCHLORITE 0.125% 473 ML BOTTLE TP SCH (09:13)
[2017-04-01] MEDS: DIABETICSOURCE AC 1000ML LIQUID GT PRN (09:54)
--- NOTE | 2017-04-01 10:40 | NUR ---
seen by Dr Morgan- downgraded to tele
[2017-04-01] MEDS ORDERED: POTASSIUM PHOSPHATE MM 5 MMOL in IV DEXTROSE 5% 100 ML IV ONE (11:00)
[2017-04-01 11:28] VITALS: BP 132/58
--- NOTE | 2017-04-01 12:00 | NUR ---
repositioned with heels off loaded with pillows, kept head of bed elevated, had a liquid stool- cleansed and kept clean and dry, abdomen soft and not distended, no residual from feeding, tube fdg at 50ml/hr-aspiration precaution observed
--- NOTE | 2017-04-01 14:00 | NUR ---
cleansed GT site with Ns but noted to have a moderate amount of leak at the site when dsg was removed- site redressed
--- NOTE | 2017-04-01 14:45 | NUR ---
placed a call to Dr Chand and informed of the leak
[2017-04-01 15:53] VITALS: BP 117/52
--- NOTE | 2017-04-01 16:12 | NUR ---
Dr Chand here and evaluated pt- removed GT and reinserted and kept it snug, okay to use a GT- tube fdg resumed at 50ml/hr, no residual noted, kept head of bed elevated
--- NOTE | 2017-04-01 16:24 | NUR ---
spoke with the nurse (Hailee) as noticed moderate amount of leak at the site GT site, which has been evaluated by Dr Chand,and is okay to use GTfeeding. Currently Tube feeding is running at 50 cc/hr x22 hrs, rec increase to goal rate of 55cc/hr x 22 hrs Diabetisoruce + prostate BID (200 kcal,30 gm protein),which will provide 1652 kcal, 103 gm protein, and 1787 ml water per day weight discrepancy noticed, likely due to fluid shift vs other factors labs:04/01 POC 151,Glucose 61,NA-149(H),phos-2.3(L),WBC-10.9(has been improved),RBC-3.24,Hgb/Hct-8.9/28.9 monitor:Tolerate TF with minimum residual, no leaking,new weight,new labs,skin integrity Addendum: 04/01/17 at [address] Amended: Links added.
--- NOTE | 2017-04-01 18:25 | NUR ---
tube fdg diabetasource infusing at 55ml/hr, no residual noted, aspiration precautions observed, no distress noted, all needs attended, repositioned q2h with heels offloaded with pillows, safety measures maintained
[2017-04-01 19:36] VITALS: BP 153/70
[2017-04-01] MEDS: PRIMIDONE 50 MG TABLET GT SCH (20:31)
[2017-04-01] MEDS: MESALAMINE 500 MG CAPSULE.SA PO SCH (21:53)
[2017-04-01] MEDS: INSULIN DETEMIR 300 UNIT/3 ML CARTRIDGE SQ SCH (22:04)
[2017-04-02] VITALS: BP 119/70
[2017-04-02] MEDS: METRONIDAZOLE 500 MG/NS 100ML 500 MG in PREMIXED 1 EACH IV SCH ×2 (00:14→09:49)
[2017-04-02] MEDS: POTASSIUM CHLORIDE 20 MEQ in IV D5W 1000ML 1,000 ML IV PRN ×2 (00:14→09:49)
[2017-04-02] MEDS: VANCOMYCIN FOR PO/GT/NG USE GT SCH ×3 (00:14→12:14)
[2017-04-02 04:00] VITALS: BP 120/61
[2017-04-02] MEDS: ACIDOPHILUS/BULGARICUS CHEW TAB GT SCH (05:04)
[2017-04-02] MEDS: BLOOD SUGAR DIAGNOSTIC 1 EACH STRIP VI SCH (05:11)
[2017-04-02] MEDS: LEVOTHYROXINE SODIUM 75 MCG TABLET GT SCH (06:07)
[2017-04-02 06:10] LABS: BASOPHILS % (AUTO) 0.2 % (0.0-2.0); EOSINOPHILS # (AUTO) 0.7 K/uL (0.0-0.7); EOSINOPHILS % (AUTO) 7.1 % (0.0-7.0); HEMATOCRIT 31.7 % (37-47); HEMOGLOBIN 9.8 G/DL (12.0-16.0); LYMPHOCYTES % (AUTO) 20.3 % (20.5-51.5); MEAN CORPUSCULAR HEMOGLOBIN 26.9 UUG (27.0-31.0); MEAN CORPUSCULAR HGB CONC 31 g/dL (32.0-37.0); MONOCYTES # (AUTO) 0.6 K/UL (0.1-1.30); MONOCYTES % (AUTO) 6.2 % (0.0-11.0); NEUTROPHILS # (AUTO) 6.6 K/UL (1.8-8.9); NEUTROPHILS % (AUTO) 66.2 % (38.5-71.5); PLATELET COUNT (AUTO) 239 K/UL (150-450); WHITE BLOOD COUNT (AUTO) 9.9 K/UL (4.0-11.2)
[2017-04-02 06:33] LABS: ALANINE AMINOTRANSFERASE 9 U/L (14-59); ALKALINE PHOSPHATASE 100 U/L (50-136); ASPARTATE AMINOTRANSFERASE 12 U/L (15-37); BILIRUBIN,TOTAL 0.2 mg/dL (0.2-1.0); CARBON DIOXIDE 21 mmol/L (21-32); CHLORIDE 112 mmol/L (98-107); CREATININE 1.1 mg/dL (0.6-1.3); GLUCOSE 231 mg/dL (74-106); PHOSPHOROUS 2.8 mg/dL (2.5-4.9); POTASSIUM 4.6 mmol/L (3.5-5.1); UREA NITROGEN, BLOOD 21 mg/dL (7-18)
[2017-04-02 06:43] LABS: RED BLOOD CELL COUNT(AUTO) 3.64 MIL/UL (4.2-5.4)
--- NOTE | 2017-04-02 07:06 | NUR ---
Received patient asleep, lying on bed with head of bed above 45 degrees, call light within reach, with Blanco catheter, patent no kinks with a yellowish colored urine. GT patent, no residual noted. No signs and symptoms of distress or discomforts noted. Will continue to monitor patient closely.
[2017-04-02] MEDS: DIABETICSOURCE AC 1000ML LIQUID GT PRN (07:57)
[2017-04-02 08:03] LABS: BAND % (MANUAL) 1 % (0-10); EOSINOPHILS % (MANUAL) 10 % (0-8); LYMPHOCYTES % (MANUAL) 21 % (20-40); METAMYELOCYTES % 1 % (0-1); MONOCYTES % (MANUAL) 7 % (2-10); MYELOCYTES % 1 % (0-0); NEUTROPHILS % (MANUAL) 59 % (42-75)
[2017-04-02] MEDS: MIRALAX 17 GM POWD.PACK PO SCH (09:00)
--- NOTE | 2017-04-02 09:00 | NUR ---
WOUND CARE TREATMENT DONE. NO SIGNS AND SYMPTOMS OF INFECTION. PATIENT TOLERATED WELL THE TREATMENT
[2017-04-02] MEDS: GABAPENTIN 300 MG CAPSULE GT SCH (09:10)
[2017-04-02] MEDS: CYANOCOBALAMIN 1000 MCG/ML VIAL IM SCH (09:10)
[2017-04-02] MEDS: LORATADINE 10 MG TABLET PO SCH (09:10)
[2017-04-02] MEDS: FAMOTIDINE. 20 MG/2 ML VIAL IV SCH (09:10)
[2017-04-02] MEDS: ZINC SULFATE 220 MG CAPSULE GT SCH (09:11)
[2017-04-02] MEDS: ASCORBIC ACID 500 MG TABLET GT SCH (09:11)
[2017-04-02] MEDS: MULTIVITS W-FE,OTHER MIN 15 ML UDC GT SCH (09:12)
[2017-04-02] MEDS: AMIODARONE HCL 200 MG TABLET GT SCH (09:12)
[2017-04-02] MEDS: CLOPIDOGREL 75 MG TABLET GT SCH (09:12)
[2017-04-02] MEDS: PROTEIN SUPPLEMENT (PROSTAT) 30 ML LIQUID PO SCH (09:13)
[2017-04-02] MEDS: METOPROLOL TARTRATE 5 MG/5 ML VIAL IVP SCH (09:18)
[2017-04-02] MEDS: OXYCODONE/APAP 5-325 MG TABLET GT SCH (09:18)
[2017-04-02] MEDS: Z GUARD REMEDY PASTE 57 GM TUBE TOP SCH (09:38)
[2017-04-02] MEDS: CLOTRIMAZOLE 1% CREAM 30 GM TUBE TOP SCH (09:38)
[2017-04-02] MEDS: SODIUM HYPOCHLORITE 0.125% 473 ML BOTTLE TP SCH (09:39)
[2017-04-02] MEDS: AZTREONAM 1 G in IV NORMAL SALINE 50 ML IV SCH (09:49)
--- NOTE | 2017-04-02 11:00 | NUR ---
Patient was seen and examined by Jose Angel Ayala with order to discharge back the patient to the [facility]. Called patient's family and notified. Noted and carried out. Patient informed.
[2017-04-02] MEDS ORDERED: LEVO75TA7 GT (11:07)
[2017-04-02] MEDS ORDERED: CLOT30CR24 TOP (11:07)
[2017-04-02] MEDS ORDERED: VANC500V GT (11:07)
[2017-04-02] MEDS ORDERED: SODI473S8 TP (11:07)
[2017-04-02] MEDS ORDERED: MESA250C2 PO (11:07)
[2017-04-02] MEDS ORDERED: AMIO200T6 GT (11:07)
[2017-04-02 11:48] VITALS: BP 134/64
--- NOTE | 2017-04-02 12:52 | NUR ---
The patient will be discharged today back to the [facility] [ ; [address] [place] [address]] via [facility]. 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 Also spoke to Crystal from the [facility] and she confirmed that they will re-admit the patient today back to her old room. Her RN, Kasey, is aware of her discharge plan and will call the facility for the report.
--- NOTE | 2017-04-02 14:45 | NUR ---
[facility], accompanied by 2 EMT staff on a gurney in stable condition, no SOB, distress or discomforts noted. All belongings were complete. Discharge instructions and wound care treatment orders were discussed to both the EMT staff and the receiving nurse, ED Roca from the [facility] address: [address] [place] [address] with telephone number : . All discharge paperworks were given to the EMT staff from [facility] to be given to the [facility]. Called patient's family and informed that patient is being picked- up.
== END 2017-04-02 15:00 | DRG 871 ==
LOC: ER 12:41 → MED 20:57 → TELE 03-26 17:14 → CCU 03-26 21:15 → TELE-TD 03-28 10:48 → TELE 04-01 10:40
PROVIDERS: ADMIT Internal Medicine Nephrology; ATTEND Internal Medicine
PROC: 0D2DXUZ Change Feeding Device in Lower Intestinal Tract, External Approach (ICD-10-PCS; principal; 2017-03-23)
PROC: 02HV33Z Insertion of Infusion Device into Superior Vena Cava, Percutaneous Approach (ICD-10-PCS; 2017-03-27)
DX: A41.9 Sepsis, unspecified organism (principal); R65.21 Severe sepsis with septic shock; L89.154 Pressure ulcer of sacral region, stage 4; G93.40 Encephalopathy, unspecified; J15.9 Unspecified bacterial pneumonia; K94.22 Gastrostomy infection; E11.40 Type 2 diabetes mellitus with diabetic neuropathy, unspecified; E11.22 Type 2 diabetes mellitus with diabetic chronic kidney disease; E11.65 Type 2 diabetes mellitus with hyperglycemia; E11.69 Type 2 diabetes mellitus with other specified complication; E87.0 Hyperosmolality and hypernatremia; E87.2 Acidosis; I69.354 Hemiplegia and hemiparesis following cerebral infarction affecting left non-dominant side; L03.311 Cellulitis of abdominal wall; N39.0 Urinary tract infection, site not specified; M46.28 Osteomyelitis of vertebra, sacral and sacrococcygeal region; Z43.1 Encounter for attention to gastrostomy; I13.0 Hypertensive heart and chronic kidney disease with heart failure and stage 1 through stage 4 chronic kidney disease, or unspecified chronic kidney disease; K56.41 Fecal impaction; E86.0 Dehydration; I69.391 Dysphagia following cerebral infarction; R13.10 Dysphagia, unspecified; Z74.01 Bed confinement status; B96.1 Klebsiella pneumoniae [K. pneumoniae] as the cause of diseases classified elsewhere; B96.4 Proteus (mirabilis) (morganii) as the cause of diseases classified elsewhere; Z16.11 Resistance to penicillins; Z16.29 Resistance to other single specified antibiotic; Z79.4 Long term (current) use of insulin; D32.9 Benign neoplasm of meninges, unspecified; E78.5 Hyperlipidemia, unspecified; R32 Unspecified urinary incontinence; Z88.1 Allergy status to other antibiotic agents; Z88.0 Allergy status to penicillin; N18.9 Chronic kidney disease, unspecified; I50.9 Heart failure, unspecified; E03.9 Hypothyroidism, unspecified; E87.6 Hypokalemia; F03.90 Unspecified dementia, unspecified severity, without behavioral disturbance, psychotic disturbance, mood disturbance, and anxiety; Z98.49 Cataract extraction status, unspecified eye; I71.4 Abdominal aortic aneurysm, without rupture; N20.0 Calculus of kidney; Y83.3 Surgical operation with formation of external stoma as the cause of abnormal reaction of the patient, or of later complication, without mention of misadventure at the time of the procedure; K21.9 Gastro-esophageal reflux disease without esophagitis; D64.9 Anemia, unspecified; Z86.19 Personal history of other infectious and parasitic diseases; E53.8 Deficiency of other specified B group vitamins; R91.8 Other nonspecific abnormal finding of lung field; K52.89 Other specified noninfective gastroenteritis and colitis
CPT/HCPCS: 36415; 36569; 71010; 71250; 74000; 83550; 83605; 83735; 84100; 85025; 87040; 87070; 87077; 87086; 93005; A4217; A4663; J0282; J1450; J1815; J2248; J2405; J3370; J3420; J3480; J3490; J7030; J7040; J7042; J7060; J7070; Q9963

== ENCOUNTER 2017-11-29 17:25 | Inpatient (IN) | payer MEDICARE, MEDICAID ==
[~2017-11-29] VITALS: Ht 152.4 cm; Wt 64.4 kg
[~2017-11-29 17:25] MED LIST changes: +ALBU2.5V38 NEB; +AMIN30LI2 PO; +AMIO200T2 GT; +AMIO200T6 GT; +ASCO-375 GT; -ATEN25TA PO; -CALC1TAB30 PO; +CLOT30CR24 TOP; +DUL RC; -DULO30CA51 PO; -EXEN5PEN2 SQ; +FAMO20TA8 GT; +GABA-534 GT; -GABA-536 PO; -GLIP5TAB13 PO; +INSU100V7 SQ; -KETO15CR2 TP; -LEVO50TA8 PO; +LEVO75TA7 GT; +LORA-258 GT; +MESA10002 RC; +MESA250C2 PO; -METO-295 PO; +METO25TA6 GT; -MULT1TAB11 PO; +OXYC-128 PO; -PANT40TA2 PO; +POLY17PO3 PO; -POLY17PO4 PO; -RANI150T12 PO; -ROSU20TA PO; +SODI473S8 TP; -VANC125C2 PO; +VANC500V GT; +ZINC500P16 MC; +[UNRECOGNIZED DRUG - CODE] PO; +humalog SQ
--- NOTE | 2017-11-29 17:30 | NUR ---
JORDAN DUBOIS, PT [employer] [facility] CALLED AND UPDATED HER PHONE NUMBER TO [phone]
[2017-11-29] MEDS ORDERED: IPRATROPIUM BROMIDE 0.5 MG/2.5 ML NEBU ONE ×2 (17:54→21:32)
[2017-11-29] MEDS ORDERED: ALBUTEROL SULFATE 2.5 MG/ 0.5 ML NEBU ONE (17:54)
[2017-11-29] MEDS ORDERED: methylPREDNISolone SOD SUCC 125 MG/2 ML VIAL IV ONE (18:00)
[2017-11-29] MEDS ORDERED: IPRATROPIUM BROMIDE 0.5 MG/2.5 ML NEBU NEB ONE ×2 (18:00→21:30)
[2017-11-29] MEDS ORDERED: ALBUTEROL SULFATE 2.5 MG/3 ML NEBU NEB ONE ×2 (18:00→21:30)
[2017-11-29 18:13] LABS: ABG BASE EXCESS -0.4 mmol/L; ABG HCO3 22.3 mmol/L; ABG PCO2 30.3 mmHg (35.0-45.0); ABG PH 7.485 (7.350-7.450); ABG PO2 63.7 mmHg (75.0-100.0); ABG SITE LEFT RADIAL; ABG TOTAL HEMOGLOBIN 10.9 G/dL (12.0-16.0); MetHb 0.2 % (0.0-1.5); O2Hb 90.6 % (94.0-97.0)
[2017-11-29] MEDS ORDERED: methylPREDNISolone SOD SUCC 125 MG/2 ML VIAL ONE (18:21)
[2017-11-29 18:24] LABS: BASOPHILS % (AUTO) 0.4 % (0.0-2.0); EOSINOPHILS # (AUTO) 0.2 K/uL (0.0-0.7); EOSINOPHILS % (AUTO) 1.7 % (0.0-7.0); HEMATOCRIT 35.9 % (31.2-41.9); HEMOGLOBIN 11.4 g/dL (10.9-14.3); LYMPHOCYTES % (AUTO) 9.2 % (20.5-51.5); MEAN CORPUSCULAR HEMOGLOBIN 29.8 uug (24.7-32.8); MEAN CORPUSCULAR HGB CONC 32 g/dL (32.3-35.6); MEAN CORPUSCULAR VOLUME 93.6 fL (75.5-95.3); MONOCYTES # (AUTO) 0.8 K/uL (2.0-10.0); MONOCYTES % (AUTO) 7.3 % (0.0-11.0); NEUTROPHILS # (AUTO) 8.5 K/uL (1.8-8.9); NEUTROPHILS % (AUTO) 81.4 % (38.5-71.5); PLATELET COUNT (AUTO) 266 K/uL (179-408); RED BLOOD CELL COUNT(AUTO) 3.83 MIL/uL (3.63-4.92); WHITE BLOOD COUNT (AUTO) 10.4 K/uL (3.8-11.8)
[2017-11-29 18:35] LABS: CARBON DIOXIDE 24 mmol/L (21-32); CHLORIDE 105 mmol/L (98-107); CREATININE 1.7 mg/dL (0.6-1.3); GLUCOSE 296 mg/dL (74-106); UREA NITROGEN, BLOOD 51 mg/dL (7-18)
[2017-11-29] MEDS ORDERED: CYAN10009 GT (18:44)
[2017-11-29] MEDS ORDERED: METO25TA6 GT (18:44)
[2017-11-29] MEDS ORDERED: OXYC-128 GT ×2 (18:44)
[2017-11-29] MEDS ORDERED: BLOO-140 IN (18:44)
[2017-11-29] MEDS ORDERED: GEL100GE MC (18:44)
[2017-11-29] MEDS ORDERED: NYST15CR2 TP (18:44)
[2017-11-29] MEDS ORDERED: LEVO75TA7 GT (18:44)
[2017-11-29] MEDS ORDERED: ZINC57OI4 TP (18:44)
[2017-11-29] MEDS ORDERED: SODI473S8 MC (18:44)
[2017-11-29] MEDS ORDERED: ZINC220C8 GT (18:44)
[2017-11-29] MEDS ORDERED: ACET325T53 GT (18:44)
[2017-11-29] MEDS ORDERED: MUPI22OI2 (18:44)
[2017-11-29] MEDS ORDERED: HEPA50008 IJ (18:44)
[2017-11-29] MEDS ORDERED: AMIN30LI24 PO (18:44)
[2017-11-29] MEDS ORDERED: CLOP75TA15 GT (18:44)
[2017-11-29] MEDS ORDERED: IPRA0.2S6 NEB (18:44)
[2017-11-29] MEDS ORDERED: [UNRECOGNIZED DRUG - CODE] GT (18:44)
[2017-11-29] MEDS ORDERED: L. R1CAP3 GT (18:44)
[2017-11-29] MEDS ORDERED: ALBU2.5V38 IH (18:44)
[2017-11-29 18:48] LABS: ALANINE AMINOTRANSFERASE 20 U/L (14-59); ALKALINE PHOSPHATASE 96 U/L (50-136); ASPARTATE AMINOTRANSFERASE 13 U/L (15-37); BILIRUBIN,TOTAL 0.5 mg/dL (0.2-1.0); CREATINE KINASE, TOTAL 76 U/L (26-192); MAGNESIUM 3.1 mg/dL (1.8-2.4); TOTAL PROTEIN, SERUM 7.7 g/dL (6.4-8.2)
[2017-11-29 19:07] LABS: *BILIRUBIN,URIN NEGATIVE (NEGATIVE); *BLOOD, URINE NEGATIVE (NEGATIVE); *CLARITY,URINE SLIGHTLY CLOUDY (CLEAR); *KETONES,URINE NEGATIVE (NEGATIVE); *UROBILINOGEN,URINE 0.2 E.U./dl (NORMAL); LEUKOCYTE ESTERASE ,URINE 1+ (NEGATIVE); NITRITE, URINE NEGATIVE (NEGATIVE); PH,URINE >=9.0 (5.0-8.0)
--- NOTE | 2017-11-29 19:17 | NUR ---
HANDS OFF REPORT GIVEN TO ED MARIA
[2017-11-29 19:19] LABS: *PROTEIN,URINE 3+ (NEGATIVE); UGLUCOSE 2+ (NEGATIVE)
[2017-11-29 19:26] LABS: *COLOR,URINE YELLOW (YELLOW); BACTERIA,URINE MANY /HPF (NONE SEEN); RBC,URINE 0-3 /HPF (0-3); SQUAMOUS EPITHELIAL CELL,UR FEW /HPF (NONE SEEN); TRIPLE PHOSPHATE CRYSTAL,UR FEW /HPF (NONE SEEN)
[2017-11-29] MEDS ORDERED: MORPHINE SULFATE 4 MG/1 ML DISP.SYRIN ONE (19:26)
[2017-11-29] MEDS ORDERED: ONDANSETRON 4 MG/2 ML VIAL ONE (19:26)
[2017-11-29] MEDS ORDERED: ONDANSETRON 4 MG/2 ML VIAL IV ONE (19:30)
[2017-11-29] MEDS ORDERED: LEVOFLOXACIN 500 MG/D5W 100ML PIGGYBACK IV ONE (19:30)
[2017-11-29] MEDS ORDERED: MORPHINE SULFATE 2 MG/1 ML DISP.SYRIN IV ONE (19:30)
[2017-11-29] MEDS ORDERED: LEVOFLOXACIN 500 MG/D5W 100 ML ONE (19:36)
--- NOTE | 2017-11-29 19:52 | NUR ---
ULTRASOUND AT BEDSIDE
[2017-11-29] MEDS ORDERED: MEROPENEM 1 G VIAL IV ONE (20:42)
[2017-11-29] MEDS ORDERED: ENOXAPARIN SODIUM 40 MG/0.4 ML DISP.SYRIN SQ ONE ×2 (20:45→20:58)
[2017-11-29] MEDS: VANCOMYCIN IV 1,000 MG in IV DEXTROSE 5% 250 ML IV ONE (20:45)
[2017-11-29] MEDS ORDERED: MEROPENEM 1,000 MG in IV NORMAL SALINE 250 ML IV ONE (20:45)
--- NOTE | 2017-11-29 20:58 | NUR ---
GAVE REPORT TO CAITLIN WARD
--- NOTE | 2017-11-29 21:30 | NUR ---
RT AT BEDSIDE
[2017-11-29] MEDS ORDERED: ALBUTEROL SULFATE 2.5 MG/3 ML NEBU ONE (21:31)
[2017-11-29] MEDS ORDERED: VANCOMYCIN IV 200 ML ONE (22:22)
--- NOTE | 2017-11-29 22:29 | NUR ---
VANCOMYCIN STARTED AT 2225
--- NOTE | 2017-11-29 22:37 | NUR ---
Pt. admitted to [facility] , under care of Dr. Vasquez Belongs List completed. MRSA swab completed.
[2017-11-29 23:23] VITALS: BP 124/64
--- NOTE | 2017-11-29 23:23 | NUR ---
ADMITTED PT. FROM ER VIA [facility] W/ ADMITTING DX OF PNEUMONIA. PT. IS APHASIC W/ GOOD EYE CONTACT. ON O2 @ 100% NRM W/ O2 SAT OF 100%. HEP LOCK INTACT ON PALOMA INTACT & PATENT. RECTAL TUBE LEAKING CHANGED & IRRIGATED. FONTAINE CATH IS OUT, REINSERTED W/ #16 W/O DIFFICULTY DRAING TO CLOUDY JAYLEEN URINE.C-SCOPE ST-SR, BP STABLE..
[2017-11-30] VITALS (15 sets, daily range): BP systolic 85–137; BP diastolic 42–72
[2017-11-30] MEDS ORDERED: MAGNESIUM HYDROXIDE 30 ML LIQUID UDC PO PRN (00:30)
[2017-11-30] MEDS ORDERED: ZOLPIDEM 5 MG TABLET PO PRN (00:30)
[2017-11-30] MEDS ORDERED: ZINC SULFATE 220 MG CAPSULE GT SCH (01:30)
--- NOTE | 2017-11-30 03:20 | NUR ---
BEDBATH GIVEN. OPEN AREA ON SACRUM CLEANED W/ NS , HYDROGEL APPLIED & COVERED W/. MEPILEX DRSG. CLEANED G-TUBE SITE & COVERED W/ DRSG. REPOSITIONED PT ON HER SIDE W/ HOB ELRVATED.
--- NOTE | 2017-11-30 06:00 | NUR ---
FONTAINE CATH IS OUT AGAIN, INSERTED A BIGGER SIZE # 18. REPOSITIONED PT.W/ HOB ELEVATED.
--- NOTE | 2017-11-30 06:20 | NUR ---
PLACED PT ON O2 @ 3LNC W/ O2 SAT OF 97%.
[2017-11-30] MEDS: AMIODARONE HCL 200 MG TABLET GT SCH (08:58)
[2017-11-30] MEDS: LEVOTHYROXINE SODIUM 75 MCG TABLET GT SCH (08:59)
[2017-11-30] MEDS: CLOPIDOGREL 75 MG TABLET GT SCH (08:59)
[2017-11-30] MEDS: CYANOCOBALAMIN 1,000 MCG TABLET GT SCH (08:59)
[2017-11-30] MEDS: ASCORBIC ACID 500 MG TABLET GT SCH ×2 (08:59→17:50)
[2017-11-30] MEDS: FAMOTIDINE 20 MG TABLET GT SCH (08:59)
[2017-11-30] MEDS: ZINC SULFATE 220 MG CAPSULE GT SCH (08:59)
[2017-11-30] MEDS ORDERED: MUPIROCIN 2% OINT 22 GM TUBE NS SCH ×2 (09:00)
[2017-11-30] MEDS ORDERED: SODIUM HYPOCHLORITE 0.125% 473 ML BOTTLE TP SCH (09:00)
[2017-11-30] MEDS: METOPROLOL TARTRATE 25 MG TABLET GT SCH ×2 (09:01→17:50)
[2017-11-30] MEDS: MEROPENEM 0.5 G in IV NORMAL SALINE 50 ML IV SCH ×2 (09:17→21:02)
[2017-11-30] MEDS: NYSTATIN/TRIAMCINOLONE CREAM 15 GM TUBE TP SCH ×2 (09:17→21:04)
[2017-11-30] MEDS: SODIUM HYPOCHLORITE 0.125% 473 ML BOTTLE TP SCH (09:20)
[2017-11-30] MEDS ORDERED: MUPIROCIN 2% OINT 22 GM TUBE TP SCH (09:23)
[2017-11-30] MEDS ORDERED: ACIDOPHILUS/BULGARICUS CHEW TAB GT SCH (09:30)
--- NOTE | 2017-11-30 09:30 | NUR ---
At this time patient with a large episode of vomiting, light brown food content noted. Patient suctioned mouth care given. Saturation remains in the mid- to upper 90's. Patient tachypneic RR in the upper 20's coughing noted.
--- NOTE | 2017-11-30 10:00 | NUR ---
Patient with period of desaturation all the way to the Mid-80's RT notified and oxygen increase to 4 liters and BT given. Saturation improved.
[2017-11-30] MEDS: IPRATROPIUM BROMIDE 0.5 MG/2.5 ML NEBU NEB PRN ×2 (10:08→19:16)
[2017-11-30] MEDS: ALBUTEROL SULFATE 2.5 MG/3 ML NEBU IH PRN (10:09)
[2017-11-30] MEDS: MULTIVIT, IRON, MIN NO. 8, FA TABLET GT SCH (10:23)
[2017-11-30] MEDS: LORATADINE 10 MG TABLET GT SCH (10:24)
--- NOTE | 2017-11-30 12:35 | NUR ---
A call to Dr. Ramos to notify low blood pressure. Awaiting call back.
--- NOTE | 2017-11-30 13:40 | NUR ---
Dr. Ramos in the unit to examine patient; full report given, also informed that [facility] would like to get a call for an update of condition. Addendum: 11/30/17 at 1419 by JEWEL BERNARDO RN Orders received, see order history.
[2017-11-30 15:16] LABS: BASOPHILS % (AUTO) 0.4 % (0.0-2.0); EOSINOPHILS # (AUTO) 0.1 K/uL (0.0-0.7); EOSINOPHILS % (AUTO) 0.9 % (0.0-7.0); HEMATOCRIT 33.8 % (31.2-41.9); HEMOGLOBIN 10.4 g/dL (10.9-14.3); LYMPHOCYTES # (AUTO) 0.4 K/uL (20.0-40.0); LYMPHOCYTES % (AUTO) 4.4 % (20.5-51.5); MEAN CORPUSCULAR HEMOGLOBIN 29.3 uug (24.7-32.8); MEAN CORPUSCULAR HGB CONC 31 g/dL (32.3-35.6); MEAN CORPUSCULAR VOLUME 95.5 fL (75.5-95.3); MONOCYTES # (AUTO) 0.7 K/uL (2.0-10.0); MONOCYTES % (AUTO) 8.1 % (0.0-11.0); NEUTROPHILS % (AUTO) 86.2 % (38.5-71.5); PLATELET COUNT (AUTO) 250 K/uL (179-408); RED BLOOD CELL COUNT(AUTO) 3.54 MIL/uL (3.63-4.92); WHITE BLOOD COUNT (AUTO) 9.3 K/uL (3.8-11.8)
[2017-11-30 15:31] LABS: ALANINE AMINOTRANSFERASE 20 U/L (14-59); ALKALINE PHOSPHATASE 82 U/L (50-136); ASPARTATE AMINOTRANSFERASE 21 U/L (15-37); BILIRUBIN,TOTAL 0.5 mg/dL (0.2-1.0); CARBON DIOXIDE 21 mmol/L (21-32); CHLORIDE 108 mmol/L (98-107); CREATININE 1.6 mg/dL (0.6-1.3); MAGNESIUM 3.2 mg/dL (1.8-2.4); PHOSPHOROUS 4.4 mg/dL (2.5-4.9); POTASSIUM 4.9 mmol/L (3.5-5.1); TOTAL PROTEIN, SERUM 7.5 g/dL (6.4-8.2); UREA NITROGEN, BLOOD 61 mg/dL (7-18)
[2017-11-30 15:32] LABS: GLUCOSE 451 mg/dL (74-106)
[2017-11-30] MEDS: IV NS 1000 ML 1,000 ML IV PRN (15:56)
--- NOTE | 2017-11-30 16:09 | NUR ---
Clinical pharmacy note-Vancomycin dosing per pharmacy S: To start Vancomycin dosing on this patient for pneumonia O:BUN 51 Scr 1.7 WBC 10.4 Temp 98.2 A/P: Patient had 1 gram last night at 2044. Since renal function is decreased, will dose by vancomycin random for now. Random is on order for tonight at 1800. Will follow the level for further dosing. Addendum: 11/30/17 at 1846 by SUYAPA FREGOSO ADM VANCOMYCIN RANDOM LEVEL 14.4 WILL ADMINISTER ANOTHER DOSE OF VANCOMYCIN 1 GM @ 1999. WILL FOLLOW UP
[2017-11-30] MEDS ORDERED: DEXTROSE 50% 50 ML DISP.SYRIN IV PRN (16:15)
[2017-11-30] MEDS: BLOOD SUGAR DIAGNOSTIC 1 EACH STRIP VI SCH ×2 (19:38→23:29)
[2017-11-30] MEDS: INSULIN REGULAR, HUMAN 300 UNIT/3 ML VIAL SQ PRN ×2 (19:41→23:30)
[2017-11-30] MEDS ORDERED: VANCOMYCIN IV 1 G in PREMIXED 0 EACH IV ONE (20:00)
--- NOTE | 2017-11-30 20:00 | NUR ---
RECEIVED PT VERBALLY RESPONSIVE BUT CONFUSED & DISORIENTED. ON O2 @ 4LNC W/ O2 SAT OF 99%. IVF NS @ 100CC/HR ON ESTHER MIDLINE. HEP LOCK INTACT & PATENT ON PALOMA. C-SCOPE SR. G-TUBE INTACT & PATENT, REMAINS CLAMPED. FLEXISEAL INTACT & IRRIGATED. REPOSITIONED ON HER SIDE W/ HOB ELEVATED.
[2017-11-30] MEDS: LACTOBACILLUS RHAMNOSUS GG 1 EACH CAPSULE GT SCH (21:02)
--- NOTE | 2017-11-30 22:30 | NUR ---
SUCTIONED BY RT OROPHARYNGEALLY & INTRANASALLY W/ LARGE AMT OF THICK TANNISH MUCOUS. ORAL CARE DONE..
--- NOTE | 2017-11-30 23:00 | NUR ---
HS CARE DONE. ORAL CARE DONE. REPOSITIONED W/ HOB ELEVATED.
[2017-12-01] VITALS (24 sets, daily range): BP systolic 93–132; BP diastolic 39–79
--- NOTE | 2017-12-01 02:05 | NUR ---
PT. IS RESTING QUITELY THIS TIME. V/S STABLE.
--- NOTE | 2017-12-01 04:00 | NUR ---
AM CARE DONE. ORAL CARE DONE. CLEANED SACRAL WOUND W/ DAIKIN JESÚS. & COVERED W/ MEPILEX DRSG. CLEANED G-TUBE W/ HYDROGEN PEROXIDE.
[2017-12-01] MEDS: BLOOD SUGAR DIAGNOSTIC 1 EACH STRIP VI SCH ×6 (04:29→23:37)
[2017-12-01] MEDS: INSULIN REGULAR, HUMAN 300 UNIT/3 ML VIAL SQ PRN ×4 (04:32→20:04)
[2017-12-01] MEDS: IV NS 1000 ML 1,000 ML IV PRN ×2 (04:54→15:49)
--- NOTE | 2017-12-01 05:35 | NUR ---
REPOSITIONED ON HER SIDE W/ HOB ELEVATED. NOT IN ANY DISTRESS.
[2017-12-01 05:41] LABS: ALANINE AMINOTRANSFERASE 23 U/L (14-59); ALKALINE PHOSPHATASE 72 U/L (50-136); ASPARTATE AMINOTRANSFERASE 10 U/L (15-37); BILIRUBIN,TOTAL 0.4 mg/dL (0.2-1.0); CARBON DIOXIDE 25 mmol/L (21-32); CHLORIDE 119 mmol/L (98-107); CHOLESTEROL 296 mg/dL (<200); CREATININE 1.5 mg/dL (0.6-1.3); GLUCOSE 181 mg/dL (74-106); HDL CHOLESTEROL 10 mg/dL (40-60); MAGNESIUM 2.9 mg/dL (1.8-2.4); PHOSPHOROUS 2.9 mg/dL (2.5-4.9); POTASSIUM 4.1 mmol/L (3.5-5.1); TOTAL PROTEIN, SERUM 7.2 g/dL (6.4-8.2); TRIGLYCERIDES 651 MG/DL (30-150); UREA NITROGEN, BLOOD 50 mg/dL (7-18)
[2017-12-01 05:48] LABS: BASOPHILS % (AUTO) 0.4 % (0.0-2.0); EOSINOPHILS % (AUTO) 0.1 % (0.0-7.0); HEMOGLOBIN 10.8 g/dL (10.9-14.3); LYMPHOCYTES # (AUTO) 0.6 K/uL (20.0-40.0); LYMPHOCYTES % (AUTO) 6.8 % (20.5-51.5); MEAN CORPUSCULAR HEMOGLOBIN 29.8 uug (24.7-32.8); MEAN CORPUSCULAR HGB CONC 32 g/dL (32.3-35.6); MEAN CORPUSCULAR VOLUME 94.2 fL (75.5-95.3); MONOCYTES # (AUTO) 0.5 K/uL (2.0-10.0); MONOCYTES % (AUTO) 6.4 % (0.0-11.0); NEUTROPHILS # (AUTO) 7.2 K/uL (1.8-8.9); NEUTROPHILS % (AUTO) 86.3 % (38.5-71.5); PLATELET COUNT (AUTO) 250 K/uL (179-408); WHITE BLOOD COUNT (AUTO) 8.3 K/uL (3.8-11.8)
[2017-12-01 06:11] LABS: CREATINE KINASE, TOTAL 25 U/L (26-192)
[2017-12-01] MEDS: IPRATROPIUM BROMIDE 0.5 MG/2.5 ML NEBU NEB PRN ×3 (07:22→19:07)
[2017-12-01] MEDS: ALBUTEROL SULFATE 2.5 MG/3 ML NEBU IH PRN ×3 (07:22→19:07)
--- NOTE | 2017-12-01 09:01 | NUR ---
ferdinand 156, covered with 2 units humulin R SQ Addendum: 12/01/17 at 0901 by SUDHAKAR ETIENNE RN Amended: Links added.
[2017-12-01] MEDS: LACTOBACILLUS RHAMNOSUS GG 1 EACH CAPSULE GT SCH ×2 (09:18→20:07)
[2017-12-01] MEDS: FAMOTIDINE 20 MG TABLET GT SCH (09:18)
[2017-12-01] MEDS: MULTIVIT, IRON, MIN NO. 8, FA TABLET GT SCH (09:18)
[2017-12-01] MEDS: LEVOTHYROXINE SODIUM 75 MCG TABLET GT SCH (09:18)
[2017-12-01] MEDS: CYANOCOBALAMIN 1,000 MCG TABLET GT SCH (09:18)
[2017-12-01] MEDS: CLOPIDOGREL 75 MG TABLET GT SCH (09:18)
[2017-12-01] MEDS: AMIODARONE HCL 200 MG TABLET GT SCH (09:18)
[2017-12-01] MEDS: ASCORBIC ACID 500 MG TABLET GT SCH ×2 (09:18→17:14)
[2017-12-01] MEDS: ZINC SULFATE 220 MG CAPSULE GT SCH (09:19)
[2017-12-01] MEDS: METOPROLOL TARTRATE 25 MG TABLET GT SCH ×2 (09:19→17:14)
[2017-12-01] MEDS: LORATADINE 10 MG TABLET GT SCH (09:20)
[2017-12-01] MEDS: PROTEIN SUPPLEMENT (PROSTAT) 30 ML LIQUID GT SCH ×3 (09:20→17:14)
[2017-12-01] MEDS: MEROPENEM 0.5 G in IV NORMAL SALINE 50 ML IV SCH ×2 (09:28→20:07)
[2017-12-01] MEDS: NYSTATIN/TRIAMCINOLONE CREAM 15 GM TUBE TP SCH ×2 (09:29→20:03)
--- NOTE | 2017-12-01 10:30 | NUR ---
seen by Clari Baker NP for surgery. Meredith to sacral wound discontinued. wountd treatment ordered Addendum: 12/01/17 at 1334 by SUDHAKAR ETIENNE RN Amended: Links added. Addendum: 12/01/17 at 1335 by SUDHAKAR ETIENNE RN Amended: Links added.
--- NOTE | 2017-12-01 12:28 | NUR ---
ferdinand 157, covered with 2 units humulin R SQ Addendum: 12/01/17 at 1228 by SUDHAKAR ETIENNE RN Amended: Links added.
[2017-12-01] MEDS: SODIUM HYPOCHLORITE 0.125% 473 ML BOTTLE TP SCH (12:33)
--- NOTE | 2017-12-01 13:35 | NUR ---
seen by Yanet arreguin ID. orders received. also seen by Dr Morgan. orders received. Addendum: 12/01/17 at 1335 by SUDHAKAR ETIENNE RN Amended: Links added.
--- NOTE | 2017-12-01 14:27 | NUR ---
Clinical pharmacy note-Vancomycin dosing per pharmacy S: To continue Vancomycin dosing on this patient for pneumonia O:BUN 50 Scr 1.5 WBC 8.3 Temp 97.9 A/P: Since renal function is still unstable, will continue to dose by fall random level for now. Vancomycin 1 gram was given last night at 2000, another random is on order for tonight at 1800. Will follow the level for further dosing.
--- NOTE | 2017-12-01 15:01 | NUR ---
seen by dr dowd. orders received. Addendum: 12/01/17 at 1501 by SUDHAKAR ETIENNE RN Amended: Links added.
--- NOTE | 2017-12-01 17:38 | NUR ---
accucheck 118, no insulin coverage. Addendum: 12/01/17 at 1738 by SUDHAKAR ETIENNE RN Amended: Tiffanie added. Addendum: 12/01/17 at 1751 by SUDHAKAR ETIENNE RN Amended: Tiffanie added.
--- NOTE | 2017-12-01 17:52 | NUR ---
breathing treatment with chest PT given per Olit RT. also sucioned nastracheally Addendum: 12/01/17 at 175 by SUDHAKAR ETIENNE RN Amended: Links added. Addendum: 12/01/17 at 175 by SUDHAKAR ETIENNE RN Amended: Links added.
[2017-12-01] MEDS: VANCOMYCIN FOR PO/GT/NG USE PO SCH ×2 (17:57→23:07)
[2017-12-01] MEDS ORDERED: LEVOFLOXACIN 750MG/D5W 750 MG in PREMIXED 1 EACH IV SCH (19:00)
--- NOTE | 2017-12-01 19:15 | NUR ---
received patient in bed awake ,alert x1, patient verbally responsive and able to answer simple questions . left side hemiplegia noted left upper and lower extremities flaccid but right side upper and lower able to moved but weak,reorientation done and continue to monitor v/s and levels of comfort Addendum: 12/01/17 at 2137 by CHECO WARD RN Amended: Links added.
--- NOTE | 2017-12-01 19:30 | NUR ---
rounds made tolerating 02 nasal cannula at 5 l min . no respiratory distress noted rr 20 saturation 98% hob up,aspiration precaution observed. Addendum: 12/01/17 at 2124 by CHECO WARD RN Amended: Links added.
--- NOTE | 2017-12-01 19:45 | NUR ---
oral care done suction patient via mouth ,noted patient with moderate secretion and with + gag and cough , when suctioning patient noted small vomitus yellowish in amt about 50 ml hob up . aspiration precaution observed .RN will give Zofran .
--- NOTE | 2017-12-01 20:00 | NUR ---
pm care done ,changed soiled linens and gown . checked sacral area with dressing CDI ,f/c ,oral care done . turned and reposition .elevated upper and lower extremities with pillow and bilateral heels offloaded. Addendum: 12/01/17 at 2129 by CHECO WARD RN Amended: Links added.
[2017-12-01] MEDS: ACETAMINOPHEN 325 MG TABLET GT PRN ×2 (20:07→23:38)
[2017-12-01] MEDS: ONDANSETRON 4 MG/2 ML VIAL IV PRN (20:08)
--- NOTE | 2017-12-01 22:00 | NUR ---
wean 02 to 3 liters/min patient desaturated to 88% place back to 02 at 5 liters / min .
[2017-12-01] MEDS: Z GUARD REMEDY PASTE 57 GM TUBE TOP PRN (23:38)
[2017-12-02] VITALS (17 sets, daily range): BP systolic 95–146; BP diastolic 52–81
[2017-12-02] MEDS: ALBUTEROL SULFATE 2.5 MG/3 ML NEBU IH PRN ×4 (00:35→19:18)
[2017-12-02] MEDS: IPRATROPIUM BROMIDE 0.5 MG/2.5 ML NEBU NEB PRN ×3 (00:35→16:04)
[2017-12-02] MEDS: IV NS 1000 ML 1,000 ML IV PRN (03:01)
[2017-12-02] MEDS: BLOOD SUGAR DIAGNOSTIC 1 EACH STRIP VI SCH ×5 (03:37→19:49)
[2017-12-02] MEDS: ONDANSETRON 4 MG/2 ML VIAL IV PRN ×2 (03:38→20:37)
[2017-12-02] MEDS: VANCOMYCIN FOR PO/GT/NG USE PO SCH ×3 (05:11→17:02)
[2017-12-02 05:25] LABS: BASOPHILS % (AUTO) 0.1 % (0.0-2.0); EOSINOPHILS # (AUTO) 0.4 K/uL (0.0-0.7); EOSINOPHILS % (AUTO) 4.3 % (0.0-7.0); HEMATOCRIT 33.6 % (31.2-41.9); HEMOGLOBIN 10.5 g/dL (10.9-14.3); LYMPHOCYTES # (AUTO) 0.5 K/uL (20.0-40.0); LYMPHOCYTES % (AUTO) 4.8 % (20.5-51.5); MEAN CORPUSCULAR HEMOGLOBIN 29.6 uug (24.7-32.8); MEAN CORPUSCULAR HGB CONC 31 g/dL (32.3-35.6); MEAN CORPUSCULAR VOLUME 95.1 fL (75.5-95.3); MONOCYTES # (AUTO) 0.7 K/uL (2.0-10.0); MONOCYTES % (AUTO) 6.4 % (0.0-11.0); NEUTROPHILS # (AUTO) 8.8 K/uL (1.8-8.9); NEUTROPHILS % (AUTO) 84.4 % (38.5-71.5); PLATELET COUNT (AUTO) 255 K/uL (179-408); RED BLOOD CELL COUNT(AUTO) 3.53 MIL/uL (3.63-4.92); WHITE BLOOD COUNT (AUTO) 10.4 K/uL (3.8-11.8)
[2017-12-02 05:34] LABS: ALANINE AMINOTRANSFERASE 16 U/L (14-59); ALKALINE PHOSPHATASE 74 U/L (50-136); ASPARTATE AMINOTRANSFERASE 9 U/L (15-37); BILIRUBIN,TOTAL 0.3 mg/dL (0.2-1.0); CARBON DIOXIDE 24 mmol/L (21-32); CHLORIDE 115 mmol/L (98-107); CREATININE 1.3 mg/dL (0.6-1.3); GLUCOSE 93 mg/dL (74-106); MAGNESIUM 2.5 mg/dL (1.8-2.4); PHOSPHOROUS 2.9 mg/dL (2.5-4.9); TOTAL PROTEIN, SERUM 6.7 g/dL (6.4-8.2); UREA NITROGEN, BLOOD 45 mg/dL (7-18)
[2017-12-02 06:13] LABS: BAND % (MANUAL) 4 % (0-10); EOSINOPHILS % (MANUAL) 2 % (0-8); LYMPHOCYTES % (MANUAL) 4 % (20-40); MONOCYTES % (MANUAL) 3 % (2-10); MYELOCYTES % 1 % (0-0); NEUTROPHILS % (MANUAL) 86 % (42-75)
--- NOTE | 2017-12-02 08:41 | NUR ---
no insulin coverage for accucheck 108 Addendum: 12/02/17 at 0841 by SUDHAKAR ETIENNE RN Amended: Tiffanie added. Addendum: 12/02/17 at 0842 by SUDHAKAR ETIENNE RN Amended: Tiffanie daniel.
--- NOTE | 2017-12-02 08:42 | NUR ---
breathing treatment with chest PT done by Abner JIMENEZ, followed bu nasotracheal suctioning. patient is awake and resistant to care Addendum: 12/02/17 at 0842 by SUDHAKAR ETIENNE RN Amended: Links added.
[2017-12-02] MEDS: LACTOBACILLUS RHAMNOSUS GG 1 EACH CAPSULE GT SCH ×2 (08:43→20:31)
[2017-12-02] MEDS: MULTIVIT, IRON, MIN NO. 8, FA TABLET GT SCH (08:43)
[2017-12-02] MEDS: LEVOTHYROXINE SODIUM 75 MCG TABLET GT SCH (08:43)
[2017-12-02] MEDS: ZINC SULFATE 220 MG CAPSULE GT SCH (08:43)
[2017-12-02] MEDS: CLOPIDOGREL 75 MG TABLET GT SCH (08:43)
[2017-12-02] MEDS: FAMOTIDINE 20 MG TABLET GT SCH (08:43)
[2017-12-02] MEDS: LORATADINE 10 MG TABLET GT SCH (08:44)
[2017-12-02] MEDS: METOPROLOL TARTRATE 25 MG TABLET GT SCH ×2 (08:44→17:02)
[2017-12-02] MEDS: ASCORBIC ACID 500 MG TABLET GT SCH ×2 (08:44→17:02)
[2017-12-02] MEDS: CYANOCOBALAMIN 1,000 MCG TABLET GT SCH (08:44)
[2017-12-02] MEDS: AMIODARONE HCL 200 MG TABLET GT SCH (08:44)
[2017-12-02] MEDS: MEROPENEM 0.5 G in IV NORMAL SALINE 50 ML IV SCH ×2 (08:45→20:31)
[2017-12-02] MEDS: PROTEIN SUPPLEMENT (PROSTAT) 30 ML LIQUID GT SCH ×3 (08:45→17:02)
[2017-12-02] MEDS: NYSTATIN/TRIAMCINOLONE CREAM 15 GM TUBE TP SCH ×2 (08:46→20:31)
[2017-12-02] MEDS: SODIUM HYPOCHLORITE 0.125% 473 ML BOTTLE TP SCH (08:47)
[2017-12-02] MEDS: Z GUARD REMEDY PASTE 57 GM TUBE TOP PRN (08:48)
[2017-12-02] MEDS: ACETAMINOPHEN 325 MG TABLET GT PRN ×2 (08:49→17:02)
--- NOTE | 2017-12-02 09:50 | NUR ---
seen by dr Wheeler. orders received. Addendum: 12/02/17 at 0953 by SUDHAKAR ETIENNE RN Amended: Links added.
[2017-12-02 10:21] LABS: *BILIRUBIN,URIN NEGATIVE (NEGATIVE); *BLOOD, URINE NEGATIVE (NEGATIVE); *CLARITY,URINE TURBID (CLEAR); *COLOR,URINE YELLOW (YELLOW); *KETONES,URINE NEGATIVE (NEGATIVE); *PROTEIN,URINE 2+ (NEGATIVE); *UROBILINOGEN,URINE 0.2 E.U./dl (NORMAL); LEUKOCYTE ESTERASE ,URINE 1+ (NEGATIVE); NITRITE, URINE NEGATIVE (NEGATIVE); PH,URINE 5.5 (5.0-8.0); UGLUCOSE 3+ (NEGATIVE)
[2017-12-02 10:28] LABS: *CREATININE,URINE 39.4 mg/dL (30-125); *URINE TOTAL PROTEIN RANDOM 155.9 mg/dL (<150/24HR)
[2017-12-02 10:42] LABS: BACTERIA,URINE NONE SEEN /HPF (NONE SEEN); SQUAMOUS EPITHELIAL CELL,UR NONE SEEN /HPF (NONE SEEN); YEAST,URINE MANY /HPF (NONE SEEN)
[2017-12-02] MEDS: POTASSIUM CHLORIDE 50 ML IV SCH ×2 (11:09→11:51)
[2017-12-02] MEDS: INSULIN REGULAR, HUMAN 300 UNIT/3 ML VIAL SQ PRN (11:14)
--- NOTE | 2017-12-02 11:34 | NUR ---
ferdinand 147, covered with 2 units Humulin R SQ Addendum: 12/02/17 at 1135 by SUDHAKAR ETIENNE RN Amended: Links added.
--- NOTE | 2017-12-02 11:47 | NUR ---
seen by dr Garnica. orders received Addendum: 12/02/17 at 1147 by SUDHAKAR ETIENNE RN Amended: Links added.
--- NOTE | 2017-12-02 13:37 | NUR ---
abd/pelvic CT scan result relayed to Dr Garnica. Addendum: 12/02/17 at 1337 by SUDHAKAR ETIENNE RN Amended: Links added.
[2017-12-02] MEDS: IV D5/ 0.9% NACL 1,000 ML IV SCH (13:42)
--- NOTE | 2017-12-02 15:05 | NUR ---
Spoke with Dr. Garnica on the telephone and stated that it was okay to downgrade pt to telemetry and start pt on g-tube feeding per dietary recommendations.
[2017-12-02] MEDS ORDERED: NEPRO 1000 ML GT PRN (15:15)
--- NOTE | 2017-12-02 16:03 | NUR ---
call to dr Garnica re: possible downgrade. and possibly feed the patient. orders received Addendum: 12/02/17 at 1604 by SUDHAKAR ETIENNE RN Amended: Links added.
--- NOTE | 2017-12-02 16:12 | NUR ---
Clinical pharmacy note-Vancomycin dosing per pharmacy S: To continue Vancomycin dosing on this patient for pneumonia O:BUN 45 Scr 1.5 WBC 10.4 Temp 98.4 Random: today with am labs 21.7 A/P: Since renal function is still unstable, will continue to dose by fall random level for now. Vancomycin 1 gram was given last 11/30 at 1999, no dose for today based on today's random. Next random due tomorrow with am labs. Will check and re-dose as needed. Will follow
--- NOTE | 2017-12-02 18:34 | NUR ---
transferred in from [facility] to tele bed room 203, 77 yr old female, admitted on 11/29/17 for pneumonia. patient was a [facility] resident, full code. alert and verbal. speaks at least 2 languages. 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 on room air. needed breathing treatments times 2 this shift plus chest PT and deep nasotracheal suctioning. has a gt and receiving tube fdg of nepro started at 25ml/hr. goal is 40ml/hr. has a chowdhury catheter #18. chowdhury cath had been replaced because fc #16 was found out on admission. has a flexiseal for diarrhea. specimen sent to lab for cdiff/ on first step select air mattress. has a decub ulcer. see ct scan for result re osteomylitis. placed on temporary contact isolation for pending positive results. iv fluid d5ns at 50ml/hr via right upper arm midline. has a saline lock on left upper arm. ekg is sinus rhythm. accuchecks q 4hrs. last accucheck 92 at 1600, with no insulin coverage. has trace edema of left foot. Addendum: 12/02/17 at 1836 by SUDHAKAR ETIENNE RN Amended: Links added.
--- NOTE | 2017-12-02 18:42 | NUR ---
20 meq of kcl given IV for k3.0 Addendum: 12/02/17 at 1842 by SUDHAKAR ETIENNE RN Amended: Links added. Addendum: 12/02/17 at 1843 by SUDHAKAR ETIENNE RN started at 1100
--- NOTE | 2017-12-02 19:10 | NUR ---
VALDO smith came and with the help of the day shift RN ,DERMATOLOGY PHYSICIAN ASSISTANT checked sacral wound decubitus . dressing changed done and turned and reposition patient . hob up . no respiratory distress on room air . tf in progress receiving Nepro and f/c to bsd ,rectal tube in placed .
--- NOTE | 2017-12-02 19:16 | NUR ---
report given to Johana. Addendum: 12/02/17 at 1916 by SUDHAKAR ETIENNE RN Amended: Links added.
--- NOTE | 2017-12-02 20:37 | NUR ---
patient alert ,awake x1 verbalized she is nauseous and her stomach is bothering her ,checked rectal tube in place with brownish liquid stool abdomen distended but soft with ecchymotic areas .will give Zofran .
--- NOTE | 2017-12-02 22:00 | NUR ---
WITH PEDIATRIC NP ,PM CARE DONE ,CHANGED SOILED LINENS AND GOWN ,SKIN CARE DONE .Z GUARD APPLIED TO SACRAL AREA ,TURNED AND REPOSITION . OFFLOADED BACK AND ELEVATED BUE AND BLE WITH PILLOWS HEELS OFF BED .
[2017-12-03] VITALS: BP 144/67
[2017-12-03] MEDS: VANCOMYCIN FOR PO/GT/NG USE PO SCH ×5 (00:26→23:44)
[2017-12-03] MEDS: BLOOD SUGAR DIAGNOSTIC 1 EACH STRIP VI SCH ×7 (00:31→23:48)
[2017-12-03] MEDS: INSULIN REGULAR, HUMAN 300 UNIT/3 ML VIAL SQ PRN ×7 (00:33→23:51)
[2017-12-03 04:00] VITALS: BP 145/62
[2017-12-03] MEDS: Z GUARD REMEDY PASTE 57 GM TUBE TOP PRN (05:41)
[2017-12-03 06:56] LABS: CARBON DIOXIDE 23 mmol/L (21-32); CREATININE 1.2 mg/dL (0.6-1.3); GLUCOSE 234 mg/dL (74-106); MAGNESIUM 2.2 mg/dL (1.8-2.4); PHOSPHOROUS 2.7 mg/dL (2.5-4.9); UREA NITROGEN, BLOOD 35 mg/dL (7-18); VANCOMYCIN,RANDOM 13.7 ug/mL (18.0-26.0)
[2017-12-03 07:12] LABS: CHLORIDE 124 mmol/L (98-107); POTASSIUM 3.2 mmol/L (3.5-5.1)
[2017-12-03] MEDS: ALBUTEROL SULFATE 2.5 MG/3 ML NEBU IH PRN ×3 (07:18→23:14)
[2017-12-03] MEDS: IPRATROPIUM BROMIDE 0.5 MG/2.5 ML NEBU NEB PRN ×3 (07:18→23:14)
--- NOTE | 2017-12-03 07:18 | NUR ---
PT CPT WAS DONE WITH TX AT THIS TIME NO DISTRESS NOTED PT WAS LEFT ON ROOM AIR. RN AWARE.
--- NOTE | 2017-12-03 08:00 | NUR ---
PATIENT IN BED AWAKE ALERT AND CONFUSED WITH NO SIGNS OF DISTRESS OR PAIN. SINUS RHYTHM ON MONITOR. NO SOB. TOLERATING GT FEEDING. NOTED WITH POTASSIUM LOW AWAITING HOSPITALIST TO REVIEW.
[2017-12-03 08:10] LABS: BASOPHILS % (AUTO) 0.3 % (0.0-2.0); EOSINOPHILS # (AUTO) 0.2 K/uL (0.0-0.7); EOSINOPHILS % (AUTO) 2.2 % (0.0-7.0); HEMATOCRIT 33.6 % (31.2-41.9); HEMOGLOBIN 10.6 g/dL (10.9-14.3); LYMPHOCYTES # (AUTO) 1.5 K/uL (20.0-40.0); LYMPHOCYTES % (AUTO) 14.7 % (20.5-51.5); MEAN CORPUSCULAR HEMOGLOBIN 29.9 uug (24.7-32.8); MEAN CORPUSCULAR HGB CONC 32 g/dL (32.3-35.6); MONOCYTES # (AUTO) 0.7 K/uL (2.0-10.0); MONOCYTES % (AUTO) 7.3 % (0.0-11.0); NEUTROPHILS # (AUTO) 7.7 K/uL (1.8-8.9); NEUTROPHILS % (AUTO) 75.5 % (38.5-71.5); PLATELET COUNT (AUTO) 242 K/uL (179-408); RED BLOOD CELL COUNT(AUTO) 3.53 MIL/uL (3.63-4.92); WHITE BLOOD COUNT (AUTO) 10.1 K/uL (3.8-11.8)
[2017-12-03] MEDS: ZINC SULFATE 220 MG CAPSULE GT SCH (08:29)
[2017-12-03] MEDS: LACTOBACILLUS RHAMNOSUS GG 1 EACH CAPSULE GT SCH ×2 (08:29→20:05)
[2017-12-03] MEDS: FAMOTIDINE 20 MG TABLET GT SCH (08:29)
[2017-12-03] MEDS ORDERED: VANCOMYCIN IV 1 G in PREMIXED 0 EACH IV ONE (08:30)
[2017-12-03] MEDS: METOPROLOL TARTRATE 25 MG TABLET GT SCH ×2 (08:31→17:26)
[2017-12-03] MEDS: ASCORBIC ACID 500 MG TABLET GT SCH ×2 (08:31→17:24)
[2017-12-03] MEDS: LEVOTHYROXINE SODIUM 75 MCG TABLET GT SCH (08:31)
[2017-12-03] MEDS: CYANOCOBALAMIN 1,000 MCG TABLET GT SCH (08:31)
[2017-12-03] MEDS: AMIODARONE HCL 200 MG TABLET GT SCH (08:31)
[2017-12-03] MEDS: MULTIVIT, IRON, MIN NO. 8, FA TABLET GT SCH (08:32)
[2017-12-03] MEDS: LORATADINE 10 MG TABLET GT SCH (08:32)
[2017-12-03] MEDS: PROTEIN SUPPLEMENT (PROSTAT) 30 ML LIQUID GT SCH ×3 (08:33→17:24)
[2017-12-03] MEDS: MEROPENEM 0.5 G in IV NORMAL SALINE 50 ML IV SCH (08:38)
[2017-12-03] MEDS: CLOPIDOGREL 75 MG TABLET GT SCH (08:52)
[2017-12-03] MEDS: IV D5/ 0.9% NACL 1,000 ML IV SCH (08:52)
[2017-12-03] MEDS ORDERED: POTASSIUM CHLORIDE 20 MEQ TAB.PRT.SR PO ONE (09:45)
[2017-12-03] MEDS ORDERED: IV D5W 1000ML 1,000 ML IV ONE (09:45)
[2017-12-03] MEDS: SODIUM HYPOCHLORITE 0.125% 473 ML BOTTLE TP SCH (11:05)
[2017-12-03] MEDS: NYSTATIN/TRIAMCINOLONE CREAM 15 GM TUBE TP SCH ×2 (11:05→20:06)
[2017-12-03 11:11] LABS: EOSINOPHILS % (MANUAL) 1 % (0-8); LYMPHOCYTES % (MANUAL) 19 % (20-40); METAMYELOCYTES % 7 % (0-1); MONOCYTES % (MANUAL) 8 % (2-10); MYELOCYTES % 6 % (0-0)
[2017-12-03 11:20] LABS: NEUTROPHILS % (MANUAL) 59 % (42-75)
[2017-12-03 11:40] VITALS: BP 142/77
--- NOTE | 2017-12-03 12:00 | NUR ---
SEEN BY SAFETY ENGINEER. REVIEWED LABS. WITH NEW ORDER OF IV FLUIDS AND 200CC FREE WATER FOR HYPERNATREMIA.
--- NOTE | 2017-12-03 14:06 | NUR ---
PATIENT HOB ELEVATED AT ALL TIMES. NO ADVERSE REACTIONS TO ANTIBIOTICS NOTED. PATIENT REMAINS STABLE. FREQUENT VISUAL CHECKS DONE.
--- NOTE | 2017-12-03 14:12 | NUR ---
Clinical pharmacy note-Vancomycin dosing per pharmacy S: To continue Vancomycin dosing on this patient for pneumonia O:BUN 35 Scr 1.2 WBC 10.4(12/02) Temp 98.2 Random: today with am labs 13.7 A/P: Since renal function is still unstable, will continue to dose by fall off random level for now. Vancomycin 1 gram was given today at 0830. Next random due tomorrow with am labs. Will check and re-dose as needed. Will follow.
[2017-12-03 15:12] LABS: CARBON DIOXIDE 23 mmol/L (21-32); CHLORIDE 121 mmol/L (98-107); CREATININE 1.3 mg/dL (0.6-1.3); GLUCOSE 213 mg/dL (74-106); POTASSIUM 3.6 mmol/L (3.5-5.1); UREA NITROGEN, BLOOD 33 mg/dL (7-18)
[2017-12-03 15:30] VITALS: BP 126/74
--- NOTE | 2017-12-03 16:00 | NUR ---
PT CPT WAS DONE WITH TX AT THIS TIME NO DISTRESS NOTED PT WAS LEFT ON ROOM AIR. RN AWARE.
--- NOTE | 2017-12-03 17:01 | NUR ---
SEEN BY DOCTOR. MD AWARE OF YEAST IN URINE AND WOUND. SEE NOTES, RECOMMENDATION TO CONTINUE CURRENT IV ATB
[2017-12-03 19:00] VITALS: BP 126/60
--- NOTE | 2017-12-03 19:30 | NUR ---
Resting comfortably in bed. Awake, confused, verbally responsive. IVF infusing well, GTube feeding well tolerated. Resp easy and regular, on room air. In no apparent acute distress. Maintained on contact isolation. DPOA called in for update, appreciative of care and information. Fall, safety and aspiration precautions observed at all times. Nursing comfort measures maintained.
[2017-12-03] MEDS: MEROPENEM 1 G in IV NORMAL SALINE 100 ML IV SCH (20:05)
[2017-12-04] VITALS: BP 137/61
--- NOTE | 2017-12-04 | NUR ---
Receive pt lying in bed asleep. In no acute distress. GT feeding running. IVF infusing. NSR on tele at 100/min.
[2017-12-04] MEDS: BLOOD SUGAR DIAGNOSTIC 1 EACH STRIP VI SCH ×4 (03:33→15:49)
[2017-12-04] MEDS: INSULIN REGULAR, HUMAN 300 UNIT/3 ML VIAL SQ PRN ×4 (03:34→15:47)
[2017-12-04 04:00] VITALS: BP 130/62
[2017-12-04] MEDS: VANCOMYCIN FOR PO/GT/NG USE PO SCH ×2 (05:30→12:30)
--- NOTE | 2017-12-04 06:13 | NUR ---
Patient slept well last night. Arouse to verbal and tactile stimuli. In no acute distress. O2 sat at 96%. GT feeding and flushing well tolerated. NSR on tele at 95/min. Rectal tube intact. FC intact and draining via gravity. Safety measure maintained.
[2017-12-04 07:03] LABS: BASOPHILS % (AUTO) 0.4 % (0.0-2.0); EOSINOPHILS # (AUTO) 0.8 K/uL (0.0-0.7); HEMATOCRIT 31.1 % (31.2-41.9); LYMPHOCYTES # (AUTO) 1.2 K/uL (20.0-40.0); LYMPHOCYTES % (AUTO) 11.3 % (20.5-51.5); MEAN CORPUSCULAR HEMOGLOBIN 29.9 uug (24.7-32.8); MEAN CORPUSCULAR HGB CONC 32 g/dL (32.3-35.6); MEAN CORPUSCULAR VOLUME 93.3 fL (75.5-95.3); MONOCYTES # (AUTO) 0.6 K/uL (2.0-10.0); MONOCYTES % (AUTO) 5.9 % (0.0-11.0); NEUTROPHILS # (AUTO) 7.7 K/uL (1.8-8.9); NEUTROPHILS % (AUTO) 74.4 % (38.5-71.5); PLATELET COUNT (AUTO) 225 K/uL (179-408); RED BLOOD CELL COUNT(AUTO) 3.34 MIL/uL (3.63-4.92); WHITE BLOOD COUNT (AUTO) 10.3 K/uL (3.8-11.8)
[2017-12-04 07:15] LABS: CARBON DIOXIDE 25 mmol/L (21-32); CHLORIDE 117 mmol/L (98-107); CREATININE 1.3 mg/dL (0.6-1.3); GLUCOSE 278 mg/dL (74-106); MAGNESIUM 2.1 mg/dL (1.8-2.4); PHOSPHOROUS 2.4 mg/dL (2.5-4.9); POTASSIUM 3.6 mmol/L (3.5-5.1); UREA NITROGEN, BLOOD 32 mg/dL (7-18)
--- NOTE | 2017-12-04 07:46 | NUR ---
WOUND CARE CONSULT WOUND CARE RECEIVED CONSULT FOR SACRAL WOUND, ABDOMINAL ABRASION AND SEVERE BRUISES. WOUND CARE WILL DEFER CONSULT AND ALL TREATMENT PLANS TO SURGICAL TEAM AT THIS TIME THEY ARE FOLLOWING. PATIENT WITH ILAN AT 11, ALL PRESSURE ULCER PREVENTION MEASURES NOTED TO BE IN PLACE AT THIS TIME. WILL SEE PRN.
[2017-12-04] MEDS: ALBUTEROL SULFATE 2.5 MG/3 ML NEBU IH PRN ×2 (08:07→12:08)
[2017-12-04] MEDS: IPRATROPIUM BROMIDE 0.5 MG/2.5 ML NEBU NEB PRN ×2 (08:07→12:08)
[2017-12-04] MEDS ORDERED: NORMAL SALINE FLUSH 10 ML DISP.SYRIN IV PRN (08:15)
[2017-12-04] MEDS: AMIODARONE HCL 200 MG TABLET GT SCH (08:23)
[2017-12-04] MEDS: ZINC SULFATE 220 MG CAPSULE GT SCH (08:23)
[2017-12-04] MEDS: ASCORBIC ACID 500 MG TABLET GT SCH ×2 (08:23→15:44)
[2017-12-04] MEDS: LACTOBACILLUS RHAMNOSUS GG 1 EACH CAPSULE GT SCH (08:23)
[2017-12-04] MEDS: MULTIVIT, IRON, MIN NO. 8, FA TABLET GT SCH (08:23)
[2017-12-04] MEDS: CYANOCOBALAMIN 1,000 MCG TABLET GT SCH (08:23)
[2017-12-04] MEDS: LORATADINE 10 MG TABLET GT SCH (08:23)
[2017-12-04] MEDS: METOPROLOL TARTRATE 25 MG TABLET GT SCH ×2 (08:26→15:43)
[2017-12-04] MEDS: FAMOTIDINE 20 MG TABLET GT SCH (08:28)
[2017-12-04] MEDS: CLOPIDOGREL 75 MG TABLET GT SCH (08:28)
[2017-12-04] MEDS: PROTEIN SUPPLEMENT (PROSTAT) 30 ML LIQUID GT SCH ×3 (08:30→15:44)
[2017-12-04] MEDS: LEVOTHYROXINE SODIUM 75 MCG TABLET GT SCH (08:32)
[2017-12-04] MEDS: Z GUARD REMEDY PASTE 57 GM TUBE TOP PRN (08:33)
[2017-12-04] MEDS: MEROPENEM 1 G in IV NORMAL SALINE 100 ML IV SCH (08:34)
[2017-12-04] MEDS: NYSTATIN/TRIAMCINOLONE CREAM 15 GM TUBE TP SCH (08:35)
[2017-12-04] MEDS: SODIUM HYPOCHLORITE 0.125% 473 ML BOTTLE TP SCH (08:35)
[2017-12-04] MEDS ORDERED: MERO1VIA IV (09:25)
[2017-12-04] MEDS ORDERED: VANC500V PO (09:25)
[2017-12-04 09:59] LABS: NEUTROPHILS % (MANUAL) 75 % (42-75)
[2017-12-04 10:00] LABS: BAND % (MANUAL) 0 % (0-10); EOSINOPHILS % (MANUAL) 6 % (0-8); LYMPHOCYTES % (MANUAL) 11 % (20-40)
[2017-12-04 10:03] LABS: MONOCYTES % (MANUAL) 6 % (2-10); MYELOCYTES % 2 % (0-0)
[2017-12-04 11:12] VITALS: BP 143/69
[2017-12-04] MEDS ORDERED: NORMAL SALINE FLUSH 10 ML DISP.SYRIN IV SCH (14:00)
[2017-12-04 14:58] VITALS: BP 145/62
[2017-12-04] MEDS ORDERED: NEUTRA PHOS PACKET PO ONE (15:15)
[2017-12-04 15:43] VITALS: BP 145/62
--- NOTE | 2017-12-04 17:30 | NUR ---
[facility] Pt [facility] up by ambulance report given to EMT as well. No leak noted on rectal tube. F/c draining clear yellow urine. Midline on right brachial flushed with NS patent. Updated pix of wounds and bruising done. Measured sacral wound with 2cm x 2cmx 2cm deep. Dressing changed on sacral wound with dakins soln and then covered with mepilex as ordered. Pt is in no acute distress upon d/c. Coco nurse outreach case manager ok to to go back to [facility].
== END 2017-12-04 15:45 | DRG 871 ==
LOC: ER 17:29 → CCU 22:58 → TELE 12-02 18:00 → MED 12-04 11:25
PROVIDERS: ADMIT Internal Medicine; ATTEND Internal Medicine
PROC: 05H533Z Insertion of Infusion Device into Right Subclavian Vein, Percutaneous Approach (ICD-10-PCS; principal; 2017-11-30)
DX: A41.9 Sepsis, unspecified organism (principal); L89.154 Pressure ulcer of sacral region, stage 4; J69.0 Pneumonitis due to inhalation of food and vomit; J96.01 Acute respiratory failure with hypoxia; R53.2 Functional quadriplegia; E43 Unspecified severe protein-calorie malnutrition; N17.0 Acute kidney failure with tubular necrosis; B37.49 Other urogenital candidiasis; I69.354 Hemiplegia and hemiparesis following cerebral infarction affecting left non-dominant side; I13.0 Hypertensive heart and chronic kidney disease with heart failure and stage 1 through stage 4 chronic kidney disease, or unspecified chronic kidney disease; E87.0 Hyperosmolality and hypernatremia; M46.28 Osteomyelitis of vertebra, sacral and sacrococcygeal region; R65.20 Severe sepsis without septic shock; E03.9 Hypothyroidism, unspecified; E11.40 Type 2 diabetes mellitus with diabetic neuropathy, unspecified; Z79.4 Long term (current) use of insulin; E11.65 Type 2 diabetes mellitus with hyperglycemia; D63.8 Anemia in other chronic diseases classified elsewhere; E11.22 Type 2 diabetes mellitus with diabetic chronic kidney disease; N18.9 Chronic kidney disease, unspecified; I50.9 Heart failure, unspecified; F03.90 Unspecified dementia, unspecified severity, without behavioral disturbance, psychotic disturbance, mood disturbance, and anxiety; K21.9 Gastro-esophageal reflux disease without esophagitis; Z68.27 Body mass index [BMI] 27.0-27.9, adult; R13.10 Dysphagia, unspecified; Z86.19 Personal history of other infectious and parasitic diseases; E87.6 Hypokalemia; E78.5 Hyperlipidemia, unspecified; E11.36 Type 2 diabetes mellitus with diabetic cataract; R32 Unspecified urinary incontinence; Z88.0 Allergy status to penicillin; Z93.1 Gastrostomy status; Z87.440 Personal history of urinary (tract) infections; Z87.01 Personal history of pneumonia (recurrent); E11.69 Type 2 diabetes mellitus with other specified complication; I71.4 Abdominal aortic aneurysm, without rupture; M81.0 Age-related osteoporosis without current pathological fracture; N20.0 Calculus of kidney; Z79.899 Other long term (current) drug therapy; Z86.011 Personal history of benign neoplasm of the brain; R19.7 Diarrhea, unspecified; D50.0 Iron deficiency anemia secondary to blood loss (chronic)
CPT/HCPCS: 36415; 36569; 36600; 70030-TC; 71045; 76770; 83605; 83735; 83970; 84100; 84156; 84300; 85025; 85610; 87040; 87070; 87086; 93005; 94640; A4217; A4663; J1650; J1815; J1956; J2185; J2270; J2405; J2930; J3370; J3480; J3490; J3590; J7030; J7042; J7050; J7070

== ENCOUNTER 2017-12-26 14:19 | Inpatient (IN) | payer MEDICARE, MEDICAID ==
[~2017-12-26] VITALS: Ht 170.2 cm; Wt 64.4 kg
[~2017-12-26 14:19] MED LIST changes: +ACET325T53 GT; -ACID1TAB12 GT; +ALBU2.5V38 IH; -ALBU2.5V38 NEB; -AMIN30LI2 PO; +AMIN30LI24 GT; -AMIO200T2 GT; +AMIO200T4 GT; -AMIO200T6 GT; +BLOO-140 IN; -CLOT30CR24 TOP; -DUL RC; -GABA-534 GT; +GEL100GE MC; +HEPA50008 IJ; +IPRA0.2S6 NEB; +L. R1CAP3 GT; -LORA-258 GT; +MERO1VIA IV; -MESA10002 RC; -MESA250C2 PO; +MUPI22OI2; +NYST15CR2 TP; -OXYC-128 PO; -POLY17PO3 PO; -PRIM50TA GT; +SODI473S8 MC; -SODI473S8 TP; -VANC500V GT; +VANC500V PO; +ZINC220C8 GT; -ZINC500P16 MC; +ZINC57OI4 TP; +[UNRECOGNIZED DRUG - CODE] GT; -[UNRECOGNIZED DRUG - CODE] PO; -humalog SQ
[2017-12-26] MEDS ORDERED: IV NORMAL SALINE 1000 ML BAG IV ONE (14:45)
[2017-12-26 15:32] LABS: ALANINE AMINOTRANSFERASE 40 U/L (14-59); ALKALINE PHOSPHATASE 124 U/L (50-136); ASPARTATE AMINOTRANSFERASE 25 U/L (15-37); BILIRUBIN,DIRECT 0.1 mg/dL (0.0-0.2); BILIRUBIN,TOTAL 0.4 mg/dL (0.2-1.0); CARBON DIOXIDE 21 mmol/L (21-32); CHLORIDE 94 mmol/L (98-107); CREATININE 6.7 mg/dL (0.6-1.3); GLUCOSE 138 mg/dL (74-106); TOTAL PROTEIN, SERUM 7.8 g/dL (6.4-8.2)
[2017-12-26 15:38] LABS: POTASSIUM 8.2 mmol/L (3.5-5.1); UREA NITROGEN, BLOOD 193 mg/dL (7-18)
[2017-12-26] MEDS ORDERED: VANCOMYCIN IV 1,000 MG in IV DEXTROSE 5% 250 ML IV ONE (15:45)
[2017-12-26] MEDS ORDERED: INSULIN REGULAR, HUMAN 1,000 UNITS/10 ML VIAL IV ONE (15:45)
[2017-12-26] MEDS ORDERED: SODIUM BICARBONATE 8.4% 50 MEQ/50 ML DISP.SYRIN IV ONE ×2 (15:45→15:51)
[2017-12-26] MEDS ORDERED: MEROPENEM 500 MG in IV NORMAL SALINE 100 ML IV ONE (15:45)
[2017-12-26] MEDS ORDERED: DEXTROSE 50% 50 ML DISP.SYRIN IV ONE (15:45)
[2017-12-26] MEDS ORDERED: ALBUTEROL SULFATE 2.5 MG/3 ML NEBU NEB ONE (15:45)
[2017-12-26] MEDS ORDERED: SODIUM POLYSTYRENE SULFONATE 15 G/60 ML LIQUID UDC PO ONE (15:45)
[2017-12-26] MEDS ORDERED: CALCIUM GLUCONATE IV 1 GM in IV DEXTROSE 5% 50 ML IV ONE (15:45)
[2017-12-26] MEDS ORDERED: CALCIUM GLUCONATE 1 GM/10 ML VIAL IV ONE (15:45)
[2017-12-26] MEDS ORDERED: ALBUTEROL SULFATE 2.5 MG/3 ML NEBU ONE (15:49)
[2017-12-26] MEDS ORDERED: CALCIUM CHLORIDE 1 GM/10 ML DISP.SYRIN IVP ONE ×2 (15:58→16:00)
[2017-12-26] MEDS ORDERED: DEXTROSE 50% 50 ML DISP.SYRIN ONE (16:13)
[2017-12-26] MEDS ORDERED: INSULIN REGULAR, HUMAN 300 UNIT/3 ML VIAL ONE (16:14)
[2017-12-26 16:21] LABS: BASOPHILS % (AUTO) 0.3 % (0.0-2.0); EOSINOPHILS % (AUTO) 0.1 % (0.0-7.0); HEMATOCRIT 30.7 % (31.2-41.9); HEMOGLOBIN 9.8 g/dL (10.9-14.3); LYMPHOCYTES # (AUTO) 0.3 K/uL (20.0-40.0); LYMPHOCYTES % (AUTO) 2.3 % (20.5-51.5); MEAN CORPUSCULAR HEMOGLOBIN 28.4 uug (24.7-32.8); MEAN CORPUSCULAR HGB CONC 32 g/dL (32.3-35.6); MONOCYTES # (AUTO) 0.8 K/uL (2.0-10.0); MONOCYTES % (AUTO) 5.9 % (0.0-11.0); NEUTROPHILS # (AUTO) 12.3 K/uL (1.8-8.9); NEUTROPHILS % (AUTO) 91.4 % (38.5-71.5); PLATELET COUNT (AUTO) 281 K/uL (179-408); RED BLOOD CELL COUNT(AUTO) 3.45 MIL/uL (3.63-4.92); WHITE BLOOD COUNT (AUTO) 13.5 K/uL (3.8-11.8)
[2017-12-26] MEDS ORDERED: NYST15OI TP (16:36)
[2017-12-26] MEDS ORDERED: ROSU20TA GT (16:36)
[2017-12-26 16:45] LABS: BAND % (MANUAL) 6 % (0-10); NEUTROPHILS % (MANUAL) 88 % (42-75)
[2017-12-26 16:46] LABS: LYMPHOCYTES % (MANUAL) 2 % (20-40); MONOCYTES % (MANUAL) 4 % (2-10)
[2017-12-26] MEDS ORDERED: VANCOMYCIN 1000 MG VIAL ONE (17:02)
[2017-12-26] MEDS ORDERED: MEROPENEM 500 MG VIAL IV ONE (17:02)
[2017-12-26] MEDS ORDERED: SODIUM POLYSTYRENE SULFONATE ENEMA 30 G/120 ML BOTTLE RC ONE (17:04)
[2017-12-26] MEDS ORDERED: VANCOMYCIN IV 200 ML ONE (17:06)
[2017-12-26] MEDS: HEPARIN SODIUM,PORCINE 10,000 UNITS/10 ML VIAL IVP ONE ×2 (18:41→18:42)
[2017-12-26 19:37] VITALS: BP 182/91
[2017-12-26] MEDS ORDERED: HYDROCODONE/APAP 5-325MG TABLET PO PRN (19:45)
[2017-12-26] MEDS ORDERED: MAGNESIUM HYDROXIDE 30 ML LIQUID UDC PO PRN (19:45)
[2017-12-26 20:00] VITALS: BP 193/96
[2017-12-26] MEDS ORDERED: MEROPENEM 500 MG in IV NORMAL SALINE 50 ML IV SCH (20:00)
[2017-12-26] MEDS ORDERED: LEVOFLOXACIN 500 MG/D5W 100 ML IV SCH (20:00)
[2017-12-26] MEDS ORDERED: IPRATROPIUM BROMIDE 0.5 MG/2.5 ML NEBU NEB SCH (20:15)
[2017-12-26] MEDS ORDERED: OXYCODONE/APAP 5-325 MG TABLET GT PRN ×2 (20:15→23:14)
[2017-12-26] MEDS ORDERED: ENOXAPARIN SODIUM 30 MG/0.3 ML DISP.SYRIN SUBCUT SCH (20:15)
[2017-12-26] MEDS ORDERED: DEXTROSE 50% 50 ML DISP.SYRIN IV PRN (20:30)
[2017-12-26] MEDS ORDERED: NITROGLYCERIN OINT 1 GM PACKET TP PRN (20:30)
[2017-12-26 21:00] VITALS: BP 132/76
[2017-12-26] MEDS ORDERED: HEPARIN SODIUM,PORCINE 10,000 UNITS/10 ML VIAL INJ SCH (21:00)
[2017-12-26] MEDS: MEROPENEM 500 MG in IV NORMAL SALINE 50 ML IV SCH (21:00)
[2017-12-26] MEDS: NYSTATIN/TRIAMCINOLONE CREAM 15 GM TUBE TP SCH (21:00)
[2017-12-26] MEDS ORDERED: Medication Not On Formulary EA (Rosuvastatin Calcium (Crestor) 20 MG) GT SCH (21:00)
[2017-12-26] MEDS ORDERED: NYSTATIN OINTMENT 15 GM TUBE TP SCH (21:00)
[2017-12-26] MEDS: SODIUM BICARBONATE 8.4% 100 MEQ in IV D5 1/2 NS 1000 ML 1,000 ML IV PRN (21:49)
[2017-12-26] MEDS: MORPHINE SULFATE 2 MG/1 ML DISP.SYRIN IV PRN (21:54)
[2017-12-26 22:00] VITALS: BP 150/59
[2017-12-26] MEDS: METOPROLOL TARTRATE 25 MG TABLET GT SCH (22:01)
[2017-12-26] MEDS: ATORVASTATIN 40 MG TABLET GT SCH (22:01)
[2017-12-26] MEDS: HEPARIN SODIUM,PORCINE 5,000 UNITS/ML VIAL SQ SCH (22:53)
[2017-12-26 23:00] VITALS: BP 148/72
[2017-12-26] MEDS: IPRATROPIUM BROMIDE 0.5 MG/2.5 ML NEBU NEB SCH (23:26)
[2017-12-26] MEDS: Z GUARD REMEDY PASTE 57 GM TUBE TOP PRN (23:43)
[2017-12-26] MEDS: BLOOD SUGAR DIAGNOSTIC 1 EACH STRIP VI SCH (23:45)
[2017-12-26] MEDS: INSULIN REGULAR, HUMAN 300 UNIT/3 ML VIAL SQ PRN (23:46)
[2017-12-27] VITALS (25 sets, daily range): BP systolic 98–158; BP diastolic 46–93
[2017-12-27 00:18] LABS: CARBON DIOXIDE 23 mmol/L (21-32); CHLORIDE 94 mmol/L (98-107); CREATININE 4.8 mg/dL (0.6-1.3); GLUCOSE 278 mg/dL (74-106); POTASSIUM 5.4 mmol/L (3.5-5.1)
[2017-12-27 00:27] LABS: UREA NITROGEN, BLOOD 119 mg/dL (7-18)
[2017-12-27] MEDS: IPRATROPIUM BROMIDE 0.5 MG/2.5 ML NEBU NEB SCH ×6 (02:31→23:59)
[2017-12-27 04:45] LABS: BASOPHILS # (AUTO) 0.1 K/uL (0.0-8.0); BASOPHILS % (AUTO) 0.4 % (0.0-2.0); EOSINOPHILS % (AUTO) 0.1 % (0.0-7.0); HEMATOCRIT 26.7 % (31.2-41.9); HEMOGLOBIN 8.6 g/dL (10.9-14.3); LYMPHOCYTES # (AUTO) 0.6 K/uL (20.0-40.0); MEAN CORPUSCULAR HEMOGLOBIN 28.2 uug (24.7-32.8); MEAN CORPUSCULAR HGB CONC 32 g/dL (32.3-35.6); MONOCYTES # (AUTO) 1.1 K/uL (2.0-10.0); MONOCYTES % (AUTO) 7.2 % (0.0-11.0); NEUTROPHILS # (AUTO) 13.9 K/uL (1.8-8.9); NEUTROPHILS % (AUTO) 88.3 % (38.5-71.5); PLATELET COUNT (AUTO) 230 K/uL (179-408); RED BLOOD CELL COUNT(AUTO) 3.04 MIL/uL (3.63-4.92); WHITE BLOOD COUNT (AUTO) 15.8 K/uL (3.8-11.8)
[2017-12-27 05:10] LABS: CARBON DIOXIDE 27 mmol/L (21-32); CHLORIDE 96 mmol/L (98-107); CHOLESTEROL 179 mg/dL (<200); CREATININE 5.2 mg/dL (0.6-1.3); FERRITIN 293 ng/mL (8-252); GLUCOSE 184 mg/dL (74-106); HDL CHOLESTEROL 16 mg/dL (40-60); MAGNESIUM 3.2 mg/dL (1.8-2.4); POTASSIUM 5.5 mmol/L (3.5-5.1); TRIGLYCERIDES 409 MG/DL (30-150)
[2017-12-27 05:50] LABS: UREA NITROGEN, BLOOD 127 mg/dL (7-18)
[2017-12-27] MEDS: LEVOTHYROXINE SODIUM 75 MCG TABLET GT SCH (06:14)
[2017-12-27] MEDS: BLOOD SUGAR DIAGNOSTIC 1 EACH STRIP VI SCH ×4 (06:16→23:45)
[2017-12-27] MEDS: INSULIN REGULAR, HUMAN 300 UNIT/3 ML VIAL SQ PRN (06:19)
[2017-12-27 07:15] LABS: IRON, SERUM 10 ug/dL (50-175)
[2017-12-27] MEDS: ALBUTEROL SULFATE 2.5 MG/3 ML NEBU IH PRN ×3 (08:04→19:53)
[2017-12-27] MEDS ORDERED: AMIODARONE HCL 200 MG TABLET GT SCH (09:00)
[2017-12-27] MEDS ORDERED: FAMOTIDINE 20 MG TABLET GT SCH (09:00)
[2017-12-27] MEDS: CYANOCOBALAMIN 1,000 MCG TABLET GT SCH (10:04)
[2017-12-27] MEDS: ZINC SULFATE 220 MG CAPSULE GT SCH (10:05)
[2017-12-27] MEDS: ASCORBIC ACID 500 MG TABLET GT SCH ×2 (10:05→17:49)
[2017-12-27] MEDS: CLOPIDOGREL 75 MG TABLET GT SCH (10:06)
[2017-12-27] MEDS: METOPROLOL TARTRATE 25 MG TABLET GT SCH ×2 (10:06→21:30)
[2017-12-27] MEDS: HEPARIN SODIUM,PORCINE 5,000 UNITS/ML VIAL SQ SCH ×2 (10:10→21:04)
[2017-12-27] MEDS: NYSTATIN/TRIAMCINOLONE CREAM 15 GM TUBE TP SCH ×2 (10:12→21:05)
[2017-12-27] MEDS: ONDANSETRON 4 MG/2 ML VIAL IV PRN ×4 (11:38→23:42)
[2017-12-27] MEDS: SODIUM BICARBONATE 8.4% 100 MEQ in IV D5 1/2 NS 1000 ML 1,000 ML IV PRN (16:11)
[2017-12-27] MEDS ORDERED: IV NORMAL SALINE 500 ML IV ONE (17:00)
[2017-12-27 20:17] LABS: *OCCULT BLOOD STOOL POSITIVE (NEGATIVE)
[2017-12-27] MEDS: ATORVASTATIN 40 MG TABLET GT SCH (21:01)
[2017-12-27] MEDS: MEROPENEM 500 MG in IV NORMAL SALINE 50 ML IV SCH (21:30)
[2017-12-27] MEDS: METRONIDAZOLE 500 MG/NS 100ML 500 MG in PREMIXED 1 EACH IV SCH (21:31)
[2017-12-27] MEDS: VANCOMYCIN FOR PO/GT/NG USE PO SCH (23:28)
[2017-12-28] VITALS (18 sets, daily range): BP systolic 97–137; BP diastolic 49–79
[2017-12-28] MEDS: ALBUTEROL SULFATE 2.5 MG/3 ML NEBU IH PRN ×4 (04:11→20:50)
[2017-12-28] MEDS: IPRATROPIUM BROMIDE 0.5 MG/2.5 ML NEBU NEB SCH ×5 (04:11→20:50)
[2017-12-28 05:12] LABS: BASOPHILS % (AUTO) 0.2 % (0.0-2.0); EOSINOPHILS # (AUTO) 0.1 K/uL (0.0-0.7); EOSINOPHILS % (AUTO) 0.9 % (0.0-7.0); HEMATOCRIT 25.5 % (31.2-41.9); HEMOGLOBIN 8.1 g/dL (10.9-14.3); LYMPHOCYTES # (AUTO) 0.9 K/uL (20.0-40.0); LYMPHOCYTES % (AUTO) 7.8 % (20.5-51.5); MEAN CORPUSCULAR HEMOGLOBIN 27.8 uug (24.7-32.8); MEAN CORPUSCULAR HGB CONC 32 g/dL (32.3-35.6); MEAN CORPUSCULAR VOLUME 87.9 fL (75.5-95.3); MONOCYTES # (AUTO) 1.1 K/uL (2.0-10.0); MONOCYTES % (AUTO) 10.1 % (0.0-11.0); PLATELET COUNT (AUTO) 206 K/uL (179-408); WHITE BLOOD COUNT (AUTO) 11.2 K/uL (3.8-11.8)
[2017-12-28 05:23] LABS: CARBON DIOXIDE 31 mmol/L (21-32); CHLORIDE 97 mmol/L (98-107); CREATININE 3.5 mg/dL (0.6-1.3); GLUCOSE 93 mg/dL (74-106); MAGNESIUM 2.3 mg/dL (1.8-2.4); PHOSPHOROUS 5.1 mg/dL (2.5-4.9); POTASSIUM 4.7 mmol/L (3.5-5.1); UREA NITROGEN, BLOOD 59 mg/dL (7-18)
[2017-12-28] MEDS: VANCOMYCIN FOR PO/GT/NG USE PO SCH ×3 (05:40→17:29)
[2017-12-28] MEDS: BLOOD SUGAR DIAGNOSTIC 1 EACH STRIP VI SCH ×3 (05:49→17:35)
[2017-12-28] MEDS: METRONIDAZOLE 500 MG/NS 100ML 500 MG in PREMIXED 1 EACH IV SCH ×3 (05:50→22:31)
[2017-12-28] MEDS: LEVOTHYROXINE SODIUM 75 MCG TABLET GT SCH (06:04)
[2017-12-28] MEDS: PANTOPRAZOLE SODIUM 40 MG VIAL IV SCH (06:05)
[2017-12-28] MEDS: AMIODARONE HCL IV 900 MG in IV DEXTROSE 5% 482 ML IV PRN (07:07)
[2017-12-28 08:17] LABS: ABG BASE EXCESS 1.4 mmol/L; ABG HCO3 25.9 mmol/L; ABG PCO2 40.8 mmHg (35.0-45.0); ABG PH 7.421 (7.350-7.450); ABG PO2 96.1 mmHg (75.0-100.0); ABG SITE RIGHT RADIAL; ABG TOTAL HEMOGLOBIN 11.8 G/dL (12.0-16.0); COHb 1.5 % (0.5-1.5); O2Hb 95.2 % (94.0-97.0); VENT MODE Nasal Cannula
[2017-12-28] MEDS: METOPROLOL TARTRATE 25 MG TABLET GT SCH ×2 (08:48→20:30)
[2017-12-28] MEDS: CYANOCOBALAMIN 1,000 MCG TABLET GT SCH (08:48)
[2017-12-28] MEDS: CLOPIDOGREL 75 MG TABLET GT SCH (08:48)
[2017-12-28] MEDS: ASCORBIC ACID 500 MG TABLET GT SCH ×2 (08:49→17:29)
[2017-12-28] MEDS: ZINC SULFATE 220 MG CAPSULE GT SCH (08:49)
[2017-12-28] MEDS: HEPARIN SODIUM,PORCINE 5,000 UNITS/ML VIAL SQ SCH ×2 (08:53→20:41)
[2017-12-28] MEDS ORDERED: AMIODARONE HCL 200 MG TABLET GT SCH (09:00)
[2017-12-28] MEDS: NYSTATIN/TRIAMCINOLONE CREAM 15 GM TUBE TP SCH ×2 (12:03→20:31)
[2017-12-28] MEDS: AZTREONAM 0.5 G in IV NORMAL SALINE 50 ML IV SCH ×2 (12:03→20:30)
[2017-12-28] MEDS: IV D5/ 0.9% NACL 1,000 ML IV PRN (13:44)
[2017-12-28] MEDS ORDERED: LEVOFLOXACIN 500 MG/D5W 100 ML IV SCH (20:00)
[2017-12-28] MEDS: Z GUARD REMEDY PASTE 57 GM TUBE TOP PRN (20:27)
[2017-12-28] MEDS: METOCLOPRAMIDE HCL 10 MG/2 ML VIAL IV SCH (20:29)
[2017-12-28] MEDS: ATORVASTATIN 40 MG TABLET GT SCH (20:29)
[2017-12-28] MEDS: MUPIROCIN 2% OINT 22 GM TUBE NS SCH (20:30)
[2017-12-28] MEDS: MEROPENEM 500 MG in IV NORMAL SALINE 50 ML IV SCH (21:13)
[2017-12-28] MEDS ORDERED: METOCLOPRAMIDE HCL 10 MG/2 ML VIAL IV SCH (22:00)
[2017-12-28 22:43] LABS: *BILIRUBIN,URIN NEGATIVE (NEGATIVE); *BLOOD, URINE 2+ (NEGATIVE); *CLARITY,URINE TURBID (CLEAR); *COLOR,URINE YELLOW (YELLOW); *KETONES,URINE NEGATIVE (NEGATIVE); *PROTEIN,URINE 3+ (NEGATIVE); *UROBILINOGEN,URINE 0.2 E.U./dl (NORMAL); LEUKOCYTE ESTERASE ,URINE 3+ (NEGATIVE); NITRITE, URINE NEGATIVE (NEGATIVE); PH,URINE 8.5 (5.0-8.0); UGLUCOSE TRACE (NEGATIVE)
[2017-12-28 23:01] LABS: SQUAMOUS EPITHELIAL CELL,UR FEW /HPF (NONE SEEN); WBC,URINE 80-100 /HPF (0-3); YEAST,URINE MODERATE /HPF (NONE SEEN)
[2017-12-28 23:02] LABS: CALCIUM OXALATE CRYSTALS,UR MANY /HPF (NONE SEEN); TRIPLE PHOSPHATE CRYSTAL,UR MODERATE /HPF (NONE SEEN)
[2017-12-28 23:05] LABS: BACTERIA,URINE MODERATE /HPF (NONE SEEN)
[2017-12-29] VITALS (43 sets, daily range): BP systolic 104–178; BP diastolic 48–90
[2017-12-29] MEDS: ALBUTEROL SULFATE 2.5 MG/3 ML NEBU IH PRN ×6 (00:11→23:17)
[2017-12-29] MEDS: IPRATROPIUM BROMIDE 0.5 MG/2.5 ML NEBU NEB SCH ×7 (00:11→23:17)
[2017-12-29] MEDS: BLOOD SUGAR DIAGNOSTIC 1 EACH STRIP VI SCH ×4 (00:17→18:03)
[2017-12-29] MEDS: VANCOMYCIN FOR PO/GT/NG USE PO SCH ×4 (00:17→18:00)
[2017-12-29 05:36] LABS: BASOPHILS % (AUTO) 0.2 % (0.0-2.0); EOSINOPHILS # (AUTO) 0.2 K/uL (0.0-0.7); EOSINOPHILS % (AUTO) 1.5 % (0.0-7.0); HEMATOCRIT 24.2 % (31.2-41.9); LYMPHOCYTES # (AUTO) 0.6 K/uL (20.0-40.0); MEAN CORPUSCULAR HEMOGLOBIN 29.1 uug (24.7-32.8); MEAN CORPUSCULAR HGB CONC 33 g/dL (32.3-35.6); MEAN CORPUSCULAR VOLUME 87.6 fL (75.5-95.3); MONOCYTES # (AUTO) 0.6 K/uL (2.0-10.0); MONOCYTES % (AUTO) 5.4 % (0.0-11.0); NEUTROPHILS # (AUTO) 9.7 K/uL (1.8-8.9); NEUTROPHILS % (AUTO) 87.9 % (38.5-71.5); PLATELET COUNT (AUTO) 198 K/uL (179-408); RED BLOOD CELL COUNT(AUTO) 2.76 MIL/uL (3.63-4.92)
[2017-12-29] MEDS: METRONIDAZOLE 500 MG/NS 100ML 500 MG in PREMIXED 1 EACH IV SCH ×3 (05:42→22:33)
[2017-12-29 05:44] LABS: ALANINE AMINOTRANSFERASE 30 U/L (14-59); ALKALINE PHOSPHATASE 102 U/L (50-136); ASPARTATE AMINOTRANSFERASE 18 U/L (15-37); BILIRUBIN,TOTAL 0.4 mg/dL (0.2-1.0); CARBON DIOXIDE 25 mmol/L (21-32); CHLORIDE 95 mmol/L (98-107); CREATININE 4.4 mg/dL (0.6-1.3); GLUCOSE 138 mg/dL (74-106); MAGNESIUM 2.2 mg/dL (1.8-2.4); PHOSPHOROUS 6.9 mg/dL (2.5-4.9); POTASSIUM 4.7 mmol/L (3.5-5.1); TOTAL PROTEIN, SERUM 6.2 g/dL (6.4-8.2); UREA NITROGEN, BLOOD 65 mg/dL (7-18)
[2017-12-29] MEDS: PANTOPRAZOLE SODIUM 40 MG VIAL IV SCH (06:14)
[2017-12-29] MEDS: LEVOTHYROXINE SODIUM 75 MCG TABLET GT SCH (06:14)
[2017-12-29] MEDS: CYANOCOBALAMIN 1,000 MCG TABLET GT SCH (08:06)
[2017-12-29] MEDS: MUPIROCIN 2% OINT 22 GM TUBE NS SCH ×2 (08:06→22:21)
[2017-12-29] MEDS: AZTREONAM 0.5 G in IV NORMAL SALINE 50 ML IV SCH ×2 (08:06→22:13)
[2017-12-29] MEDS: METOCLOPRAMIDE HCL 10 MG/2 ML VIAL IV SCH ×2 (08:06→22:14)
[2017-12-29] MEDS: ASCORBIC ACID 500 MG TABLET GT SCH ×2 (08:07→16:33)
[2017-12-29] MEDS: ZINC SULFATE 220 MG CAPSULE GT SCH (08:07)
[2017-12-29] MEDS: METOPROLOL TARTRATE 25 MG TABLET GT SCH ×2 (08:07→22:12)
[2017-12-29] MEDS: NYSTATIN/TRIAMCINOLONE CREAM 15 GM TUBE TP SCH ×2 (08:08→22:14)
[2017-12-29] MEDS: Z GUARD REMEDY PASTE 57 GM TUBE TOP SCH ×2 (08:09→22:15)
[2017-12-29] MEDS: AMIODARONE HCL IV 900 MG in IV DEXTROSE 5% 482 ML IV PRN (08:35)
[2017-12-29] MEDS: INSULIN REGULAR, HUMAN 300 UNIT/3 ML VIAL SQ PRN (12:01)
[2017-12-29] MEDS: IV D5/ 0.9% NACL 1,000 ML IV PRN (12:47)
[2017-12-29] MEDS ORDERED: MIDAZOLAM HCL 2 MG/2 ML VIAL IV PRN (15:00)
[2017-12-29] MEDS ORDERED: FENTANYL CITRATE 100 MCG/2 ML AMPUL IV PRN (15:00)
[2017-12-29] MEDS ORDERED: NALOXONE HCL 0.4 MG/ML AMPUL IV ONE (18:00)
[2017-12-29] MEDS ORDERED: IOPAMIDOL 15 ML VIAL IT ONE (19:58)
[2017-12-29] MEDS ORDERED: FENTANYL CITRATE 100 MCG/2 ML AMPUL IV ONE (20:48)
[2017-12-29] MEDS ORDERED: MIDAZOLAM HCL 2 MG/2 ML VIAL IV ONE (20:48)
[2017-12-29] MEDS: ATORVASTATIN 40 MG TABLET GT SCH (22:12)
[2017-12-29] MEDS: MEROPENEM 500 MG in IV NORMAL SALINE 50 ML IV SCH (22:12)
[2017-12-30] VITALS (33 sets, daily range): BP systolic 83–145; BP diastolic 40–93
[2017-12-30] MEDS: VANCOMYCIN FOR PO/GT/NG USE PO SCH ×4 (00:42→17:47)
[2017-12-30] MEDS: BLOOD SUGAR DIAGNOSTIC 1 EACH STRIP VI SCH ×4 (00:51→17:47)
[2017-12-30] MEDS: IPRATROPIUM BROMIDE 0.5 MG/2.5 ML NEBU NEB SCH ×7 (02:30→22:36)
[2017-12-30] MEDS: ACETAMINOPHEN 325 MG TABLET PO PRN (03:58)
[2017-12-30 05:10] LABS: LYMPHOCYTES # (AUTO) 0.2 K/uL (20.0-40.0); MONOCYTES # (AUTO) 0.8 K/uL (2.0-10.0); MONOCYTES % (AUTO) 4.2 % (0.0-11.0); NEUTROPHILS # (AUTO) 18.3 K/uL (1.8-8.9)
[2017-12-30 05:12] LABS: BASOPHILS % (AUTO) 0.2 % (0.0-2.0); HEMATOCRIT 21.3 % (31.2-41.9); LYMPHOCYTES % (AUTO) 0.9 % (20.5-51.5); MEAN CORPUSCULAR HEMOGLOBIN 27.5 uug (24.7-32.8); MEAN CORPUSCULAR HGB CONC 32 g/dL (32.3-35.6); MEAN CORPUSCULAR VOLUME 87.2 fL (75.5-95.3); NEUTROPHILS % (AUTO) 94.7 % (38.5-71.5); PLATELET COUNT (AUTO) 163 K/uL (179-408); WHITE BLOOD COUNT (AUTO) 19.4 K/uL (3.8-11.8)
[2017-12-30 05:17] LABS: RED BLOOD CELL COUNT(AUTO) 2.44 MIL/uL (3.63-4.92)
[2017-12-30 05:21] LABS: HEMOGLOBIN 6.7 g/dL (10.9-14.3)
[2017-12-30] MEDS: METRONIDAZOLE 500 MG/NS 100ML 500 MG in PREMIXED 1 EACH IV SCH ×3 (05:29→22:26)
[2017-12-30 05:32] LABS: CARBON DIOXIDE 21 mmol/L (21-32); CHLORIDE 97 mmol/L (98-107); POTASSIUM 4.5 mmol/L (3.5-5.1)
[2017-12-30 05:33] LABS: CREATININE 5.2 mg/dL (0.6-1.3); GLUCOSE 103 mg/dL (74-106); UREA NITROGEN, BLOOD 69 mg/dL (7-20)
[2017-12-30 05:34] LABS: ALANINE AMINOTRANSFERASE 21 U/L (14-59); ALKALINE PHOSPHATASE 89 U/L (50-136); ASPARTATE AMINOTRANSFERASE 15 U/L (15-37); BILIRUBIN,TOTAL 0.4 mg/dL (0.1-1.0); PHOSPHOROUS 6.6 mg/dL (2.5-4.9)
[2017-12-30 05:35] LABS: TOTAL PROTEIN, SERUM 5.3 g/dL (6.4-8.2)
[2017-12-30 06:07] LABS: BASOPHILS % (AUTO) 0.1 % (0.0-2.0); EOSINOPHILS # (AUTO) 0.1 K/uL (0.0-0.7); EOSINOPHILS % (AUTO) 0.4 % (0.0-7.0); HEMATOCRIT 21.3 % (31.2-41.9); LYMPHOCYTES # (AUTO) 0.4 K/uL (20.0-40.0); LYMPHOCYTES % (AUTO) 1.6 % (20.5-51.5); MEAN CORPUSCULAR HEMOGLOBIN 27.7 uug (24.7-32.8); MEAN CORPUSCULAR HGB CONC 32 g/dL (32.3-35.6); MEAN CORPUSCULAR VOLUME 87.8 fL (75.5-95.3); MONOCYTES # (AUTO) 1.2 K/uL (2.0-10.0); MONOCYTES % (AUTO) 5.5 % (0.0-11.0); NEUTROPHILS # (AUTO) 20.5 K/uL (1.8-8.9); NEUTROPHILS % (AUTO) 92.4 % (38.5-71.5); PLATELET COUNT (AUTO) 168 K/uL (179-408); WHITE BLOOD COUNT (AUTO) 22.2 K/uL (3.8-11.8)
[2017-12-30 06:14] LABS: RED BLOOD CELL COUNT(AUTO) 2.43 MIL/uL (3.63-4.92)
[2017-12-30 06:15] LABS: HEMOGLOBIN 6.7 g/dL (10.9-14.3)
[2017-12-30] MEDS: PANTOPRAZOLE SODIUM 40 MG VIAL IV SCH (06:18)
[2017-12-30] MEDS: LEVOTHYROXINE SODIUM 75 MCG TABLET GT SCH (06:18)
[2017-12-30] MEDS: ALBUTEROL SULFATE 2.5 MG/3 ML NEBU IH PRN ×4 (07:49→22:36)
[2017-12-30 08:32] LABS: LYMPHOCYTES % (MANUAL) 2 % (20-40); MONOCYTES % (MANUAL) 5 % (2-10); NEUTROPHILS % (MANUAL) 93 % (42-75)
[2017-12-30] MEDS: AZTREONAM 0.5 G in IV NORMAL SALINE 50 ML IV SCH ×2 (08:35→21:22)
[2017-12-30] MEDS: AMIODARONE HCL IV 900 MG in IV DEXTROSE 5% 482 ML IV PRN (08:35)
[2017-12-30] MEDS: NYSTATIN/TRIAMCINOLONE CREAM 15 GM TUBE TP SCH ×2 (08:37→21:29)
[2017-12-30] MEDS: Z GUARD REMEDY PASTE 57 GM TUBE TOP SCH ×2 (08:37→21:24)
[2017-12-30] MEDS: METOCLOPRAMIDE HCL 10 MG/2 ML VIAL IV SCH ×2 (08:39→21:27)
[2017-12-30] MEDS: MUPIROCIN 2% OINT 22 GM TUBE NS SCH ×2 (08:42→21:29)
[2017-12-30] MEDS: METOPROLOL TARTRATE 25 MG TABLET GT SCH ×2 (08:58→21:26)
[2017-12-30] MEDS: ZINC SULFATE 220 MG CAPSULE GT SCH (08:58)
[2017-12-30] MEDS: CYANOCOBALAMIN 1,000 MCG TABLET GT SCH (08:58)
[2017-12-30] MEDS: ASCORBIC ACID 500 MG TABLET GT SCH ×2 (08:58→17:47)
[2017-12-30] MEDS ORDERED: MEROPENEM 500 MG in IV NORMAL SALINE 50 ML IV SCH (09:00)
[2017-12-30] MEDS: MICAFUNGIN SODIUM 100 MG in IV NORMAL SALINE 100 ML IV SCH (10:41)
[2017-12-30] MEDS: IV D5/ 0.9% NACL 1,000 ML IV PRN (16:14)
[2017-12-30] MEDS: MORPHINE SULFATE 2 MG/1 ML DISP.SYRIN IV PRN ×2 (18:37→22:25)
[2017-12-30] MEDS ORDERED: VANCOMYCIN IV 1 G in PREMIXED 0 EACH IV ONE (19:00)
[2017-12-30] MEDS ORDERED: IV NORMAL SALINE 250 ML IV ONE (20:30)
[2017-12-30] MEDS: ATORVASTATIN 40 MG TABLET GT SCH (21:26)
[2017-12-30] MEDS: MEROPENEM 500 MG in IV NORMAL SALINE 50 ML IV SCH (21:59)
[2017-12-31] VITALS (25 sets, daily range): BP systolic 90–123; BP diastolic 41–65
[2017-12-31] MEDS: VANCOMYCIN FOR PO/GT/NG USE PO SCH ×5 (00:01→23:47)
[2017-12-31] MEDS: BLOOD SUGAR DIAGNOSTIC 1 EACH STRIP VI SCH ×5 (00:04→23:59)
[2017-12-31] MEDS: ZOLPIDEM 5 MG TABLET PO PRN (00:06)
[2017-12-31] MEDS: IPRATROPIUM BROMIDE 0.5 MG/2.5 ML NEBU NEB SCH ×6 (02:46→22:53)
[2017-12-31 05:09] LABS: BASOPHILS % (AUTO) 0.3 % (0.0-2.0); EOSINOPHILS # (AUTO) 0.2 K/uL (0.0-0.7); EOSINOPHILS % (AUTO) 1.5 % (0.0-7.0); HEMATOCRIT 23.4 % (31.2-41.9); HEMOGLOBIN 7.6 g/dL (10.9-14.3); LYMPHOCYTES # (AUTO) 0.5 K/uL (20.0-40.0); LYMPHOCYTES % (AUTO) 4.5 % (20.5-51.5); MEAN CORPUSCULAR HEMOGLOBIN 28.9 uug (24.7-32.8); MEAN CORPUSCULAR HGB CONC 33 g/dL (32.3-35.6); MEAN CORPUSCULAR VOLUME 89.1 fL (75.5-95.3); MONOCYTES # (AUTO) 0.8 K/uL (2.0-10.0); MONOCYTES % (AUTO) 7.3 % (0.0-11.0); NEUTROPHILS % (AUTO) 86.4 % (38.5-71.5); PLATELET COUNT (AUTO) 126 K/uL (179-408); RED BLOOD CELL COUNT(AUTO) 2.62 MIL/uL (3.63-4.92); WHITE BLOOD COUNT (AUTO) 10.4 K/uL (3.8-11.8)
[2017-12-31] MEDS: METRONIDAZOLE 500 MG/NS 100ML 500 MG in PREMIXED 1 EACH IV SCH ×3 (05:14→21:05)
[2017-12-31 05:24] LABS: ALANINE AMINOTRANSFERASE 20 U/L (14-59); ALKALINE PHOSPHATASE 80 U/L (50-136); ASPARTATE AMINOTRANSFERASE 30 U/L (15-37); BILIRUBIN,TOTAL 0.3 mg/dL (0.2-1.0); CARBON DIOXIDE 24 mmol/L (21-32); CHLORIDE 105 mmol/L (98-107); CREATININE 3.2 mg/dL (0.6-1.3); GLUCOSE 154 mg/dL (74-106); POTASSIUM 3.9 mmol/L (3.5-5.1); TOTAL PROTEIN, SERUM 4.9 g/dL (6.4-8.2); UREA NITROGEN, BLOOD 34 mg/dL (7-18)
[2017-12-31] MEDS: PANTOPRAZOLE SODIUM 40 MG VIAL IV SCH (06:16)
[2017-12-31] MEDS: LEVOTHYROXINE SODIUM 75 MCG TABLET GT SCH (06:16)
[2017-12-31 06:20] LABS: LYMPHOCYTES % (MANUAL) 7 % (20-40); NEUTROPHILS % (MANUAL) 87 % (42-75)
[2017-12-31 06:21] LABS: EOSINOPHILS % (MANUAL) 3 % (0-8); MONOCYTES % (MANUAL) 3 % (2-10)
[2017-12-31] MEDS: CYANOCOBALAMIN 1,000 MCG TABLET GT SCH (08:47)
[2017-12-31] MEDS: ASCORBIC ACID 500 MG TABLET GT SCH ×2 (08:47→18:15)
[2017-12-31] MEDS: METOCLOPRAMIDE HCL 10 MG/2 ML VIAL IV SCH ×2 (08:47→21:03)
[2017-12-31] MEDS: AMIODARONE HCL IV 900 MG in IV DEXTROSE 5% 482 ML IV PRN (08:49)
[2017-12-31] MEDS: ZINC SULFATE 220 MG CAPSULE GT SCH (08:51)
[2017-12-31] MEDS: METOPROLOL TARTRATE 25 MG TABLET GT SCH ×2 (08:52→21:02)
[2017-12-31] MEDS: AZTREONAM 0.5 G in IV NORMAL SALINE 50 ML IV SCH ×2 (08:53→20:29)
[2017-12-31] MEDS: NYSTATIN/TRIAMCINOLONE CREAM 15 GM TUBE TP SCH ×2 (08:54→21:04)
[2017-12-31] MEDS: Z GUARD REMEDY PASTE 57 GM TUBE TOP SCH ×2 (08:56→21:04)
[2017-12-31] MEDS: MICAFUNGIN SODIUM 100 MG in IV NORMAL SALINE 100 ML IV SCH (10:21)
[2017-12-31] MEDS: MUPIROCIN 2% OINT 22 GM TUBE NS SCH ×2 (11:52→21:03)
[2017-12-31] MEDS: AMIODARONE HCL 200 MG TABLET PO SCH ×2 (11:57→21:03)
[2017-12-31] MEDS ORDERED: IV NORMAL SALINE 1000 ML BAG IV ONE (13:23)
[2017-12-31] MEDS ORDERED: ETOMIDATE 20 MG/10 ML VIAL MC ONE (13:23)
[2017-12-31] MEDS ORDERED: DOSING BY PHARMACY-MD TO SPECIFY MED/ROUTE XX PRN (13:30)
[2017-12-31] MEDS: IV D5/ 0.9% NACL 1,000 ML IV PRN ×2 (16:27→16:30)
[2017-12-31] MEDS: MEROPENEM 500 MG in IV NORMAL SALINE 50 ML IV SCH (20:28)
[2017-12-31] MEDS: ATORVASTATIN 40 MG TABLET GT SCH (21:02)
[2017-12-31] MEDS: ALBUTEROL SULFATE 2.5 MG/3 ML NEBU IH PRN (22:53)
[2017-12-31] MEDS: MORPHINE SULFATE 2 MG/1 ML DISP.SYRIN IV PRN (22:56)
[2018-01-01] VITALS (24 sets, daily range): BP systolic 93–118; BP diastolic 44–75
[2018-01-01] MEDS: ACETAMINOPHEN 325 MG TABLET PO PRN (00:13)
[2018-01-01] MEDS: ZOLPIDEM 5 MG TABLET PO PRN (00:14)
[2018-01-01] MEDS: IPRATROPIUM BROMIDE 0.5 MG/2.5 ML NEBU NEB SCH ×6 (02:40→22:56)
[2018-01-01 05:06] LABS: ALANINE AMINOTRANSFERASE 24 U/L (14-59); ALKALINE PHOSPHATASE 80 U/L (50-136); ASPARTATE AMINOTRANSFERASE 23 U/L (15-37); BASOPHILS % (AUTO) 0.2 % (0.0-2.0); BILIRUBIN,TOTAL 0.3 mg/dL (0.2-1.0); CARBON DIOXIDE 24 mmol/L (21-32); CHLORIDE 111 mmol/L (98-107); CREATININE 3.6 mg/dL (0.6-1.3); EOSINOPHILS # (AUTO) 0.6 K/uL (0.0-0.7); EOSINOPHILS % (AUTO) 6.4 % (0.0-7.0); GLUCOSE 116 mg/dL (74-106); HEMATOCRIT 25.4 % (31.2-41.9); HEMOGLOBIN 8.1 g/dL (10.9-14.3); LYMPHOCYTES # (AUTO) 0.7 K/uL (20.0-40.0); LYMPHOCYTES % (AUTO) 7.6 % (20.5-51.5); MAGNESIUM 2.1 mg/dL (1.8-2.4); MEAN CORPUSCULAR HEMOGLOBIN 28.7 uug (24.7-32.8); MEAN CORPUSCULAR HGB CONC 32 g/dL (32.3-35.6); MEAN CORPUSCULAR VOLUME 89.7 fL (75.5-95.3); MONOCYTES # (AUTO) 0.9 K/uL (2.0-10.0); MONOCYTES % (AUTO) 9.6 % (0.0-11.0); NEUTROPHILS # (AUTO) 7.3 K/uL (1.8-8.9); NEUTROPHILS % (AUTO) 76.2 % (38.5-71.5); PHOSPHOROUS 5.5 mg/dL (2.5-4.9); PLATELET COUNT (AUTO) 125 K/uL (179-408); POTASSIUM 3.5 mmol/L (3.5-5.1); RED BLOOD CELL COUNT(AUTO) 2.83 MIL/uL (3.63-4.92); TOTAL PROTEIN, SERUM 4.9 g/dL (6.4-8.2); UREA NITROGEN, BLOOD 37 mg/dL (7-18); WHITE BLOOD COUNT (AUTO) 9.6 K/uL (3.8-11.8)
[2018-01-01] MEDS: BLOOD SUGAR DIAGNOSTIC 1 EACH STRIP VI SCH ×4 (05:29→23:53)
[2018-01-01] MEDS: METRONIDAZOLE 500 MG/NS 100ML 500 MG in PREMIXED 1 EACH IV SCH ×3 (05:32→22:00)
[2018-01-01] MEDS: VANCOMYCIN FOR PO/GT/NG USE PO SCH ×4 (05:33→23:53)
[2018-01-01 06:04] LABS: BAND % (MANUAL) 1 % (0-10); EOSINOPHILS % (MANUAL) 2 % (0-8); LYMPHOCYTES % (MANUAL) 5 % (20-40); METAMYELOCYTES % 2 % (0-1); MONOCYTES % (MANUAL) 9 % (2-10); MYELOCYTES % 1 % (0-0); NEUTROPHILS % (MANUAL) 79 % (42-75); PROMYELOCYTES % 1 %
[2018-01-01] MEDS: LEVOTHYROXINE SODIUM 75 MCG TABLET GT SCH (06:07)
[2018-01-01] MEDS: PANTOPRAZOLE SODIUM 40 MG VIAL IV SCH (06:07)
[2018-01-01] MEDS: ALBUTEROL SULFATE 2.5 MG/3 ML NEBU IH PRN ×4 (06:54→22:56)
[2018-01-01] MEDS: CYANOCOBALAMIN 1,000 MCG TABLET GT SCH (08:07)
[2018-01-01] MEDS: METOPROLOL TARTRATE 25 MG TABLET GT SCH ×2 (08:07→21:58)
[2018-01-01] MEDS: METOCLOPRAMIDE HCL 10 MG/2 ML VIAL IV SCH ×2 (08:08→21:57)
[2018-01-01] MEDS: ASCORBIC ACID 500 MG TABLET GT SCH ×2 (08:08→17:10)
[2018-01-01] MEDS: ZINC SULFATE 220 MG CAPSULE GT SCH (08:08)
[2018-01-01] MEDS: MUPIROCIN 2% OINT 22 GM TUBE NS SCH ×2 (08:09→21:59)
[2018-01-01] MEDS: AMIODARONE HCL 200 MG TABLET PO SCH ×2 (08:09→22:00)
[2018-01-01] MEDS: Z GUARD REMEDY PASTE 57 GM TUBE TOP SCH ×2 (08:10→21:59)
[2018-01-01] MEDS: NYSTATIN/TRIAMCINOLONE CREAM 15 GM TUBE TP SCH ×2 (08:11→21:59)
[2018-01-01] MEDS: IV D5/ 0.9% NACL 1,000 ML IV PRN (08:19)
[2018-01-01] MEDS: AZTREONAM 0.5 G in IV NORMAL SALINE 50 ML IV SCH ×2 (08:50→21:57)
[2018-01-01] MEDS: MICAFUNGIN SODIUM 100 MG in IV NORMAL SALINE 100 ML IV SCH (09:34)
[2018-01-01] MEDS: ONDANSETRON 4 MG/2 ML VIAL IV PRN (15:50)
[2018-01-01] MEDS: NEPRO 1000 ML GT PRN (16:37)
[2018-01-01] MEDS: MEROPENEM 500 MG in IV NORMAL SALINE 50 ML IV SCH (21:57)
[2018-01-01] MEDS: ATORVASTATIN 40 MG TABLET GT SCH (21:58)
[2018-01-02] VITALS (15 sets, daily range): BP systolic 92–127; BP diastolic 32–74
[2018-01-02] MEDS: IPRATROPIUM BROMIDE 0.5 MG/2.5 ML NEBU NEB SCH ×6 (05:04→23:13)
[2018-01-02 05:05] LABS: BASOPHILS % (AUTO) 0.5 % (0.0-2.0); EOSINOPHILS # (AUTO) 0.6 K/uL (0.0-0.7); EOSINOPHILS % (AUTO) 5.8 % (0.0-7.0); HEMATOCRIT 27.1 % (31.2-41.9); HEMOGLOBIN 8.5 g/dL (10.9-14.3); LYMPHOCYTES # (AUTO) 0.9 K/uL (20.0-40.0); LYMPHOCYTES % (AUTO) 9.1 % (20.5-51.5); MEAN CORPUSCULAR HEMOGLOBIN 28.5 uug (24.7-32.8); MEAN CORPUSCULAR HGB CONC 32 g/dL (32.3-35.6); MEAN CORPUSCULAR VOLUME 90.6 fL (75.5-95.3); MONOCYTES % (AUTO) 10.2 % (0.0-11.0); NEUTROPHILS # (AUTO) 7.2 K/uL (1.8-8.9); NEUTROPHILS % (AUTO) 74.4 % (38.5-71.5); PLATELET COUNT (AUTO) 133 K/uL (179-408); RED BLOOD CELL COUNT(AUTO) 2.99 MIL/uL (3.63-4.92); WHITE BLOOD COUNT (AUTO) 9.7 K/uL (3.8-11.8)
[2018-01-02 05:32] LABS: ALANINE AMINOTRANSFERASE 21 U/L (14-59); ALKALINE PHOSPHATASE 96 U/L (50-136); ASPARTATE AMINOTRANSFERASE 16 U/L (15-37); BILIRUBIN,TOTAL 0.3 mg/dL (0.2-1.0); CARBON DIOXIDE 21 mmol/L (21-32); CHLORIDE 114 mmol/L (98-107); CREATININE 3.7 mg/dL (0.6-1.3); GLUCOSE 185 mg/dL (74-106); MAGNESIUM 2.1 mg/dL (1.8-2.4); PHOSPHOROUS 6.2 mg/dL (2.5-4.9); POTASSIUM 3.4 mmol/L (3.5-5.1); UREA NITROGEN, BLOOD 38 mg/dL (7-18)
[2018-01-02] MEDS: VANCOMYCIN FOR PO/GT/NG USE PO SCH ×4 (06:01→23:31)
[2018-01-02] MEDS: LEVOTHYROXINE SODIUM 75 MCG TABLET GT SCH (06:01)
[2018-01-02] MEDS: METRONIDAZOLE 500 MG/NS 100ML 500 MG in PREMIXED 1 EACH IV SCH ×3 (06:01→22:58)
[2018-01-02] MEDS: PANTOPRAZOLE SODIUM 40 MG VIAL IV SCH (06:01)
[2018-01-02] MEDS: INSULIN REGULAR, HUMAN 300 UNIT/3 ML VIAL SQ PRN ×5 (06:11→23:39)
[2018-01-02] MEDS: BLOOD SUGAR DIAGNOSTIC 1 EACH STRIP VI SCH ×4 (06:12→23:40)
[2018-01-02] MEDS: ALBUTEROL SULFATE 2.5 MG/3 ML NEBU IH PRN ×4 (07:27→23:14)
[2018-01-02] MEDS: IV D5/ 0.9% NACL 1,000 ML IV PRN (07:56)
[2018-01-02] MEDS: METOCLOPRAMIDE HCL 10 MG/2 ML VIAL IV SCH ×2 (08:00→20:35)
[2018-01-02] MEDS: AMIODARONE HCL 200 MG TABLET PO SCH ×2 (08:00→20:36)
[2018-01-02] MEDS: CYANOCOBALAMIN 1,000 MCG TABLET GT SCH (08:00)
[2018-01-02] MEDS: ZINC SULFATE 220 MG CAPSULE GT SCH (08:00)
[2018-01-02] MEDS: ASCORBIC ACID 500 MG TABLET GT SCH ×2 (08:00→17:54)
[2018-01-02] MEDS: METOPROLOL TARTRATE 25 MG TABLET GT SCH ×2 (08:03→20:38)
[2018-01-02] MEDS: MUPIROCIN 2% OINT 22 GM TUBE NS SCH ×2 (08:04→20:39)
[2018-01-02] MEDS: Z GUARD REMEDY PASTE 57 GM TUBE TOP SCH ×2 (08:06→20:37)
[2018-01-02] MEDS: NYSTATIN/TRIAMCINOLONE CREAM 15 GM TUBE TP SCH ×2 (08:06→20:37)
[2018-01-02] MEDS: AZTREONAM 0.5 G in IV NORMAL SALINE 50 ML IV SCH ×2 (08:14→20:35)
[2018-01-02] MEDS: NEPRO 1000 ML GT PRN (08:14)
[2018-01-02] MEDS: MICAFUNGIN SODIUM 100 MG in IV NORMAL SALINE 100 ML IV SCH (11:59)
[2018-01-02] MEDS ORDERED: ALTEPLASE 2 MG VIAL XX ONE ×2 (15:45)
[2018-01-02] MEDS: ATORVASTATIN 40 MG TABLET GT SCH (20:36)
[2018-01-02] MEDS: ACETAMINOPHEN 325 MG TABLET PO PRN (23:01)
[2018-01-02] MEDS: ZOLPIDEM 5 MG TABLET PO PRN (23:01)
[2018-01-03] VITALS (9 sets, daily range): BP systolic 101–124; BP diastolic 44–60
[2018-01-03] MEDS: MORPHINE SULFATE 2 MG/1 ML DISP.SYRIN IV PRN ×2 (01:06→20:12)
[2018-01-03] MEDS: VANCOMYCIN FOR PO/GT/NG USE PO SCH ×4 (05:15→23:21)
[2018-01-03] MEDS: METRONIDAZOLE 500 MG/NS 100ML 500 MG in PREMIXED 1 EACH IV SCH ×3 (05:15→21:32)
[2018-01-03] MEDS: IV D5/ 0.9% NACL 1,000 ML IV PRN (05:18)
[2018-01-03] MEDS: IPRATROPIUM BROMIDE 0.5 MG/2.5 ML NEBU NEB SCH ×6 (05:24→22:31)
[2018-01-03] MEDS: ALBUTEROL SULFATE 2.5 MG/3 ML NEBU IH PRN ×4 (05:25→14:31)
[2018-01-03] MEDS: BLOOD SUGAR DIAGNOSTIC 1 EACH STRIP VI SCH ×4 (05:48→23:14)
[2018-01-03] MEDS: LEVOTHYROXINE SODIUM 75 MCG TABLET GT SCH (06:05)
[2018-01-03] MEDS: PANTOPRAZOLE SODIUM 40 MG VIAL IV SCH (06:05)
[2018-01-03 08:18] LABS: BASOPHILS # (AUTO) 0.1 K/uL (0.0-8.0); BASOPHILS % (AUTO) 0.5 % (0.0-2.0); EOSINOPHILS # (AUTO) 1.1 K/uL (0.0-0.7); EOSINOPHILS % (AUTO) 11.1 % (0.0-7.0); HEMATOCRIT 26.8 % (31.2-41.9); HEMOGLOBIN 8.6 g/dL (10.9-14.3); LYMPHOCYTES # (AUTO) 1.6 K/uL (20.0-40.0); LYMPHOCYTES % (AUTO) 15.8 % (20.5-51.5); MEAN CORPUSCULAR HEMOGLOBIN 28.9 uug (24.7-32.8); MEAN CORPUSCULAR HGB CONC 32 g/dL (32.3-35.6); MEAN CORPUSCULAR VOLUME 90.6 fL (75.5-95.3); MONOCYTES % (AUTO) 10.5 % (0.0-11.0); NEUTROPHILS # (AUTO) 6.2 K/uL (1.8-8.9); NEUTROPHILS % (AUTO) 62.1 % (38.5-71.5); PLATELET COUNT (AUTO) 134 K/uL (179-408); RED BLOOD CELL COUNT(AUTO) 2.96 MIL/uL (3.63-4.92)
[2018-01-03 08:26] LABS: ALANINE AMINOTRANSFERASE 17 U/L (14-59); ALKALINE PHOSPHATASE 114 U/L (50-136); ASPARTATE AMINOTRANSFERASE 14 U/L (15-37); BILIRUBIN,TOTAL 0.3 mg/dL (0.2-1.0); CARBON DIOXIDE 20 mmol/L (21-32); CHLORIDE 118 mmol/L (98-107); CREATININE 3.3 mg/dL (0.6-1.3); GLUCOSE 110 mg/dL (74-106); MAGNESIUM 1.6 mg/dL (1.8-2.4); PHOSPHOROUS 4.9 mg/dL (2.5-4.9); POTASSIUM 2.9 mmol/L (3.5-5.1); TOTAL PROTEIN, SERUM 5.1 g/dL (6.4-8.2); UREA NITROGEN, BLOOD 36 mg/dL (7-18)
[2018-01-03] MEDS: ASCORBIC ACID 500 MG TABLET GT SCH ×2 (09:06→17:42)
[2018-01-03] MEDS: ZINC SULFATE 220 MG CAPSULE GT SCH (09:06)
[2018-01-03] MEDS: CYANOCOBALAMIN 1,000 MCG TABLET GT SCH (09:07)
[2018-01-03] MEDS: AMIODARONE HCL 200 MG TABLET PO SCH ×2 (09:07→20:13)
[2018-01-03] MEDS: AZTREONAM 0.5 G in IV NORMAL SALINE 50 ML IV SCH ×2 (09:08→20:14)
[2018-01-03] MEDS: Z GUARD REMEDY PASTE 57 GM TUBE TOP SCH ×2 (09:08→20:13)
[2018-01-03] MEDS: METOCLOPRAMIDE HCL 10 MG/2 ML VIAL IV SCH ×2 (09:08→20:12)
[2018-01-03] MEDS: MUPIROCIN 2% OINT 22 GM TUBE NS SCH ×2 (09:09→20:14)
[2018-01-03] MEDS: NYSTATIN/TRIAMCINOLONE CREAM 15 GM TUBE TP SCH ×2 (09:10→20:13)
[2018-01-03] MEDS: METOPROLOL TARTRATE 25 MG TABLET GT SCH ×2 (09:15→20:12)
[2018-01-03] MEDS ORDERED: POTASSIUM CHLORIDE 50 ML IV SCH (10:15)
[2018-01-03] MEDS: MICAFUNGIN SODIUM 100 MG in IV NORMAL SALINE 100 ML IV SCH (10:56)
[2018-01-03] MEDS: ATORVASTATIN 40 MG TABLET GT SCH (20:11)
[2018-01-04] VITALS (7 sets, daily range): BP systolic 108–129; BP diastolic 50–61
[2018-01-04] MEDS: IPRATROPIUM BROMIDE 0.5 MG/2.5 ML NEBU NEB SCH ×6 (04:38→23:18)
[2018-01-04] MEDS: METRONIDAZOLE 500 MG/NS 100ML 500 MG in PREMIXED 1 EACH IV SCH ×3 (05:25→21:35)
[2018-01-04] MEDS: VANCOMYCIN FOR PO/GT/NG USE PO SCH ×3 (05:25→16:29)
[2018-01-04 05:27] LABS: BASOPHILS # (AUTO) 0.1 K/uL (0.0-8.0); BASOPHILS % (AUTO) 0.5 % (0.0-2.0); EOSINOPHILS # (AUTO) 0.8 K/uL (0.0-0.7); EOSINOPHILS % (AUTO) 7.6 % (0.0-7.0); HEMOGLOBIN 8.6 g/dL (10.9-14.3); LYMPHOCYTES # (AUTO) 1.3 K/uL (20.0-40.0); LYMPHOCYTES % (AUTO) 12.8 % (20.5-51.5); MEAN CORPUSCULAR HEMOGLOBIN 28.7 uug (24.7-32.8); MEAN CORPUSCULAR HGB CONC 32 g/dL (32.3-35.6); MEAN CORPUSCULAR VOLUME 90.5 fL (75.5-95.3); NEUTROPHILS # (AUTO) 7.2 K/uL (1.8-8.9); NEUTROPHILS % (AUTO) 69.1 % (38.5-71.5); PLATELET COUNT (AUTO) 138 K/uL (179-408); RED BLOOD CELL COUNT(AUTO) 2.98 MIL/uL (3.63-4.92); WHITE BLOOD COUNT (AUTO) 10.4 K/uL (3.8-11.8)
[2018-01-04] MEDS: BLOOD SUGAR DIAGNOSTIC 1 EACH STRIP VI SCH ×3 (05:35→16:38)
[2018-01-04 05:38] LABS: ALANINE AMINOTRANSFERASE 17 U/L (14-59); ALKALINE PHOSPHATASE 149 U/L (50-136); ASPARTATE AMINOTRANSFERASE 13 U/L (15-37); BILIRUBIN,TOTAL 0.3 mg/dL (0.2-1.0); CARBON DIOXIDE 24 mmol/L (21-32); CHLORIDE 114 mmol/L (98-107); CREATININE 2.5 mg/dL (0.6-1.3); GLUCOSE 148 mg/dL (74-106); MAGNESIUM 1.6 mg/dL (1.8-2.4); PHOSPHOROUS 3.3 mg/dL (2.5-4.9); POTASSIUM 3.6 mmol/L (3.5-5.1); UREA NITROGEN, BLOOD 23 mg/dL (7-18)
[2018-01-04 06:21] LABS: EOSINOPHILS % (MANUAL) 7 % (0-8); LYMPHOCYTES % (MANUAL) 9 % (20-40); METAMYELOCYTES % 4 % (0-1); MYELOCYTES % 2 % (0-0); NEUTROPHILS % (MANUAL) 76 % (42-75); PROMYELOCYTES % 1 %
[2018-01-04] MEDS: LEVOTHYROXINE SODIUM 75 MCG TABLET GT SCH (06:25)
[2018-01-04] MEDS: PANTOPRAZOLE SODIUM 40 MG VIAL IV SCH (06:25)
[2018-01-04] MEDS: ALBUTEROL SULFATE 2.5 MG/3 ML NEBU IH PRN ×3 (06:52→15:24)
[2018-01-04] MEDS: AMIODARONE HCL 200 MG TABLET PO SCH ×2 (09:16→20:11)
[2018-01-04] MEDS: ASCORBIC ACID 500 MG TABLET GT SCH ×2 (09:17→16:29)
[2018-01-04] MEDS: METOCLOPRAMIDE HCL 10 MG/2 ML VIAL IV SCH ×2 (09:17→20:12)
[2018-01-04] MEDS: ZINC SULFATE 220 MG CAPSULE GT SCH (09:17)
[2018-01-04] MEDS: METOPROLOL TARTRATE 25 MG TABLET GT SCH ×2 (09:17→20:11)
[2018-01-04] MEDS: CYANOCOBALAMIN 1,000 MCG TABLET GT SCH (09:17)
[2018-01-04] MEDS: NYSTATIN/TRIAMCINOLONE CREAM 15 GM TUBE TP SCH ×2 (09:18→20:12)
[2018-01-04] MEDS: AZTREONAM 0.5 G in IV NORMAL SALINE 50 ML IV SCH ×2 (09:18→20:11)
[2018-01-04] MEDS: Z GUARD REMEDY PASTE 57 GM TUBE TOP SCH ×2 (09:19→20:12)
[2018-01-04] MEDS: MUPIROCIN 2% OINT 22 GM TUBE NS SCH ×2 (09:19→20:11)
[2018-01-04] MEDS: MICAFUNGIN SODIUM 100 MG in IV NORMAL SALINE 100 ML IV SCH (09:20)
[2018-01-04] MEDS ORDERED: MAGNESIUM SULFATE/D5W 100 ML IV SCH ×2 (12:15→12:45)
[2018-01-04] MEDS: IV D5/ 0.9% NACL 1,000 ML IV PRN (14:41)
[2018-01-04] MEDS: INSULIN REGULAR, HUMAN 300 UNIT/3 ML VIAL SQ PRN (16:42)
[2018-01-04] MEDS: ATORVASTATIN 40 MG TABLET GT SCH (20:10)
[2018-01-04] MEDS: NEPRO 1000 ML GT PRN (20:14)
[2018-01-05] VITALS: BP 112/56
[2018-01-05] MEDS: VANCOMYCIN FOR PO/GT/NG USE PO SCH ×5 (00:15→23:46)
[2018-01-05] MEDS: BLOOD SUGAR DIAGNOSTIC 1 EACH STRIP VI SCH ×5 (00:34→23:53)
[2018-01-05] MEDS: INSULIN REGULAR, HUMAN 300 UNIT/3 ML VIAL SQ PRN ×5 (00:36→23:54)
[2018-01-05] MEDS: IPRATROPIUM BROMIDE 0.5 MG/2.5 ML NEBU NEB SCH ×6 (03:16→23:30)
[2018-01-05 04:00] VITALS: BP 118/67
[2018-01-05] MEDS: METRONIDAZOLE 500 MG/NS 100ML 500 MG in PREMIXED 1 EACH IV SCH ×3 (05:19→22:08)
[2018-01-05 05:20] LABS: ALANINE AMINOTRANSFERASE 14 U/L (14-59); ALKALINE PHOSPHATASE 154 U/L (50-136); ASPARTATE AMINOTRANSFERASE 13 U/L (15-37); BILIRUBIN,TOTAL 0.3 mg/dL (0.2-1.0); CARBON DIOXIDE 23 mmol/L (21-32); CHLORIDE 117 mmol/L (98-107); CREATININE 2.5 mg/dL (0.6-1.3); GLUCOSE 195 mg/dL (74-106); MAGNESIUM 1.9 mg/dL (1.8-2.4); PHOSPHOROUS 3.5 mg/dL (2.5-4.9); POTASSIUM 3.1 mmol/L (3.5-5.1); TOTAL PROTEIN, SERUM 4.8 g/dL (6.4-8.2); UREA NITROGEN, BLOOD 33 mg/dL (7-18)
[2018-01-05 05:27] LABS: BASOPHILS % (AUTO) 0.3 % (0.0-2.0); EOSINOPHILS # (AUTO) 0.7 K/uL (0.0-0.7); EOSINOPHILS % (AUTO) 6.1 % (0.0-7.0); HEMATOCRIT 25.2 % (31.2-41.9); LYMPHOCYTES # (AUTO) 1.4 K/uL (20.0-40.0); LYMPHOCYTES % (AUTO) 11.5 % (20.5-51.5); MEAN CORPUSCULAR HEMOGLOBIN 28.6 uug (24.7-32.8); MEAN CORPUSCULAR HGB CONC 32 g/dL (32.3-35.6); MEAN CORPUSCULAR VOLUME 90.8 fL (75.5-95.3); MONOCYTES # (AUTO) 1.2 K/uL (2.0-10.0); MONOCYTES % (AUTO) 9.7 % (0.0-11.0); NEUTROPHILS # (AUTO) 8.8 K/uL (1.8-8.9); NEUTROPHILS % (AUTO) 72.4 % (38.5-71.5); PLATELET COUNT (AUTO) 142 K/uL (179-408); RED BLOOD CELL COUNT(AUTO) 2.78 MIL/uL (3.63-4.92); WHITE BLOOD COUNT (AUTO) 12.2 K/uL (3.8-11.8)
[2018-01-05] MEDS: PANTOPRAZOLE SODIUM 40 MG VIAL IV SCH (06:11)
[2018-01-05] MEDS: LEVOTHYROXINE SODIUM 75 MCG TABLET GT SCH (06:11)
[2018-01-05] MEDS: ALBUTEROL SULFATE 2.5 MG/3 ML NEBU IH PRN ×5 (07:26→23:30)
[2018-01-05 08:00] VITALS: BP 103/52
[2018-01-05] MEDS: CYANOCOBALAMIN 1,000 MCG TABLET GT SCH (08:25)
[2018-01-05] MEDS: ZINC SULFATE 220 MG CAPSULE GT SCH (08:25)
[2018-01-05] MEDS: AMIODARONE HCL 200 MG TABLET PO SCH ×2 (08:26→20:48)
[2018-01-05] MEDS: ASCORBIC ACID 500 MG TABLET GT SCH ×2 (08:26→17:20)
[2018-01-05] MEDS: METOPROLOL TARTRATE 25 MG TABLET GT SCH ×2 (08:27→20:48)
[2018-01-05] MEDS: METOCLOPRAMIDE HCL 10 MG/2 ML VIAL IV SCH ×2 (08:28→20:48)
[2018-01-05] MEDS: Z GUARD REMEDY PASTE 57 GM TUBE TOP PRN (08:37)
[2018-01-05] MEDS: Z GUARD REMEDY PASTE 57 GM TUBE TOP SCH ×2 (08:38→20:51)
[2018-01-05] MEDS: MUPIROCIN 2% OINT 22 GM TUBE NS SCH ×2 (08:40→20:50)
[2018-01-05] MEDS: NYSTATIN/TRIAMCINOLONE CREAM 15 GM TUBE TP SCH ×2 (08:42→20:51)
[2018-01-05] MEDS: AZTREONAM 0.5 G in IV NORMAL SALINE 50 ML IV SCH ×2 (08:52→20:49)
[2018-01-05] MEDS: MICAFUNGIN SODIUM 100 MG in IV NORMAL SALINE 100 ML IV SCH (10:29)
[2018-01-05 12:00] VITALS: BP 114/51
[2018-01-05] MEDS: ACETAMINOPHEN 325 MG TABLET PO PRN (14:21)
[2018-01-05] MEDS: MORPHINE SULFATE 2 MG/1 ML DISP.SYRIN IV PRN ×2 (15:10→21:00)
[2018-01-05] MEDS: IV D5/ 0.9% NACL 1,000 ML IV PRN (15:12)
[2018-01-05 16:00] VITALS: BP 119/54
[2018-01-05 20:00] VITALS: BP 130/70
[2018-01-05] MEDS: ATORVASTATIN 40 MG TABLET GT SCH (20:48)
[2018-01-05] MEDS: ZOLPIDEM 5 MG TABLET PO PRN (21:00)
[2018-01-06 00:01] VITALS: BP 124/72
[2018-01-06] MEDS: MORPHINE SULFATE 2 MG/1 ML DISP.SYRIN IV PRN ×2 (02:20→22:17)
[2018-01-06] MEDS: ACETAMINOPHEN 325 MG TABLET PO PRN ×2 (02:20→20:14)
[2018-01-06] MEDS: ALBUTEROL SULFATE 2.5 MG/3 ML NEBU IH PRN ×6 (03:42→23:30)
[2018-01-06] MEDS: IPRATROPIUM BROMIDE 0.5 MG/2.5 ML NEBU NEB SCH ×6 (03:42→23:29)
[2018-01-06 04:00] VITALS: BP 131/62
[2018-01-06 05:08] LABS: BASOPHILS % (AUTO) 0.3 % (0.0-2.0); EOSINOPHILS # (AUTO) 0.5 K/uL (0.0-0.7); EOSINOPHILS % (AUTO) 3.8 % (0.0-7.0); HEMATOCRIT 25.2 % (31.2-41.9); HEMOGLOBIN 7.9 g/dL (10.9-14.3); LYMPHOCYTES # (AUTO) 1.2 K/uL (20.0-40.0); LYMPHOCYTES % (AUTO) 8.9 % (20.5-51.5); MEAN CORPUSCULAR HEMOGLOBIN 28.1 uug (24.7-32.8); MEAN CORPUSCULAR HGB CONC 31 g/dL (32.3-35.6); MONOCYTES % (AUTO) 7.4 % (0.0-11.0); NEUTROPHILS # (AUTO) 10.4 K/uL (1.8-8.9); NEUTROPHILS % (AUTO) 79.6 % (38.5-71.5); PLATELET COUNT (AUTO) 161 K/uL (179-408)
[2018-01-06 05:23] LABS: ALANINE AMINOTRANSFERASE 16 U/L (14-59); ALKALINE PHOSPHATASE 128 U/L (50-136); ASPARTATE AMINOTRANSFERASE 12 U/L (15-37); BILIRUBIN,TOTAL 0.3 mg/dL (0.2-1.0); CARBON DIOXIDE 22 mmol/L (21-32); CHLORIDE 119 mmol/L (98-107); CREATININE 2.4 mg/dL (0.6-1.3); GLUCOSE 171 mg/dL (74-106); MAGNESIUM 1.6 mg/dL (1.8-2.4); PHOSPHOROUS 3.1 mg/dL (2.5-4.9); UREA NITROGEN, BLOOD 38 mg/dL (7-18)
[2018-01-06 05:34] LABS: POTASSIUM 2.6 mmol/L (3.5-5.1)
[2018-01-06] MEDS: LEVOTHYROXINE SODIUM 75 MCG TABLET GT SCH (05:45)
[2018-01-06] MEDS: PANTOPRAZOLE ORAL SUSPENSION 40 MG SUSPDR.PKT GT SCH (05:45)
[2018-01-06] MEDS: METRONIDAZOLE 500 MG/NS 100ML 500 MG in PREMIXED 1 EACH IV SCH ×3 (05:47→22:16)
[2018-01-06] MEDS: VANCOMYCIN FOR PO/GT/NG USE PO SCH ×3 (05:48→16:31)
[2018-01-06] MEDS: BLOOD SUGAR DIAGNOSTIC 1 EACH STRIP VI SCH ×3 (05:57→17:16)
[2018-01-06] MEDS: INSULIN REGULAR, HUMAN 300 UNIT/3 ML VIAL SQ PRN ×3 (05:59→17:17)
[2018-01-06 08:00] VITALS: BP 141/69
[2018-01-06] MEDS: AZTREONAM 0.5 G in IV NORMAL SALINE 50 ML IV SCH ×2 (08:54→22:19)
[2018-01-06] MEDS: CYANOCOBALAMIN 1,000 MCG TABLET GT SCH (08:55)
[2018-01-06] MEDS: ZINC SULFATE 220 MG CAPSULE GT SCH (08:55)
[2018-01-06] MEDS: AMIODARONE HCL 200 MG TABLET PO SCH ×2 (08:55→22:17)
[2018-01-06] MEDS: ASCORBIC ACID 500 MG TABLET GT SCH ×2 (08:55→16:32)
[2018-01-06] MEDS: METOCLOPRAMIDE HCL 10 MG/2 ML VIAL IV SCH ×2 (08:55→20:13)
[2018-01-06] MEDS: METOPROLOL TARTRATE 25 MG TABLET GT SCH ×2 (08:56→20:16)
[2018-01-06] MEDS: Z GUARD REMEDY PASTE 57 GM TUBE TOP SCH ×2 (08:56→20:13)
[2018-01-06] MEDS: NYSTATIN/TRIAMCINOLONE CREAM 15 GM TUBE TP SCH ×2 (08:57→20:15)
[2018-01-06] MEDS: MUPIROCIN 2% OINT 22 GM TUBE NS SCH ×2 (08:58→20:15)
[2018-01-06] MEDS: MICAFUNGIN SODIUM 100 MG in IV NORMAL SALINE 100 ML IV SCH (08:59)
[2018-01-06] MEDS: NEPRO 1000 ML GT PRN (08:59)
[2018-01-06] MEDS: IV D5/ 0.9% NACL 1,000 ML IV PRN (09:01)
[2018-01-06] MEDS ORDERED: POTASSIUM CHLORIDE 50 ML IV SCH ×2 (10:15→14:15)
[2018-01-06 12:00] VITALS: BP 154/71
[2018-01-06] MEDS ORDERED: POTASSIUM CHLORIDE 20 MEQ POWDER PACKET GT ONE (12:15)
[2018-01-06] MEDS ORDERED: MAGNESIUM SULFATE/D5W 100 ML IV SCH (12:15)
[2018-01-06] MEDS: MAGNESIUM SULFATE/D5W 100 ML IV SCH ×2 (13:31→14:57)
[2018-01-06 16:00] VITALS: BP 138/54
[2018-01-06 19:00] VITALS: BP 145/62
[2018-01-06] MEDS: ATORVASTATIN 40 MG TABLET GT SCH (20:13)
[2018-01-07] VITALS (9 sets, daily range): BP systolic 121–154; BP diastolic 50–93
[2018-01-07] MEDS: VANCOMYCIN FOR PO/GT/NG USE PO SCH ×5 (01:22→23:22)
[2018-01-07] MEDS: BLOOD SUGAR DIAGNOSTIC 1 EACH STRIP VI SCH ×4 (01:22→17:30)
[2018-01-07] MEDS: Z GUARD REMEDY PASTE 57 GM TUBE TOP PRN (01:25)
[2018-01-07] MEDS: INSULIN REGULAR, HUMAN 300 UNIT/3 ML VIAL SQ PRN ×5 (01:28→23:53)
[2018-01-07] MEDS: ALBUTEROL SULFATE 2.5 MG/3 ML NEBU IH PRN ×6 (02:01→23:13)
[2018-01-07] MEDS: IPRATROPIUM BROMIDE 0.5 MG/2.5 ML NEBU NEB SCH ×6 (02:01→23:13)
[2018-01-07] MEDS: METRONIDAZOLE 500 MG/NS 100ML 500 MG in PREMIXED 1 EACH IV SCH ×3 (05:40→21:58)
[2018-01-07] MEDS: PANTOPRAZOLE ORAL SUSPENSION 40 MG SUSPDR.PKT GT SCH (05:40)
[2018-01-07] MEDS: LEVOTHYROXINE SODIUM 75 MCG TABLET GT SCH (06:26)
[2018-01-07 06:38] LABS: BASOPHILS # (AUTO) 0.1 K/uL (0.0-8.0); BASOPHILS % (AUTO) 0.5 % (0.0-2.0); EOSINOPHILS # (AUTO) 0.4 K/uL (0.0-0.7); EOSINOPHILS % (AUTO) 3.3 % (0.0-7.0); HEMATOCRIT 25.5 % (31.2-41.9); LYMPHOCYTES # (AUTO) 1.3 K/uL (20.0-40.0); LYMPHOCYTES % (AUTO) 11.2 % (20.5-51.5); MEAN CORPUSCULAR HEMOGLOBIN 29.3 uug (24.7-32.8); MEAN CORPUSCULAR HGB CONC 31 g/dL (32.3-35.6); MEAN CORPUSCULAR VOLUME 93.7 fL (75.5-95.3); MONOCYTES # (AUTO) 1.2 K/uL (2.0-10.0); MONOCYTES % (AUTO) 9.7 % (0.0-11.0); NEUTROPHILS # (AUTO) 8.9 K/uL (1.8-8.9); NEUTROPHILS % (AUTO) 75.3 % (38.5-71.5); PLATELET COUNT (AUTO) 190 K/uL (179-408); RED BLOOD CELL COUNT(AUTO) 2.72 MIL/uL (3.63-4.92); WHITE BLOOD COUNT (AUTO) 11.8 K/uL (3.8-11.8)
[2018-01-07 06:47] LABS: CARBON DIOXIDE 23 mmol/L (21-32); CHLORIDE 120 mmol/L (98-107); CREATININE 2.3 mg/dL (0.6-1.3); GLUCOSE 201 mg/dL (74-106); MAGNESIUM 2.5 mg/dL (1.8-2.4); PHOSPHOROUS 2.7 mg/dL (2.5-4.9); POTASSIUM 3.6 mmol/L (3.5-5.1)
[2018-01-07 07:11] LABS: UREA NITROGEN, BLOOD 37 mg/dL (7-18)
[2018-01-07] MEDS: ZINC SULFATE 220 MG CAPSULE GT SCH (08:08)
[2018-01-07] MEDS: AMIODARONE HCL 200 MG TABLET PO SCH ×2 (08:09→21:16)
[2018-01-07] MEDS: ASCORBIC ACID 500 MG TABLET GT SCH ×2 (08:09→17:00)
[2018-01-07] MEDS: CYANOCOBALAMIN 1,000 MCG TABLET GT SCH (08:09)
[2018-01-07] MEDS: METOCLOPRAMIDE HCL 10 MG/2 ML VIAL IV SCH ×2 (08:09→21:17)
[2018-01-07] MEDS: METOPROLOL TARTRATE 25 MG TABLET GT SCH ×2 (08:11→21:16)
[2018-01-07] MEDS: Z GUARD REMEDY PASTE 57 GM TUBE TOP SCH ×2 (08:13→21:17)
[2018-01-07] MEDS: NYSTATIN/TRIAMCINOLONE CREAM 15 GM TUBE TP SCH ×2 (08:14→21:22)
[2018-01-07] MEDS: MUPIROCIN 2% OINT 22 GM TUBE NS SCH (08:14)
[2018-01-07] MEDS: AZTREONAM 0.5 G in IV NORMAL SALINE 50 ML IV SCH ×2 (08:40→21:17)
[2018-01-07] MEDS: MICAFUNGIN SODIUM 100 MG in IV NORMAL SALINE 100 ML IV SCH (09:49)
[2018-01-07] MEDS: IV D5W 1000ML 1,000 ML IV PRN (11:36)
[2018-01-07 18:42] LABS: HEMATOCRIT 23.5 % (31.2-41.9)
[2018-01-07 18:47] LABS: *BILIRUBIN,URIN NEGATIVE (NEGATIVE); *BLOOD, URINE 3+ (NEGATIVE); *CLARITY,URINE CLOUDY (CLEAR); *COLOR,URINE DARK YELLOW (YELLOW); *KETONES,URINE NEGATIVE (NEGATIVE); *PROTEIN,URINE 2+ (NEGATIVE); *UROBILINOGEN,URINE 0.2 E.U./dl (NORMAL); LEUKOCYTE ESTERASE ,URINE 1+ (NEGATIVE); NITRITE, URINE NEGATIVE (NEGATIVE)
[2018-01-07 18:48] LABS: HEMOGLOBIN 7.3 g/dL (10.9-14.3); UGLUCOSE 2+ (NEGATIVE)
[2018-01-07 18:50] LABS: BACTERIA,URINE RARE /HPF (NONE SEEN); RBC,URINE TNTC /HPF (0-3); SQUAMOUS EPITHELIAL CELL,UR FEW /HPF (NONE SEEN)
[2018-01-07] MEDS: ATORVASTATIN 40 MG TABLET GT SCH (21:16)
[2018-01-07] MEDS: MORPHINE SULFATE 2 MG/1 ML DISP.SYRIN IV PRN (21:19)
[2018-01-08] VITALS (25 sets, daily range): BP systolic 101–138; BP diastolic 46–72
[2018-01-08] MEDS: BLOOD SUGAR DIAGNOSTIC 1 EACH STRIP VI SCH ×5 (00:05→23:38)
[2018-01-08] MEDS: ZOLPIDEM 5 MG TABLET PO PRN (00:05)
[2018-01-08] MEDS: IV D5W 1000ML 1,000 ML IV PRN ×2 (01:09→20:02)
[2018-01-08] MEDS: IPRATROPIUM BROMIDE 0.5 MG/2.5 ML NEBU NEB SCH ×6 (04:01→23:23)
[2018-01-08] MEDS: ALBUTEROL SULFATE 2.5 MG/3 ML NEBU IH PRN ×2 (04:02→23:23)
[2018-01-08] MEDS: MORPHINE SULFATE 2 MG/1 ML DISP.SYRIN IV PRN (04:26)
[2018-01-08 05:11] LABS: BASOPHILS # (AUTO) 0.1 K/uL (0.0-8.0); BASOPHILS % (AUTO) 0.8 % (0.0-2.0); EOSINOPHILS # (AUTO) 0.4 K/uL (0.0-0.7); EOSINOPHILS % (AUTO) 2.8 % (0.0-7.0); HEMATOCRIT 25.3 % (31.2-41.9); HEMOGLOBIN 7.9 g/dL (10.9-14.3); LYMPHOCYTES # (AUTO) 2.5 K/uL (20.0-40.0); LYMPHOCYTES % (AUTO) 19.6 % (20.5-51.5); MEAN CORPUSCULAR HEMOGLOBIN 28.4 uug (24.7-32.8); MEAN CORPUSCULAR HGB CONC 31 g/dL (32.3-35.6); MEAN CORPUSCULAR VOLUME 91.2 fL (75.5-95.3); MONOCYTES # (AUTO) 1.1 K/uL (2.0-10.0); MONOCYTES % (AUTO) 8.5 % (0.0-11.0); NEUTROPHILS # (AUTO) 8.6 K/uL (1.8-8.9); NEUTROPHILS % (AUTO) 68.3 % (38.5-71.5); PLATELET COUNT (AUTO) 239 K/uL (179-408); RED BLOOD CELL COUNT(AUTO) 2.77 MIL/uL (3.63-4.92); WHITE BLOOD COUNT (AUTO) 12.6 K/uL (3.8-11.8)
[2018-01-08 05:28] LABS: ALANINE AMINOTRANSFERASE 16 U/L (14-59); ALKALINE PHOSPHATASE 92 U/L (50-136); ASPARTATE AMINOTRANSFERASE 13 U/L (15-37); BILIRUBIN,TOTAL 0.3 mg/dL (0.2-1.0); CARBON DIOXIDE 24 mmol/L (21-32); CHLORIDE 117 mmol/L (98-107); CREATININE 2.1 mg/dL (0.6-1.3); GLUCOSE 218 mg/dL (74-106); MAGNESIUM 1.8 mg/dL (1.8-2.4); PHOSPHOROUS 3.1 mg/dL (2.5-4.9); POTASSIUM 3.5 mmol/L (3.5-5.1); TOTAL PROTEIN, SERUM 5.5 g/dL (6.4-8.2); UREA NITROGEN, BLOOD 36 mg/dL (7-18)
[2018-01-08] MEDS: PANTOPRAZOLE ORAL SUSPENSION 40 MG SUSPDR.PKT GT SCH (05:40)
[2018-01-08] MEDS: METRONIDAZOLE 500 MG/NS 100ML 500 MG in PREMIXED 1 EACH IV SCH ×3 (05:40→21:40)
[2018-01-08] MEDS: VANCOMYCIN FOR PO/GT/NG USE PO SCH ×4 (05:42→23:38)
[2018-01-08] MEDS: Z GUARD REMEDY PASTE 57 GM TUBE TOP PRN (05:43)
[2018-01-08] MEDS: INSULIN REGULAR, HUMAN 300 UNIT/3 ML VIAL SQ PRN ×2 (05:59→12:08)
[2018-01-08] MEDS: LEVOTHYROXINE SODIUM 75 MCG TABLET GT SCH (06:00)
[2018-01-08] MEDS: AMIODARONE HCL 200 MG TABLET PO SCH ×2 (08:15→20:46)
[2018-01-08] MEDS: METOPROLOL TARTRATE 25 MG TABLET GT SCH ×2 (08:16→20:47)
[2018-01-08] MEDS: ZINC SULFATE 220 MG CAPSULE GT SCH (08:16)
[2018-01-08] MEDS: CYANOCOBALAMIN 1,000 MCG TABLET GT SCH (08:16)
[2018-01-08] MEDS: METOCLOPRAMIDE HCL 10 MG/2 ML VIAL IV SCH ×2 (08:17→20:47)
[2018-01-08] MEDS: Z GUARD REMEDY PASTE 57 GM TUBE TOP SCH ×2 (08:18→20:47)
[2018-01-08] MEDS: ASCORBIC ACID 500 MG TABLET GT SCH ×2 (08:26→17:51)
[2018-01-08] MEDS: NYSTATIN/TRIAMCINOLONE CREAM 15 GM TUBE TP SCH (08:28)
[2018-01-08] MEDS: AZTREONAM 0.5 G in IV NORMAL SALINE 50 ML IV SCH ×2 (08:28→20:01)
[2018-01-08 09:19] LABS: ABG BASE EXCESS -4.8 mmol/L; ABG HCO3 19.7 mmol/L; ABG PCO2 33.8 mmHg (35.0-45.0); ABG PH 7.383 (7.350-7.450); ABG PO2 68.9 mmHg (75.0-100.0); ABG SITE LEFT RADIAL; ABG TOTAL HEMOGLOBIN 8.2 G/dL (12.0-16.0); COHb 1.9 % (0.5-1.5); MetHb 0.4 % (0.0-1.5); O2Hb 90.5 % (94.0-97.0); VENT MODE Nasal Cannula
[2018-01-08] MEDS: MICAFUNGIN SODIUM 100 MG in IV NORMAL SALINE 100 ML IV SCH (10:51)
[2018-01-08] MEDS: ONDANSETRON 4 MG/2 ML VIAL IV PRN (20:12)
[2018-01-08] MEDS: ATORVASTATIN 40 MG TABLET GT SCH (20:46)
[2018-01-09] VITALS (24 sets, daily range): BP systolic 99–137; BP diastolic 35–100
[2018-01-09] MEDS: ACETAMINOPHEN 325 MG TABLET PO PRN (02:31)
[2018-01-09] MEDS: IPRATROPIUM BROMIDE 0.5 MG/2.5 ML NEBU NEB SCH ×7 (02:37→22:44)
[2018-01-09 04:58] LABS: BASOPHILS # (AUTO) 0.1 K/uL (0.0-8.0); EOSINOPHILS # (AUTO) 0.2 K/uL (0.0-0.7)
[2018-01-09 04:59] LABS: EOSINOPHILS % (AUTO) 1.9 % (0.0-7.0); HEMATOCRIT 21.9 % (31.2-41.9); LYMPHOCYTES # (AUTO) 1.5 K/uL (20.0-40.0); LYMPHOCYTES % (AUTO) 14.5 % (20.5-51.5); MEAN CORPUSCULAR HEMOGLOBIN 29.1 uug (24.7-32.8); MEAN CORPUSCULAR HGB CONC 32 g/dL (32.3-35.6); MEAN CORPUSCULAR VOLUME 90.8 fL (75.5-95.3); MONOCYTES # (AUTO) 0.9 K/uL (2.0-10.0); MONOCYTES % (AUTO) 8.8 % (0.0-11.0); NEUTROPHILS # (AUTO) 7.9 K/uL (1.8-8.9); NEUTROPHILS % (AUTO) 73.8 % (38.5-71.5); PLATELET COUNT (AUTO) 253 K/uL (179-408); WHITE BLOOD COUNT (AUTO) 10.7 K/uL (3.8-11.8)
[2018-01-09 05:08] LABS: CARBON DIOXIDE 21 mmol/L (21-32); CHLORIDE 117 mmol/L (98-107); CREATININE 2.2 mg/dL (0.6-1.3); GLUCOSE 112 mg/dL (74-106); MAGNESIUM 2.1 mg/dL (1.8-2.4); PHOSPHOROUS 4.1 mg/dL (2.5-4.9); POTASSIUM 3.3 mmol/L (3.5-5.1); RED BLOOD CELL COUNT(AUTO) 2.41 MIL/uL (3.63-4.92); UREA NITROGEN, BLOOD 34 mg/dL (7-18)
[2018-01-09] MEDS: METRONIDAZOLE 500 MG/NS 100ML 500 MG in PREMIXED 1 EACH IV SCH ×3 (05:18→21:53)
[2018-01-09] MEDS: VANCOMYCIN FOR PO/GT/NG USE PO SCH ×4 (05:18→23:22)
[2018-01-09] MEDS: Z GUARD REMEDY PASTE 57 GM TUBE TOP PRN (05:18)
[2018-01-09] MEDS: PANTOPRAZOLE ORAL SUSPENSION 40 MG SUSPDR.PKT GT SCH (05:19)
[2018-01-09] MEDS: BLOOD SUGAR DIAGNOSTIC 1 EACH STRIP VI SCH ×4 (05:39→23:26)
[2018-01-09] MEDS ORDERED: POTASSIUM CHLORIDE 100 ML IV ONE (06:15)
[2018-01-09] MEDS ORDERED: POTASSIUM CHLORIDE 100 ML ONE (06:22)
[2018-01-09] MEDS: LEVOTHYROXINE SODIUM 75 MCG TABLET GT SCH (06:25)
[2018-01-09] MEDS ORDERED: POTASSIUM CHLORIDE 50 ML IV SCH (06:30)
[2018-01-09] MEDS: POTASSIUM CHLORIDE 50 ML IV SCH ×2 (06:32→07:46)
[2018-01-09] MEDS ORDERED: IOHEXOL-240 MG , 50 ML VIAL IV ONE (06:49)
[2018-01-09] MEDS: ALBUTEROL SULFATE 2.5 MG/3 ML NEBU IH PRN ×2 (07:24→13:57)
[2018-01-09] MEDS ORDERED: PROPOFOL 200 MG/20 ML BOTTLE IV ONE (07:47)
[2018-01-09] MEDS ORDERED: SEVOFLURANE 250 ML BOTTLE IH ONE (07:47)
[2018-01-09] MEDS ORDERED: IV NORMAL SALINE 1000 ML BAG IV ONE (07:47)
[2018-01-09] MEDS: METOPROLOL TARTRATE 25 MG TABLET GT SCH ×2 (08:41→20:42)
[2018-01-09] MEDS: AZTREONAM 0.5 G in IV NORMAL SALINE 50 ML IV SCH ×3 (09:00→21:07)
[2018-01-09] MEDS: AMIODARONE HCL 200 MG TABLET PO SCH ×2 (09:43→20:42)
[2018-01-09] MEDS: MICAFUNGIN SODIUM 100 MG in IV NORMAL SALINE 100 ML IV SCH ×2 (10:00→15:15)
[2018-01-09] MEDS ORDERED: FENTANYL CITRATE 100 MCG/2 ML AMPUL ONE (10:16)
[2018-01-09] MEDS ORDERED: METHYLENE BLUE 50 MG/10 ML AMPUL (0.5%) ONE (11:24)
[2018-01-09] MEDS: Z GUARD REMEDY PASTE 57 GM TUBE TOP SCH ×2 (12:12→20:42)
[2018-01-09] MEDS: CYANOCOBALAMIN 1,000 MCG TABLET GT SCH (13:20)
[2018-01-09] MEDS: ZINC SULFATE 220 MG CAPSULE GT SCH (13:21)
[2018-01-09] MEDS: ASCORBIC ACID 500 MG TABLET GT SCH ×2 (13:31→17:28)
[2018-01-09] MEDS: METOCLOPRAMIDE HCL 10 MG/2 ML VIAL IV SCH ×2 (13:36→21:07)
[2018-01-09] MEDS: NEPRO 1000 ML GT PRN (14:44)
[2018-01-09] MEDS: MORPHINE SULFATE 2 MG/1 ML DISP.SYRIN IV PRN (20:39)
[2018-01-09] MEDS: ATORVASTATIN 40 MG TABLET GT SCH (20:41)
[2018-01-10] VITALS (24 sets, daily range): BP systolic 90–130; BP diastolic 40–66
[2018-01-10] MEDS: IPRATROPIUM BROMIDE 0.5 MG/2.5 ML NEBU NEB SCH ×6 (02:32→23:32)
[2018-01-10] MEDS: MORPHINE SULFATE 2 MG/1 ML DISP.SYRIN IV PRN ×3 (02:57→14:45)
[2018-01-10] MEDS: IV D5W 1000ML 1,000 ML IV PRN (02:57)
[2018-01-10] MEDS ORDERED: MORPHINE SULFATE 2 MG/1 ML DISP.SYRIN ONE (02:59)
[2018-01-10 05:14] LABS: BASOPHILS # (AUTO) 0.1 K/uL (0.0-8.0); BASOPHILS % (AUTO) 0.6 % (0.0-2.0); EOSINOPHILS # (AUTO) 0.3 K/uL (0.0-0.7); EOSINOPHILS % (AUTO) 2.6 % (0.0-7.0); HEMATOCRIT 25.9 % (31.2-41.9); HEMOGLOBIN 8.4 g/dL (10.9-14.3); LYMPHOCYTES # (AUTO) 1.2 K/uL (20.0-40.0); LYMPHOCYTES % (AUTO) 11.6 % (20.5-51.5); MEAN CORPUSCULAR HEMOGLOBIN 29.3 uug (24.7-32.8); MEAN CORPUSCULAR HGB CONC 32 g/dL (32.3-35.6); MEAN CORPUSCULAR VOLUME 90.7 fL (75.5-95.3); MONOCYTES # (AUTO) 0.8 K/uL (2.0-10.0); NEUTROPHILS # (AUTO) 7.9 K/uL (1.8-8.9); NEUTROPHILS % (AUTO) 77.2 % (38.5-71.5); PLATELET COUNT (AUTO) 306 K/uL (179-408); RED BLOOD CELL COUNT(AUTO) 2.85 MIL/uL (3.63-4.92); WHITE BLOOD COUNT (AUTO) 10.3 K/uL (3.8-11.8)
[2018-01-10 05:32] LABS: CARBON DIOXIDE 19 mmol/L (21-32); CHLORIDE 118 mmol/L (98-107); CREATININE 2.2 mg/dL (0.6-1.3); GLUCOSE 159 mg/dL (74-106); PHOSPHOROUS 4.5 mg/dL (2.5-4.9); POTASSIUM 3.3 mmol/L (3.5-5.1); UREA NITROGEN, BLOOD 36 mg/dL (7-18)
[2018-01-10] MEDS: PANTOPRAZOLE ORAL SUSPENSION 40 MG SUSPDR.PKT GT SCH (05:45)
[2018-01-10] MEDS: METRONIDAZOLE 500 MG/NS 100ML 500 MG in PREMIXED 1 EACH IV SCH ×3 (05:45→21:34)
[2018-01-10] MEDS: VANCOMYCIN FOR PO/GT/NG USE PO SCH ×4 (05:45→23:27)
[2018-01-10] MEDS: Z GUARD REMEDY PASTE 57 GM TUBE TOP PRN (05:46)
[2018-01-10] MEDS: NEPRO 1000 ML GT PRN (05:47)
[2018-01-10] MEDS: BLOOD SUGAR DIAGNOSTIC 1 EACH STRIP VI SCH ×4 (06:00→23:35)
[2018-01-10] MEDS: LEVOTHYROXINE SODIUM 75 MCG TABLET GT SCH (06:00)
[2018-01-10] MEDS: ALBUTEROL SULFATE 2.5 MG/3 ML NEBU IH PRN ×5 (07:18→23:32)
[2018-01-10] MEDS: ZINC SULFATE 220 MG CAPSULE GT SCH (08:00)
[2018-01-10] MEDS: ASCORBIC ACID 500 MG TABLET GT SCH ×2 (08:00→16:28)
[2018-01-10] MEDS: AMIODARONE HCL 200 MG TABLET PO SCH ×2 (08:00→20:47)
[2018-01-10] MEDS: METOCLOPRAMIDE HCL 10 MG/2 ML VIAL IV SCH ×2 (08:00→20:46)
[2018-01-10] MEDS: CYANOCOBALAMIN 1,000 MCG TABLET GT SCH (08:00)
[2018-01-10] MEDS: Z GUARD REMEDY PASTE 57 GM TUBE TOP SCH ×2 (08:01→20:48)
[2018-01-10] MEDS: METOPROLOL TARTRATE 25 MG TABLET GT SCH ×2 (08:01→20:47)
[2018-01-10] MEDS: AZTREONAM 0.5 G in IV NORMAL SALINE 50 ML IV SCH ×2 (08:02→20:46)
[2018-01-10] MEDS: MICAFUNGIN SODIUM 100 MG in IV NORMAL SALINE 100 ML IV SCH (09:12)
[2018-01-10] MEDS: INSULIN REGULAR, HUMAN 300 UNIT/3 ML VIAL SQ PRN ×3 (12:55→23:37)
[2018-01-10] MEDS ORDERED: POTASSIUM CHLORIDE 50 ML IV SCH (15:15)
[2018-01-10] MEDS: ATORVASTATIN 40 MG TABLET GT SCH (20:46)
[2018-01-11] VITALS (23 sets, daily range): BP systolic 99–151; BP diastolic 53–88
[2018-01-11] MEDS: MORPHINE SULFATE 2 MG/1 ML DISP.SYRIN IV PRN ×2 (01:33→19:58)
[2018-01-11] MEDS: IV D5W 1000ML 1,000 ML IV PRN (03:27)
[2018-01-11] MEDS: IPRATROPIUM BROMIDE 0.5 MG/2.5 ML NEBU NEB SCH ×6 (03:48→23:15)
[2018-01-11] MEDS: ALBUTEROL SULFATE 2.5 MG/3 ML NEBU IH PRN ×4 (03:49→23:15)
[2018-01-11 05:10] LABS: ALANINE AMINOTRANSFERASE 13 U/L (14-59); ALKALINE PHOSPHATASE 104 U/L (50-136); ASPARTATE AMINOTRANSFERASE 11 U/L (15-37); BILIRUBIN,TOTAL 0.2 mg/dL (0.2-1.0); CARBON DIOXIDE 22 mmol/L (21-32); CHLORIDE 116 mmol/L (98-107); CREATININE 2.2 mg/dL (0.6-1.3); GLUCOSE 198 mg/dL (74-106); MAGNESIUM 1.9 mg/dL (1.8-2.4); PHOSPHOROUS 4.2 mg/dL (2.5-4.9); POTASSIUM 3.2 mmol/L (3.5-5.1); TOTAL PROTEIN, SERUM 4.9 g/dL (6.4-8.2); UREA NITROGEN, BLOOD 33 mg/dL (7-18)
[2018-01-11 05:18] LABS: EOSINOPHILS # (AUTO) 0.3 K/uL (0.0-0.7); EOSINOPHILS % (AUTO) 3.3 % (0.0-7.0); HEMATOCRIT 22.7 % (31.2-41.9)
[2018-01-11 05:20] LABS: BASOPHILS % (AUTO) 0.4 % (0.0-2.0); LYMPHOCYTES % (AUTO) 12.1 % (20.5-51.5); MEAN CORPUSCULAR HEMOGLOBIN 29.5 uug (24.7-32.8); MEAN CORPUSCULAR HGB CONC 32 g/dL (32.3-35.6); MEAN CORPUSCULAR VOLUME 91.3 fL (75.5-95.3); MONOCYTES # (AUTO) 0.8 K/uL (2.0-10.0); MONOCYTES % (AUTO) 9.2 % (0.0-11.0); NEUTROPHILS # (AUTO) 6.4 K/uL (1.8-8.9); PLATELET COUNT (AUTO) 287 K/uL (179-408); WHITE BLOOD COUNT (AUTO) 8.5 K/uL (3.8-11.8)
[2018-01-11 05:23] LABS: HEMOGLOBIN 7.3 g/dL (10.9-14.3); RED BLOOD CELL COUNT(AUTO) 2.48 MIL/uL (3.63-4.92)
[2018-01-11] MEDS: BLOOD SUGAR DIAGNOSTIC 1 EACH STRIP VI SCH ×3 (05:34→18:04)
[2018-01-11] MEDS: VANCOMYCIN FOR PO/GT/NG USE PO SCH ×3 (05:35→18:06)
[2018-01-11] MEDS: PANTOPRAZOLE ORAL SUSPENSION 40 MG SUSPDR.PKT GT SCH (05:36)
[2018-01-11] MEDS: INSULIN REGULAR, HUMAN 300 UNIT/3 ML VIAL SQ PRN ×3 (05:39→18:06)
[2018-01-11] MEDS: METRONIDAZOLE 500 MG/NS 100ML 500 MG in PREMIXED 1 EACH IV SCH ×2 (05:41→14:19)
[2018-01-11] MEDS: LEVOTHYROXINE SODIUM 75 MCG TABLET GT SCH (06:30)
[2018-01-11] MEDS: CYANOCOBALAMIN 1,000 MCG TABLET GT SCH (08:31)
[2018-01-11] MEDS: ZINC SULFATE 220 MG CAPSULE GT SCH (08:31)
[2018-01-11] MEDS: ASCORBIC ACID 500 MG TABLET GT SCH ×2 (08:31→17:07)
[2018-01-11] MEDS: METOCLOPRAMIDE HCL 10 MG/2 ML VIAL IV SCH ×2 (08:31→20:01)
[2018-01-11] MEDS: METOPROLOL TARTRATE 25 MG TABLET GT SCH ×2 (08:32→20:00)
[2018-01-11] MEDS: AMIODARONE HCL 200 MG TABLET PO SCH ×2 (08:32→20:01)
[2018-01-11] MEDS: Z GUARD REMEDY PASTE 57 GM TUBE TOP SCH ×2 (08:32→20:01)
[2018-01-11] MEDS: NEPRO 1000 ML GT PRN (08:33)
[2018-01-11] MEDS: AZTREONAM 0.5 G in IV NORMAL SALINE 50 ML IV SCH (08:35)
[2018-01-11] MEDS: MICAFUNGIN SODIUM 100 MG in IV NORMAL SALINE 100 ML IV SCH (10:03)
[2018-01-11 16:21] LABS: BASOPHILS % (AUTO) 0.3 % (0.0-2.0); EOSINOPHILS # (AUTO) 0.2 K/uL (0.0-0.7); EOSINOPHILS % (AUTO) 2.4 % (0.0-7.0); HEMATOCRIT 22.4 % (31.2-41.9); LYMPHOCYTES # (AUTO) 0.7 K/uL (20.0-40.0); LYMPHOCYTES % (AUTO) 7.1 % (20.5-51.5); MEAN CORPUSCULAR HEMOGLOBIN 29.3 uug (24.7-32.8); MEAN CORPUSCULAR HGB CONC 31 g/dL (32.3-35.6); MEAN CORPUSCULAR VOLUME 93.9 fL (75.5-95.3); MONOCYTES # (AUTO) 0.9 K/uL (2.0-10.0); MONOCYTES % (AUTO) 8.8 % (0.0-11.0); NEUTROPHILS # (AUTO) 7.9 K/uL (1.8-8.9); NEUTROPHILS % (AUTO) 81.4 % (38.5-71.5); PLATELET COUNT (AUTO) 275 K/uL (179-408); RED BLOOD CELL COUNT(AUTO) 2.39 MIL/uL (3.63-4.92); WHITE BLOOD COUNT (AUTO) 9.7 K/uL (3.8-11.8)
[2018-01-11] MEDS: POTASSIUM CHLORIDE 50 ML IV SCH ×3 (17:07→19:00)
[2018-01-11] MEDS: ATORVASTATIN 40 MG TABLET GT SCH (20:00)
[2018-01-12] VITALS (24 sets, daily range): BP systolic 98–142; BP diastolic 47–76
[2018-01-12] MEDS: BLOOD SUGAR DIAGNOSTIC 1 EACH STRIP VI SCH ×5 (00:23→23:53)
[2018-01-12] MEDS: VANCOMYCIN FOR PO/GT/NG USE PO SCH ×5 (00:23→23:53)
[2018-01-12] MEDS: MORPHINE SULFATE 2 MG/1 ML DISP.SYRIN IV PRN ×2 (00:24→15:27)
[2018-01-12] MEDS: INSULIN REGULAR, HUMAN 300 UNIT/3 ML VIAL SQ PRN ×4 (00:26→23:56)
[2018-01-12] MEDS: ALBUTEROL SULFATE 2.5 MG/3 ML NEBU IH PRN ×4 (04:51→19:38)
[2018-01-12] MEDS: IPRATROPIUM BROMIDE 0.5 MG/2.5 ML NEBU NEB SCH ×6 (04:51→23:17)
[2018-01-12 05:01] LABS: EOSINOPHILS # (AUTO) 0.2 K/uL (0.0-0.7); LYMPHOCYTES # (AUTO) 1.3 K/uL (20.0-40.0); MONOCYTES # (AUTO) 0.8 K/uL (2.0-10.0)
[2018-01-12 05:05] LABS: BASOPHILS % (AUTO) 0.4 % (0.0-2.0); EOSINOPHILS % (AUTO) 2.7 % (0.0-7.0); HEMATOCRIT 22.1 % (31.2-41.9); LYMPHOCYTES % (AUTO) 14.7 % (20.5-51.5); MEAN CORPUSCULAR HEMOGLOBIN 29.6 uug (24.7-32.8); MEAN CORPUSCULAR HGB CONC 33 g/dL (32.3-35.6); MEAN CORPUSCULAR VOLUME 90.9 fL (75.5-95.3); NEUTROPHILS # (AUTO) 6.6 K/uL (1.8-8.9); NEUTROPHILS % (AUTO) 73.2 % (38.5-71.5); PLATELET COUNT (AUTO) 317 K/uL (179-408); WHITE BLOOD COUNT (AUTO) 9.1 K/uL (3.8-11.8)
[2018-01-12 05:09] LABS: ALANINE AMINOTRANSFERASE 12 U/L (14-59); ALKALINE PHOSPHATASE 97 U/L (50-136); ASPARTATE AMINOTRANSFERASE 9 U/L (15-37); BILIRUBIN,TOTAL 0.2 mg/dL (0.2-1.0); CARBON DIOXIDE 21 mmol/L (21-32); CHLORIDE 111 mmol/L (98-107); CREATININE 2.6 mg/dL (0.6-1.3); GLUCOSE 243 mg/dL (74-106); MAGNESIUM 1.8 mg/dL (1.8-2.4); PHOSPHOROUS 3.9 mg/dL (2.5-4.9); POTASSIUM 3.5 mmol/L (3.5-5.1); RED BLOOD CELL COUNT(AUTO) 2.44 MIL/uL (3.63-4.92); TOTAL PROTEIN, SERUM 5.2 g/dL (6.4-8.2); UREA NITROGEN, BLOOD 36 mg/dL (7-18)
[2018-01-12] MEDS: PANTOPRAZOLE ORAL SUSPENSION 40 MG SUSPDR.PKT GT SCH (05:14)
[2018-01-12 05:15] LABS: HEMOGLOBIN 7.2 g/dL (10.9-14.3)
[2018-01-12 05:32] LABS: BAND % (MANUAL) 1 % (0-10); BASOPHILS % (MANUAL) 1 % (0-2); EOSINOPHILS % (MANUAL) 2 % (0-8); LYMPHOCYTES % (MANUAL) 23 % (20-40); MONOCYTES % (MANUAL) 6 % (2-10); NEUTROPHILS % (MANUAL) 67 % (42-75)
[2018-01-12] MEDS: LEVOTHYROXINE SODIUM 75 MCG TABLET GT SCH (06:02)
[2018-01-12] MEDS: IV D5W 1000ML 1,000 ML IV PRN (07:36)
[2018-01-12] MEDS: AMIODARONE HCL 200 MG TABLET PO SCH ×2 (08:39→20:23)
[2018-01-12] MEDS: ZINC SULFATE 220 MG CAPSULE GT SCH (08:39)
[2018-01-12] MEDS: CYANOCOBALAMIN 1,000 MCG TABLET GT SCH (08:39)
[2018-01-12] MEDS: ASCORBIC ACID 500 MG TABLET GT SCH ×2 (08:39→18:00)
[2018-01-12] MEDS: METOPROLOL TARTRATE 25 MG TABLET GT SCH ×2 (08:40→20:23)
[2018-01-12] MEDS: METOCLOPRAMIDE HCL 10 MG/2 ML VIAL IV SCH ×2 (08:40→20:23)
[2018-01-12] MEDS: NEPRO 1000 ML GT PRN (08:40)
[2018-01-12] MEDS: Z GUARD REMEDY PASTE 57 GM TUBE TOP SCH ×2 (09:01→20:24)
[2018-01-12] MEDS: MICAFUNGIN SODIUM 100 MG in IV NORMAL SALINE 100 ML IV SCH (10:49)
[2018-01-12] MEDS: ATORVASTATIN 40 MG TABLET GT SCH (20:23)
[2018-01-12] MEDS: NORMAL SALINE FLUSH 10 ML DISP.SYRIN IV SCH (22:39)
[2018-01-13] VITALS (33 sets, daily range): BP systolic 109–157; BP diastolic 56–101
[2018-01-13] MEDS: ACETAMINOPHEN 325 MG TABLET PO PRN ×2 (00:02→19:53)
[2018-01-13] MEDS: MORPHINE SULFATE 2 MG/1 ML DISP.SYRIN IV PRN (02:02)
[2018-01-13] MEDS: ALBUTEROL SULFATE 2.5 MG/3 ML NEBU IH PRN ×2 (02:31→20:11)
[2018-01-13] MEDS: IPRATROPIUM BROMIDE 0.5 MG/2.5 ML NEBU NEB SCH ×6 (02:31→23:30)
[2018-01-13] MEDS: IV D5W 1000ML 1,000 ML IV PRN (03:28)
[2018-01-13 05:17] LABS: EOSINOPHILS # (AUTO) 0.3 K/uL (0.0-0.7); LYMPHOCYTES % (AUTO) 12.1 % (20.5-51.5); MONOCYTES # (AUTO) 0.6 K/uL (2.0-10.0)
[2018-01-13] MEDS: PANTOPRAZOLE ORAL SUSPENSION 40 MG SUSPDR.PKT GT SCH (05:17)
[2018-01-13] MEDS: VANCOMYCIN FOR PO/GT/NG USE PO SCH ×3 (05:17→17:43)
[2018-01-13] MEDS: NORMAL SALINE FLUSH 10 ML DISP.SYRIN IV SCH ×3 (05:17→21:19)
[2018-01-13 05:19] LABS: BASOPHILS % (AUTO) 0.5 % (0.0-2.0); EOSINOPHILS % (AUTO) 4.2 % (0.0-7.0); MEAN CORPUSCULAR HEMOGLOBIN 29.9 uug (24.7-32.8); MEAN CORPUSCULAR HGB CONC 33 g/dL (32.3-35.6); MEAN CORPUSCULAR VOLUME 91.8 fL (75.5-95.3); NEUTROPHILS % (AUTO) 75.2 % (38.5-71.5); PLATELET COUNT (AUTO) 291 K/uL (179-408)
[2018-01-13] MEDS: BLOOD SUGAR DIAGNOSTIC 1 EACH STRIP VI SCH ×3 (05:21→17:50)
[2018-01-13] MEDS: INSULIN REGULAR, HUMAN 300 UNIT/3 ML VIAL SQ PRN ×4 (05:24→23:22)
[2018-01-13 05:30] LABS: RED BLOOD CELL COUNT(AUTO) 2.21 MIL/uL (3.63-4.92)
[2018-01-13 05:32] LABS: HEMATOCRIT 20.3 % (31.2-41.9); HEMOGLOBIN 6.6 g/dL (10.9-14.3)
[2018-01-13 05:39] LABS: CARBON DIOXIDE 20 mmol/L (21-32); CHLORIDE 111 mmol/L (98-107); CREATININE 2.8 mg/dL (0.6-1.3); GLUCOSE 214 mg/dL (74-106); MAGNESIUM 1.7 mg/dL (1.8-2.4); PHOSPHOROUS 4.3 mg/dL (2.5-4.9); POTASSIUM 3.3 mmol/L (3.5-5.1); UREA NITROGEN, BLOOD 40 mg/dL (7-18)
[2018-01-13] MEDS: LEVOTHYROXINE SODIUM 75 MCG TABLET GT SCH (06:07)
[2018-01-13] MEDS: NEPRO 1000 ML GT PRN (08:08)
[2018-01-13] MEDS: METOCLOPRAMIDE HCL 10 MG/2 ML VIAL IV SCH ×2 (08:50→20:26)
[2018-01-13] MEDS: CYANOCOBALAMIN 1,000 MCG TABLET GT SCH (08:50)
[2018-01-13] MEDS: AMIODARONE HCL 200 MG TABLET PO SCH ×2 (08:50→20:25)
[2018-01-13] MEDS: ZINC SULFATE 220 MG CAPSULE GT SCH (08:50)
[2018-01-13] MEDS: Z GUARD REMEDY PASTE 57 GM TUBE TOP SCH ×2 (08:51→20:25)
[2018-01-13] MEDS: ASCORBIC ACID 500 MG TABLET GT SCH ×2 (08:51→17:43)
[2018-01-13] MEDS: METOPROLOL TARTRATE 25 MG TABLET GT SCH ×2 (08:51→20:25)
[2018-01-13] MEDS: MICAFUNGIN SODIUM 100 MG in IV NORMAL SALINE 100 ML IV SCH (10:08)
[2018-01-13] MEDS ORDERED: MAGNESIUM SULFATE/D5W 100 ML IV SCH (11:45)
[2018-01-13] MEDS: POTASSIUM CHLORIDE 50 ML IV SCH ×2 (11:55→12:51)
[2018-01-13] MEDS: ATORVASTATIN 40 MG TABLET GT SCH (20:25)
[2018-01-14] VITALS (16 sets, daily range): BP systolic 120–161; BP diastolic 40–99
[2018-01-14] MEDS: MORPHINE SULFATE 2 MG/1 ML DISP.SYRIN IV PRN ×2 (00:11→18:56)
[2018-01-14] MEDS: VANCOMYCIN FOR PO/GT/NG USE PO SCH ×5 (00:11→23:48)
[2018-01-14] MEDS: BLOOD SUGAR DIAGNOSTIC 1 EACH STRIP VI SCH ×5 (00:11→23:48)
[2018-01-14] MEDS: IPRATROPIUM BROMIDE 0.5 MG/2.5 ML NEBU NEB SCH ×6 (03:25→23:06)
[2018-01-14] MEDS: PANTOPRAZOLE ORAL SUSPENSION 40 MG SUSPDR.PKT GT SCH (05:27)
[2018-01-14] MEDS: NORMAL SALINE FLUSH 10 ML DISP.SYRIN IV SCH ×3 (05:28→22:17)
[2018-01-14 06:02] LABS: BASOPHILS % (AUTO) 0.4 % (0.0-2.0); EOSINOPHILS # (AUTO) 0.6 K/uL (0.0-0.7); EOSINOPHILS % (AUTO) 5.8 % (0.0-7.0); HEMOGLOBIN 10.3 g/dL (10.9-14.3); LYMPHOCYTES # (AUTO) 1.2 K/uL (20.0-40.0); LYMPHOCYTES % (AUTO) 12.3 % (20.5-51.5); MEAN CORPUSCULAR HEMOGLOBIN 30.2 uug (24.7-32.8); MEAN CORPUSCULAR HGB CONC 33 g/dL (32.3-35.6); MEAN CORPUSCULAR VOLUME 90.7 fL (75.5-95.3); MONOCYTES # (AUTO) 0.7 K/uL (2.0-10.0); MONOCYTES % (AUTO) 6.6 % (0.0-11.0); NEUTROPHILS # (AUTO) 7.5 K/uL (1.8-8.9); NEUTROPHILS % (AUTO) 74.9 % (38.5-71.5); PLATELET COUNT (AUTO) 354 K/uL (179-408); RED BLOOD CELL COUNT(AUTO) 3.41 MIL/uL (3.63-4.92); WHITE BLOOD COUNT (AUTO) 9.9 K/uL (3.8-11.8)
[2018-01-14 06:19] LABS: ALANINE AMINOTRANSFERASE 13 U/L (14-59); ALKALINE PHOSPHATASE 118 U/L (50-136); ASPARTATE AMINOTRANSFERASE 12 U/L (15-37); BILIRUBIN,TOTAL 0.3 mg/dL (0.2-1.0); CARBON DIOXIDE 19 mmol/L (21-32); CHLORIDE 114 mmol/L (98-107); CREATININE 2.6 mg/dL (0.6-1.3); GLUCOSE 144 mg/dL (74-106); MAGNESIUM 2.1 mg/dL (1.8-2.4); PHOSPHOROUS 4.1 mg/dL (2.5-4.9); POTASSIUM 3.7 mmol/L (3.5-5.1); TOTAL PROTEIN, SERUM 5.6 g/dL (6.4-8.2); UREA NITROGEN, BLOOD 44 mg/dL (7-18)
[2018-01-14] MEDS: LEVOTHYROXINE SODIUM 75 MCG TABLET GT SCH (06:40)
[2018-01-14] MEDS: ALBUTEROL SULFATE 2.5 MG/3 ML NEBU IH PRN ×2 (07:22→11:52)
[2018-01-14] MEDS: ZINC SULFATE 220 MG CAPSULE GT SCH (08:48)
[2018-01-14] MEDS: AMIODARONE HCL 200 MG TABLET PO SCH ×2 (08:48→21:30)
[2018-01-14] MEDS: ASCORBIC ACID 500 MG TABLET GT SCH ×2 (08:48→17:40)
[2018-01-14] MEDS: CYANOCOBALAMIN 1,000 MCG TABLET GT SCH (08:49)
[2018-01-14] MEDS: Z GUARD REMEDY PASTE 57 GM TUBE TOP SCH ×2 (08:49→21:31)
[2018-01-14] MEDS: METOCLOPRAMIDE HCL 10 MG/2 ML VIAL IV SCH ×2 (08:49→21:31)
[2018-01-14] MEDS: METOPROLOL TARTRATE 25 MG TABLET GT SCH ×2 (08:49→21:31)
[2018-01-14] MEDS: MICAFUNGIN SODIUM 100 MG in IV NORMAL SALINE 100 ML IV SCH (09:03)
[2018-01-14] MEDS: NEPRO 1000 ML GT PRN (09:05)
[2018-01-14] MEDS: INSULIN REGULAR, HUMAN 300 UNIT/3 ML VIAL SQ PRN ×3 (13:07→23:49)
[2018-01-14] MEDS: IV D5W 1000ML 1,000 ML IV PRN (18:09)
[2018-01-14] MEDS: ATORVASTATIN 40 MG TABLET GT SCH (21:30)
[2018-01-14] MEDS: ZOLPIDEM 5 MG TABLET GT PRN (21:35)
[2018-01-15] VITALS: BP 150/86
[2018-01-15] MEDS: IPRATROPIUM BROMIDE 0.5 MG/2.5 ML NEBU NEB SCH ×6 (02:37→23:40)
[2018-01-15 04:00] VITALS: BP 148/75
[2018-01-15] MEDS: PANTOPRAZOLE ORAL SUSPENSION 40 MG SUSPDR.PKT GT SCH (05:37)
[2018-01-15] MEDS: VANCOMYCIN FOR PO/GT/NG USE PO SCH ×4 (05:37→23:17)
[2018-01-15] MEDS: BLOOD SUGAR DIAGNOSTIC 1 EACH STRIP VI SCH ×4 (05:52→23:17)
[2018-01-15] MEDS: NORMAL SALINE FLUSH 10 ML DISP.SYRIN IV SCH ×3 (05:53→22:43)
[2018-01-15 06:24] LABS: BASOPHILS # (AUTO) 0.1 K/uL (0.0-8.0); BASOPHILS % (AUTO) 0.6 % (0.0-2.0); EOSINOPHILS # (AUTO) 0.3 K/uL (0.0-0.7); EOSINOPHILS % (AUTO) 2.8 % (0.0-7.0); HEMATOCRIT 32.7 % (31.2-41.9); HEMOGLOBIN 10.7 g/dL (10.9-14.3); LYMPHOCYTES # (AUTO) 0.9 K/uL (20.0-40.0); LYMPHOCYTES % (AUTO) 8.8 % (20.5-51.5); MEAN CORPUSCULAR HEMOGLOBIN 30.4 uug (24.7-32.8); MEAN CORPUSCULAR HGB CONC 33 g/dL (32.3-35.6); MEAN CORPUSCULAR VOLUME 92.8 fL (75.5-95.3); MONOCYTES # (AUTO) 0.8 K/uL (2.0-10.0); MONOCYTES % (AUTO) 8.1 % (0.0-11.0); NEUTROPHILS # (AUTO) 8.3 K/uL (1.8-8.9); NEUTROPHILS % (AUTO) 79.7 % (38.5-71.5); PLATELET COUNT (AUTO) 427 K/uL (179-408); RED BLOOD CELL COUNT(AUTO) 3.53 MIL/uL (3.63-4.92); WHITE BLOOD COUNT (AUTO) 10.4 K/uL (3.8-11.8)
[2018-01-15] MEDS: LEVOTHYROXINE SODIUM 75 MCG TABLET GT SCH (06:25)
[2018-01-15 06:37] LABS: CARBON DIOXIDE 20 mmol/L (21-32); CHLORIDE 113 mmol/L (98-107); CREATININE 2.8 mg/dL (0.6-1.3); POTASSIUM 3.6 mmol/L (3.5-5.1); UREA NITROGEN, BLOOD 47 mg/dL (7-18)
[2018-01-15 06:41] LABS: GLUCOSE 305 mg/dL (74-106)
[2018-01-15] MEDS: ALBUTEROL SULFATE 2.5 MG/3 ML NEBU IH PRN ×5 (07:16→23:40)
[2018-01-15] MEDS: ASCORBIC ACID 500 MG TABLET GT SCH ×2 (09:47→17:51)
[2018-01-15] MEDS: ZINC SULFATE 220 MG CAPSULE GT SCH (09:47)
[2018-01-15] MEDS: METOCLOPRAMIDE HCL 10 MG/2 ML VIAL IV SCH ×2 (09:47→20:32)
[2018-01-15] MEDS: METOPROLOL TARTRATE 25 MG TABLET GT SCH ×2 (09:47→20:34)
[2018-01-15] MEDS: CYANOCOBALAMIN 1,000 MCG TABLET GT SCH (09:47)
[2018-01-15] MEDS: MICAFUNGIN SODIUM 100 MG in IV NORMAL SALINE 100 ML IV SCH (09:48)
[2018-01-15] MEDS: AMIODARONE HCL 200 MG TABLET PO SCH ×2 (09:48→20:32)
[2018-01-15] MEDS: Z GUARD REMEDY PASTE 57 GM TUBE TOP SCH ×2 (09:51→20:34)
[2018-01-15] MEDS: INSULIN REGULAR, HUMAN 300 UNIT/3 ML VIAL SQ PRN ×4 (10:02→23:20)
[2018-01-15] MEDS: NEPRO 1000 ML GT PRN (10:17)
[2018-01-15 11:06] VITALS: BP 122/72
[2018-01-15 15:15] VITALS: BP 145/75
[2018-01-15 20:20] VITALS: BP 135/62
[2018-01-15] MEDS: ATORVASTATIN 40 MG TABLET GT SCH (20:31)
[2018-01-16] MEDS: IPRATROPIUM BROMIDE 0.5 MG/2.5 ML NEBU NEB SCH ×6 (02:35→23:06)
[2018-01-16 04:00] VITALS: BP_SYST 134; BP_SYST 164; BP_DIAS 66
[2018-01-16] MEDS: PANTOPRAZOLE ORAL SUSPENSION 40 MG SUSPDR.PKT GT SCH (05:13)
[2018-01-16] MEDS: NORMAL SALINE FLUSH 10 ML DISP.SYRIN IV SCH ×3 (05:13→23:13)
[2018-01-16] MEDS: VANCOMYCIN FOR PO/GT/NG USE PO SCH ×4 (05:14→23:31)
[2018-01-16] MEDS: BLOOD SUGAR DIAGNOSTIC 1 EACH STRIP VI SCH ×4 (05:16→23:25)
[2018-01-16] MEDS: INSULIN REGULAR, HUMAN 300 UNIT/3 ML VIAL SQ PRN ×4 (05:19→23:28)
[2018-01-16] MEDS: LEVOTHYROXINE SODIUM 75 MCG TABLET GT SCH (06:27)
[2018-01-16 06:42] LABS: BASOPHILS # (AUTO) 0.1 K/uL (0.0-8.0); BASOPHILS % (AUTO) 0.5 % (0.0-2.0); EOSINOPHILS % (AUTO) 0.1 % (0.0-7.0); HEMOGLOBIN 9.1 g/dL (10.9-14.3); LYMPHOCYTES # (AUTO) 0.4 K/uL (20.0-40.0); LYMPHOCYTES % (AUTO) 2.4 % (20.5-51.5); MEAN CORPUSCULAR HEMOGLOBIN 30.1 uug (24.7-32.8); MEAN CORPUSCULAR HGB CONC 33 g/dL (32.3-35.6); MEAN CORPUSCULAR VOLUME 92.5 fL (75.5-95.3); MONOCYTES # (AUTO) 1.3 K/uL (2.0-10.0); MONOCYTES % (AUTO) 8.6 % (0.0-11.0); NEUTROPHILS # (AUTO) 13.1 K/uL (1.8-8.9); NEUTROPHILS % (AUTO) 88.4 % (38.5-71.5); PLATELET COUNT (AUTO) 360 K/uL (179-408); RED BLOOD CELL COUNT(AUTO) 3.03 MIL/uL (3.63-4.92); WHITE BLOOD COUNT (AUTO) 14.8 K/uL (3.8-11.8)
[2018-01-16 07:00] LABS: CARBON DIOXIDE 21 mmol/L (21-32); CHLORIDE 108 mmol/L (98-107); CREATININE 3.3 mg/dL (0.6-1.3); GLUCOSE 269 mg/dL (74-106); PHOSPHOROUS 3.5 mg/dL (2.5-4.9); POTASSIUM 3.5 mmol/L (3.5-5.1); UREA NITROGEN, BLOOD 56 mg/dL (7-18)
[2018-01-16] MEDS: ALBUTEROL SULFATE 2.5 MG/3 ML NEBU IH PRN ×4 (07:35→23:06)
[2018-01-16] MEDS: ZINC SULFATE 220 MG CAPSULE GT SCH (08:47)
[2018-01-16] MEDS: ACETAMINOPHEN 325 MG TABLET PO PRN (08:47)
[2018-01-16] MEDS: ASCORBIC ACID 500 MG TABLET GT SCH ×2 (08:47→17:45)
[2018-01-16] MEDS: METOCLOPRAMIDE HCL 10 MG/2 ML VIAL IV SCH ×2 (08:47→20:17)
[2018-01-16] MEDS: CYANOCOBALAMIN 1,000 MCG TABLET GT SCH (08:48)
[2018-01-16] MEDS: METOPROLOL TARTRATE 25 MG TABLET GT SCH ×2 (08:48→20:18)
[2018-01-16] MEDS: AMIODARONE HCL 200 MG TABLET PO SCH ×2 (08:48→20:19)
[2018-01-16] MEDS: Z GUARD REMEDY PASTE 57 GM TUBE TOP SCH ×2 (08:49→20:20)
[2018-01-16] MEDS: MICAFUNGIN SODIUM 100 MG in IV NORMAL SALINE 100 ML IV SCH (10:03)
[2018-01-16] MEDS: NEPRO 1000 ML GT PRN (10:04)
[2018-01-16 11:35] VITALS: BP 132/66
[2018-01-16 16:00] VITALS: BP 120/68
[2018-01-16 17:19] LABS: *CLARITY,URINE BLOODY (CLEAR); *COLOR,URINE RED (YELLOW)
[2018-01-16 17:21] LABS: *BILIRUBIN,URIN NEGATIVE (NEGATIVE); *BLOOD, URINE 4+ (NEGATIVE); *KETONES,URINE NEGATIVE (NEGATIVE); *PROTEIN,URINE 2+ (NEGATIVE); UGLUCOSE 1+ (NEGATIVE)
[2018-01-16 17:22] LABS: *UROBILINOGEN,URINE 0.2 E.U./dl (NORMAL); LEUKOCYTE ESTERASE ,URINE 2+ (NEGATIVE); NITRITE, URINE NEGATIVE (NEGATIVE)
[2018-01-16 17:24] LABS: RBC,URINE TNTC /HPF (0-3)
[2018-01-16 17:25] LABS: WBC,URINE 80-100 /HPF (0-3)
[2018-01-16 20:11] VITALS: BP 132/53
[2018-01-16] MEDS: ATORVASTATIN 40 MG TABLET GT SCH (20:17)
[2018-01-16] MEDS: MORPHINE SULFATE 2 MG/1 ML DISP.SYRIN IV PRN (20:21)
[2018-01-16 20:37] LABS: *CREATININE,URINE < 13.0 mg/dL (30-125); *URINE TOTAL PROTEIN RANDOM 336.6 mg/dL (<150/24HR)
[2018-01-17] MEDS: IPRATROPIUM BROMIDE 0.5 MG/2.5 ML NEBU NEB SCH ×6 (03:32→22:49)
[2018-01-17 04:43] VITALS: BP 141/57
[2018-01-17] MEDS: VANCOMYCIN FOR PO/GT/NG USE PO SCH ×4 (05:55→23:11)
[2018-01-17] MEDS: PANTOPRAZOLE ORAL SUSPENSION 40 MG SUSPDR.PKT GT SCH (05:55)
[2018-01-17] MEDS: BLOOD SUGAR DIAGNOSTIC 1 EACH STRIP VI SCH ×4 (06:04→23:11)
[2018-01-17] MEDS: INSULIN REGULAR, HUMAN 300 UNIT/3 ML VIAL SQ PRN ×3 (06:05→18:02)
[2018-01-17] MEDS: NORMAL SALINE FLUSH 10 ML DISP.SYRIN IV SCH ×3 (06:07→21:02)
[2018-01-17] MEDS: LEVOTHYROXINE SODIUM 75 MCG TABLET GT SCH (06:07)
[2018-01-17 06:18] LABS: BASOPHILS # (AUTO) 0.1 K/uL (0.0-8.0); BASOPHILS % (AUTO) 0.5 % (0.0-2.0); EOSINOPHILS # (AUTO) 0.3 K/uL (0.0-0.7); EOSINOPHILS % (AUTO) 2.6 % (0.0-7.0); HEMATOCRIT 26.2 % (31.2-41.9); HEMOGLOBIN 8.7 g/dL (10.9-14.3); LYMPHOCYTES # (AUTO) 0.6 K/uL (20.0-40.0); LYMPHOCYTES % (AUTO) 5.3 % (20.5-51.5); MEAN CORPUSCULAR HEMOGLOBIN 30.6 uug (24.7-32.8); MEAN CORPUSCULAR HGB CONC 33 g/dL (32.3-35.6); MEAN CORPUSCULAR VOLUME 91.8 fL (75.5-95.3); MONOCYTES # (AUTO) 1.1 K/uL (2.0-10.0); NEUTROPHILS # (AUTO) 9.3 K/uL (1.8-8.9); NEUTROPHILS % (AUTO) 81.6 % (38.5-71.5); PLATELET COUNT (AUTO) 355 K/uL (179-408); RED BLOOD CELL COUNT(AUTO) 2.86 MIL/uL (3.63-4.92); WHITE BLOOD COUNT (AUTO) 11.5 K/uL (3.8-11.8)
[2018-01-17 06:42] LABS: ALANINE AMINOTRANSFERASE 12 U/L (14-59); ALKALINE PHOSPHATASE 95 U/L (50-136); ASPARTATE AMINOTRANSFERASE 13 U/L (15-37); BILIRUBIN,TOTAL 0.3 mg/dL (0.2-1.0); CARBON DIOXIDE 20 mmol/L (21-32); CHLORIDE 109 mmol/L (98-107); CREATININE 3.2 mg/dL (0.6-1.3); GLUCOSE 167 mg/dL (74-106); PHOSPHOROUS 4.4 mg/dL (2.5-4.9); POTASSIUM 3.4 mmol/L (3.5-5.1); TOTAL PROTEIN, SERUM 5.7 g/dL (6.4-8.2); UREA NITROGEN, BLOOD 61 mg/dL (7-18)
[2018-01-17] MEDS: ALBUTEROL SULFATE 2.5 MG/3 ML NEBU IH PRN ×4 (07:16→18:44)
[2018-01-17] MEDS ORDERED: FAMOTIDINE. 20 MG/2 ML VIAL IV SCH (09:00)
[2018-01-17] MEDS: Z GUARD REMEDY PASTE 57 GM TUBE TOP SCH ×2 (09:00→20:51)
[2018-01-17] MEDS: ZINC SULFATE 220 MG CAPSULE GT SCH (10:21)
[2018-01-17] MEDS: FUROSEMIDE 40 MG/4 ML VIAL IV SCH (10:21)
[2018-01-17] MEDS: ASCORBIC ACID 500 MG TABLET GT SCH ×2 (10:21→17:59)
[2018-01-17] MEDS: AMIODARONE HCL 200 MG TABLET PO SCH ×2 (10:21→20:50)
[2018-01-17] MEDS: METOCLOPRAMIDE HCL 10 MG/2 ML VIAL IV SCH ×2 (10:21→20:50)
[2018-01-17] MEDS: CYANOCOBALAMIN 1,000 MCG TABLET GT SCH (10:22)
[2018-01-17] MEDS: METOPROLOL TARTRATE 25 MG TABLET GT SCH ×2 (10:22→20:50)
[2018-01-17 11:43] VITALS: BP 126/53
[2018-01-17] MEDS: MEROPENEM 500 MG in IV NORMAL SALINE 50 ML IV SCH (14:16)
[2018-01-17 15:27] VITALS: BP 127/77
[2018-01-17 19:46] VITALS: BP 149/67
[2018-01-17] MEDS: ATORVASTATIN 40 MG TABLET GT SCH (20:50)
[2018-01-18] MEDS: MEROPENEM 500 MG in IV NORMAL SALINE 50 ML IV SCH ×2 (01:03→14:02)
[2018-01-18] MEDS: IPRATROPIUM BROMIDE 0.5 MG/2.5 ML NEBU NEB SCH ×6 (03:06→23:08)
[2018-01-18 03:40] VITALS: BP 162/76
[2018-01-18] MEDS: VANCOMYCIN FOR PO/GT/NG USE PO SCH ×3 (06:09→17:31)
[2018-01-18] MEDS: BLOOD SUGAR DIAGNOSTIC 1 EACH STRIP VI SCH ×3 (06:09→17:31)
[2018-01-18] MEDS: NORMAL SALINE FLUSH 10 ML DISP.SYRIN IV SCH ×3 (06:10→20:58)
[2018-01-18] MEDS: LEVOTHYROXINE SODIUM 75 MCG TABLET GT SCH (06:12)
[2018-01-18] MEDS: INSULIN REGULAR, HUMAN 300 UNIT/3 ML VIAL SQ PRN ×3 (06:14→17:36)
[2018-01-18] MEDS: ALBUTEROL SULFATE 2.5 MG/3 ML NEBU IH PRN ×4 (06:17→23:08)
[2018-01-18 07:19] LABS: BASOPHILS % (AUTO) 0.5 % (0.0-2.0); EOSINOPHILS # (AUTO) 0.3 K/uL (0.0-0.7); EOSINOPHILS % (AUTO) 2.9 % (0.0-7.0); HEMATOCRIT 29.8 % (31.2-41.9); HEMOGLOBIN 9.9 g/dL (10.9-14.3); LYMPHOCYTES # (AUTO) 0.8 K/uL (20.0-40.0); LYMPHOCYTES % (AUTO) 9.1 % (20.5-51.5); MEAN CORPUSCULAR HEMOGLOBIN 30.7 uug (24.7-32.8); MEAN CORPUSCULAR HGB CONC 33 g/dL (32.3-35.6); MEAN CORPUSCULAR VOLUME 92.1 fL (75.5-95.3); MONOCYTES # (AUTO) 0.7 K/uL (2.0-10.0); MONOCYTES % (AUTO) 7.7 % (0.0-11.0); NEUTROPHILS # (AUTO) 7.4 K/uL (1.8-8.9); NEUTROPHILS % (AUTO) 79.8 % (38.5-71.5); PLATELET COUNT (AUTO) 424 K/uL (179-408); RED BLOOD CELL COUNT(AUTO) 3.24 MIL/uL (3.63-4.92); WHITE BLOOD COUNT (AUTO) 9.3 K/uL (3.8-11.8)
[2018-01-18 07:37] LABS: ALANINE AMINOTRANSFERASE 23 U/L (14-59); ALKALINE PHOSPHATASE 131 U/L (50-136); ASPARTATE AMINOTRANSFERASE 33 U/L (15-37); BILIRUBIN,TOTAL 0.3 mg/dL (0.2-1.0); CARBON DIOXIDE 22 mmol/L (21-32); CHLORIDE 115 mmol/L (98-107); CREATININE 3.1 mg/dL (0.6-1.3); GLUCOSE 192 mg/dL (74-106); MAGNESIUM 2.2 mg/dL (1.8-2.4); PHOSPHOROUS 3.6 mg/dL (2.5-4.9); POTASSIUM 3.1 mmol/L (3.5-5.1); TOTAL PROTEIN, SERUM 6.2 g/dL (6.4-8.2); UREA NITROGEN, BLOOD 66 mg/dL (7-18)
[2018-01-18 08:03] LABS: EOSINOPHILS % (MANUAL) 4 % (0-8); LYMPHOCYTES % (MANUAL) 10 % (20-40); MONOCYTES % (MANUAL) 7 % (2-10); MYELOCYTES % 2 % (0-0); NEUTROPHILS % (MANUAL) 77 % (42-75)
[2018-01-18] MEDS: AMIODARONE HCL 200 MG TABLET PO SCH ×2 (09:24→20:58)
[2018-01-18] MEDS: CYANOCOBALAMIN 1,000 MCG TABLET GT SCH (09:25)
[2018-01-18] MEDS: FUROSEMIDE 40 MG/4 ML VIAL IV SCH (09:25)
[2018-01-18] MEDS: METOCLOPRAMIDE HCL 10 MG/2 ML VIAL IV SCH ×2 (09:25→20:57)
[2018-01-18] MEDS: METOPROLOL TARTRATE 25 MG TABLET GT SCH ×2 (09:25→20:58)
[2018-01-18] MEDS: ZINC SULFATE 220 MG CAPSULE GT SCH (09:25)
[2018-01-18] MEDS: ASCORBIC ACID 500 MG TABLET GT SCH ×2 (09:25→17:31)
[2018-01-18] MEDS: FAMOTIDINE. 20 MG/2 ML VIAL IV SCH (09:25)
[2018-01-18] MEDS: ONDANSETRON 4 MG/2 ML VIAL IV PRN ×2 (10:13→22:41)
[2018-01-18] MEDS ORDERED: POTASSIUM CHLORIDE 20 MEQ POWDER PACKET GT ONE (10:45)
[2018-01-18 11:19] VITALS: BP 150/84
[2018-01-18] MEDS: Z GUARD REMEDY PASTE 57 GM TUBE TOP SCH ×2 (11:39→20:58)
[2018-01-18 15:10] VITALS: BP 134/86
[2018-01-18 19:00] VITALS: BP 132/60
[2018-01-18] MEDS: ACETAMINOPHEN 325 MG TABLET PO PRN (20:57)
[2018-01-18] MEDS: ATORVASTATIN 40 MG TABLET GT SCH (21:02)
[2018-01-18] MEDS: MORPHINE SULFATE 2 MG/1 ML DISP.SYRIN IV PRN (22:41)
[2018-01-18] MEDS: NORMAL SALINE FLUSH 10 ML DISP.SYRIN IV PRN (22:42)
[2018-01-19] MEDS: VANCOMYCIN FOR PO/GT/NG USE PO SCH ×5 (00:12→23:17)
[2018-01-19] MEDS: BLOOD SUGAR DIAGNOSTIC 1 EACH STRIP VI SCH ×5 (00:19→23:43)
[2018-01-19] MEDS: INSULIN REGULAR, HUMAN 300 UNIT/3 ML VIAL SQ PRN ×4 (00:20→23:44)
[2018-01-19] MEDS: IPRATROPIUM BROMIDE 0.5 MG/2.5 ML NEBU NEB SCH ×6 (03:06→23:09)
[2018-01-19] MEDS: ALBUTEROL SULFATE 2.5 MG/3 ML NEBU IH PRN ×3 (03:06→23:09)
[2018-01-19] MEDS: MEROPENEM 500 MG in IV NORMAL SALINE 50 ML IV SCH ×2 (03:12→13:20)
[2018-01-19 04:00] VITALS: BP 110/57
[2018-01-19] MEDS: NORMAL SALINE FLUSH 10 ML DISP.SYRIN IV SCH ×3 (04:55→20:14)
[2018-01-19 06:24] LABS: BASOPHILS # (AUTO) 0.1 K/uL (0.0-8.0); BASOPHILS % (AUTO) 0.6 % (0.0-2.0); EOSINOPHILS # (AUTO) 0.7 K/uL (0.0-0.7); EOSINOPHILS % (AUTO) 7.9 % (0.0-7.0); HEMATOCRIT 27.4 % (31.2-41.9); HEMOGLOBIN 8.9 g/dL (10.9-14.3); LYMPHOCYTES % (AUTO) 10.4 % (20.5-51.5); MEAN CORPUSCULAR HEMOGLOBIN 29.8 uug (24.7-32.8); MEAN CORPUSCULAR HGB CONC 33 g/dL (32.3-35.6); MEAN CORPUSCULAR VOLUME 91.9 fL (75.5-95.3); MONOCYTES # (AUTO) 0.9 K/uL (2.0-10.0); MONOCYTES % (AUTO) 9.7 % (0.0-11.0); NEUTROPHILS # (AUTO) 6.6 K/uL (1.8-8.9); NEUTROPHILS % (AUTO) 71.4 % (38.5-71.5); PLATELET COUNT (AUTO) 418 K/uL (179-408); RED BLOOD CELL COUNT(AUTO) 2.99 MIL/uL (3.63-4.92); WHITE BLOOD COUNT (AUTO) 9.2 K/uL (3.8-11.8)
[2018-01-19] MEDS: LEVOTHYROXINE SODIUM 75 MCG TABLET GT SCH (06:32)
[2018-01-19 06:43] LABS: ALANINE AMINOTRANSFERASE 31 U/L (14-59); ALKALINE PHOSPHATASE 89 U/L (50-136); ASPARTATE AMINOTRANSFERASE 42 U/L (15-37); BILIRUBIN,TOTAL 0.3 mg/dL (0.2-1.0); CARBON DIOXIDE 24 mmol/L (21-32); CHLORIDE 119 mmol/L (98-107); CREATININE 2.9 mg/dL (0.6-1.3); GLUCOSE 146 mg/dL (74-106); MAGNESIUM 2.1 mg/dL (1.8-2.4); PHOSPHOROUS 4.6 mg/dL (2.5-4.9); POTASSIUM 3.8 mmol/L (3.5-5.1); UREA NITROGEN, BLOOD 62 mg/dL (7-18)
[2018-01-19 07:41] LABS: BASOPHILS % (MANUAL) 1 % (0-2); EOSINOPHILS % (MANUAL) 5 % (0-8); MONOCYTES % (MANUAL) 10 % (2-10)
[2018-01-19 07:42] LABS: LYMPHOCYTES % (MANUAL) 10 % (20-40); NEUTROPHILS % (MANUAL) 74 % (42-75)
[2018-01-19] MEDS: AMIODARONE HCL 200 MG TABLET PO SCH ×2 (09:33→20:13)
[2018-01-19] MEDS: METOPROLOL TARTRATE 25 MG TABLET GT SCH ×2 (09:33→20:13)
[2018-01-19] MEDS: ZINC SULFATE 220 MG CAPSULE GT SCH (09:34)
[2018-01-19] MEDS: FAMOTIDINE. 20 MG/2 ML VIAL IV SCH (09:34)
[2018-01-19] MEDS: CYANOCOBALAMIN 1,000 MCG TABLET GT SCH (09:34)
[2018-01-19] MEDS: Z GUARD REMEDY PASTE 57 GM TUBE TOP SCH ×2 (09:34→20:12)
[2018-01-19] MEDS: METOCLOPRAMIDE HCL 10 MG/2 ML VIAL IV SCH ×2 (09:34→20:12)
[2018-01-19] MEDS: FUROSEMIDE 40 MG/4 ML VIAL IV SCH (09:34)
[2018-01-19] MEDS: ASCORBIC ACID 500 MG TABLET GT SCH ×2 (09:34→18:12)
[2018-01-19 11:26] VITALS: BP 140/63
[2018-01-19 15:26] VITALS: BP 131/57
[2018-01-19 19:28] VITALS: BP 151/73
[2018-01-19] MEDS: ACETAMINOPHEN 325 MG TABLET PO PRN (20:12)
[2018-01-19] MEDS: ATORVASTATIN 40 MG TABLET GT SCH (20:13)
[2018-01-19] MEDS: ZOLPIDEM 5 MG TABLET GT PRN (20:56)
[2018-01-19] MEDS: ONDANSETRON 4 MG/2 ML VIAL IV PRN (23:51)
[2018-01-19] MEDS: MORPHINE SULFATE 2 MG/1 ML DISP.SYRIN IV PRN (23:51)
[2018-01-20] VITALS (10 sets, daily range): BP systolic 99–144; BP diastolic 47–77
[2018-01-20] MEDS: MEROPENEM 500 MG in IV NORMAL SALINE 50 ML IV SCH ×2 (02:09→13:29)
[2018-01-20] MEDS: IPRATROPIUM BROMIDE 0.5 MG/2.5 ML NEBU NEB SCH ×6 (02:26→22:35)
[2018-01-20] MEDS: ALBUTEROL SULFATE 2.5 MG/3 ML NEBU IH PRN ×4 (02:26→22:36)
[2018-01-20] MEDS: Z GUARD REMEDY PASTE 57 GM TUBE TOP PRN (06:00)
[2018-01-20] MEDS: LEVOTHYROXINE SODIUM 75 MCG TABLET GT SCH (06:00)
[2018-01-20] MEDS: VANCOMYCIN FOR PO/GT/NG USE PO SCH ×3 (06:01→16:52)
[2018-01-20] MEDS: NORMAL SALINE FLUSH 10 ML DISP.SYRIN IV SCH ×3 (06:02→21:26)
[2018-01-20 06:16] LABS: BASOPHILS # (AUTO) 0.1 K/uL (0.0-8.0); BASOPHILS % (AUTO) 0.9 % (0.0-2.0); EOSINOPHILS # (AUTO) 1.2 K/uL (0.0-0.7); EOSINOPHILS % (AUTO) 16.7 % (0.0-7.0); HEMATOCRIT 26.5 % (31.2-41.9); HEMOGLOBIN 8.9 g/dL (10.9-14.3); LYMPHOCYTES # (AUTO) 0.8 K/uL (20.0-40.0); LYMPHOCYTES % (AUTO) 11.2 % (20.5-51.5); MEAN CORPUSCULAR HEMOGLOBIN 30.8 uug (24.7-32.8); MEAN CORPUSCULAR HGB CONC 33 g/dL (32.3-35.6); MEAN CORPUSCULAR VOLUME 92.3 fL (75.5-95.3); MONOCYTES # (AUTO) 0.9 K/uL (2.0-10.0); MONOCYTES % (AUTO) 11.8 % (0.0-11.0); NEUTROPHILS # (AUTO) 4.4 K/uL (1.8-8.9); NEUTROPHILS % (AUTO) 59.4 % (38.5-71.5); PLATELET COUNT (AUTO) 402 K/uL (179-408); RED BLOOD CELL COUNT(AUTO) 2.87 MIL/uL (3.63-4.92); WHITE BLOOD COUNT (AUTO) 7.4 K/uL (3.8-11.8)
[2018-01-20] MEDS: BLOOD SUGAR DIAGNOSTIC 1 EACH STRIP VI SCH ×3 (06:16→17:56)
[2018-01-20] MEDS: NEPRO 1000 ML GT PRN (06:31)
[2018-01-20 06:49] LABS: CARBON DIOXIDE 22 mmol/L (21-32); CHLORIDE 121 mmol/L (98-107); CREATININE 2.6 mg/dL (0.6-1.3); GLUCOSE 126 mg/dL (74-106); POTASSIUM 3.1 mmol/L (3.5-5.1); UREA NITROGEN, BLOOD 56 mg/dL (7-18)
[2018-01-20 07:48] LABS: NEUTROPHILS % (MANUAL) 64 % (42-75)
[2018-01-20 07:49] LABS: BASOPHILS % (MANUAL) 1 % (0-2); EOSINOPHILS % (MANUAL) 13 % (0-8); LYMPHOCYTES % (MANUAL) 11 % (20-40); MONOCYTES % (MANUAL) 11 % (2-10)
[2018-01-20] MEDS: ZINC SULFATE 220 MG CAPSULE GT SCH (08:40)
[2018-01-20] MEDS: ASCORBIC ACID 500 MG TABLET GT SCH ×2 (08:40→16:53)
[2018-01-20] MEDS: AMIODARONE HCL 200 MG TABLET PO SCH (08:40)
[2018-01-20] MEDS: CYANOCOBALAMIN 1,000 MCG TABLET GT SCH (08:40)
[2018-01-20] MEDS: METOPROLOL TARTRATE 25 MG TABLET GT SCH ×2 (08:40→20:53)
[2018-01-20] MEDS: METOCLOPRAMIDE HCL 10 MG/2 ML VIAL IV SCH ×2 (08:40→20:54)
[2018-01-20] MEDS: FAMOTIDINE. 20 MG/2 ML VIAL IV SCH (08:40)
[2018-01-20] MEDS: Z GUARD REMEDY PASTE 57 GM TUBE TOP SCH ×2 (08:41→20:54)
[2018-01-20] MEDS: FUROSEMIDE 40 MG/4 ML VIAL IV SCH (09:53)
[2018-01-20] MEDS ORDERED: AMIODARONE HCL IV 150 MG in IV DEXTROSE 5% 100 ML IV ONE (13:15)
[2018-01-20] MEDS: INSULIN REGULAR, HUMAN 300 UNIT/3 ML VIAL SQ PRN ×2 (13:28→17:57)
[2018-01-20] MEDS ORDERED: AMIODARONE HCL IV 900 MG in IV DEXTROSE 5% 482 ML IV PRN (13:30)
[2018-01-20] MEDS: POTASSIUM CHLORIDE 50 ML IV SCH ×2 (14:06→15:24)
[2018-01-20] MEDS ORDERED: POTASSIUM CHLORIDE 100 ML IV ONE (14:30)
[2018-01-20] MEDS: MORPHINE SULFATE 2 MG/1 ML DISP.SYRIN IV PRN (15:57)
[2018-01-20] MEDS: IV NORMAL SALINE 250 ML IV PRN (20:00)
[2018-01-20] MEDS: ATORVASTATIN 40 MG TABLET GT SCH (20:53)
[2018-01-21] VITALS (16 sets, daily range): BP systolic 106–152; BP diastolic 47–74
[2018-01-21] MEDS: VANCOMYCIN FOR PO/GT/NG USE PO SCH ×5 (00:02→23:57)
[2018-01-21] MEDS: BLOOD SUGAR DIAGNOSTIC 1 EACH STRIP VI SCH ×5 (00:06→23:57)
[2018-01-21] MEDS: INSULIN REGULAR, HUMAN 300 UNIT/3 ML VIAL SQ PRN ×4 (00:06→17:00)
[2018-01-21] MEDS: MEROPENEM 500 MG in IV NORMAL SALINE 50 ML IV SCH ×2 (02:57→13:38)
[2018-01-21] MEDS: IPRATROPIUM BROMIDE 0.5 MG/2.5 ML NEBU NEB SCH ×6 (04:41→23:05)
[2018-01-21] MEDS: ALBUTEROL SULFATE 2.5 MG/3 ML NEBU IH PRN ×5 (04:41→19:15)
[2018-01-21] MEDS: NORMAL SALINE FLUSH 10 ML DISP.SYRIN IV SCH ×3 (05:58→22:07)
[2018-01-21] MEDS: Z GUARD REMEDY PASTE 57 GM TUBE TOP PRN (06:00)
[2018-01-21] MEDS: LEVOTHYROXINE SODIUM 75 MCG TABLET GT SCH (06:10)
[2018-01-21] MEDS: NEPRO 1000 ML GT PRN (08:00)
[2018-01-21] MEDS: METOPROLOL TARTRATE 25 MG TABLET GT SCH ×2 (08:40→20:32)
[2018-01-21] MEDS: FUROSEMIDE 40 MG/4 ML VIAL IV SCH (08:41)
[2018-01-21] MEDS: ASCORBIC ACID 500 MG TABLET GT SCH ×2 (08:41→16:18)
[2018-01-21] MEDS: ZINC SULFATE 220 MG CAPSULE GT SCH (08:41)
[2018-01-21] MEDS: METOCLOPRAMIDE HCL 10 MG/2 ML VIAL IV SCH ×2 (08:41→20:33)
[2018-01-21] MEDS: FAMOTIDINE. 20 MG/2 ML VIAL IV SCH (08:41)
[2018-01-21] MEDS: CYANOCOBALAMIN 1,000 MCG TABLET GT SCH (08:41)
[2018-01-21] MEDS: Z GUARD REMEDY PASTE 57 GM TUBE TOP SCH ×2 (09:06→20:34)
[2018-01-21] MEDS: ACETAMINOPHEN 325 MG TABLET PO PRN ×2 (09:21→15:05)
[2018-01-21 09:34] LABS: BASOPHILS % (AUTO) 0.6 % (0.0-2.0); EOSINOPHILS # (AUTO) 1.1 K/uL (0.0-0.7); EOSINOPHILS % (AUTO) 12.9 % (0.0-7.0); HEMATOCRIT 26.2 % (31.2-41.9); HEMOGLOBIN 8.4 g/dL (10.9-14.3); LYMPHOCYTES % (AUTO) 11.2 % (20.5-51.5); MEAN CORPUSCULAR HGB CONC 32 g/dL (32.3-35.6); MEAN CORPUSCULAR VOLUME 93.2 fL (75.5-95.3); MONOCYTES # (AUTO) 0.9 K/uL (2.0-10.0); MONOCYTES % (AUTO) 10.5 % (0.0-11.0); NEUTROPHILS # (AUTO) 5.6 K/uL (1.8-8.9); NEUTROPHILS % (AUTO) 64.8 % (38.5-71.5); PLATELET COUNT (AUTO) 355 K/uL (179-408); RED BLOOD CELL COUNT(AUTO) 2.81 MIL/uL (3.63-4.92); WHITE BLOOD COUNT (AUTO) 8.6 K/uL (3.8-11.8)
[2018-01-21 09:39] LABS: CARBON DIOXIDE 26 mmol/L (21-32); CHLORIDE 118 mmol/L (98-107); CREATININE 2.2 mg/dL (0.6-1.3); GLUCOSE 188 mg/dL (74-106); MAGNESIUM 1.8 mg/dL (1.8-2.4); PHOSPHOROUS 2.9 mg/dL (2.5-4.9); POTASSIUM 2.9 mmol/L (3.5-5.1); UREA NITROGEN, BLOOD 48 mg/dL (7-18)
[2018-01-21 11:13] LABS: EOSINOPHILS % (MANUAL) 12 % (0-8); LYMPHOCYTES % (MANUAL) 11 % (20-40); MONOCYTES % (MANUAL) 10 % (2-10); MYELOCYTES % 1 % (0-0); NEUTROPHILS % (MANUAL) 66 % (42-75)
[2018-01-21] MEDS ORDERED: IV D5W 1000ML 1,000 ML IV ONE (11:15)
[2018-01-21] MEDS: ATORVASTATIN 40 MG TABLET GT SCH (20:32)
[2018-01-21] MEDS: AMIODARONE HCL 200 MG TABLET GT SCH (20:32)
[2018-01-22] VITALS (7 sets, daily range): BP systolic 112–140; BP diastolic 41–85
[2018-01-22] MEDS: MEROPENEM 500 MG in IV NORMAL SALINE 50 ML IV SCH ×2 (01:56→14:15)
[2018-01-22] MEDS: IPRATROPIUM BROMIDE 0.5 MG/2.5 ML NEBU NEB SCH ×6 (02:50→22:48)
[2018-01-22] MEDS: ALBUTEROL SULFATE 2.5 MG/3 ML NEBU IH PRN ×2 (02:50→19:07)
[2018-01-22] MEDS: MORPHINE SULFATE 2 MG/1 ML DISP.SYRIN IV PRN (04:31)
[2018-01-22] MEDS: BLOOD SUGAR DIAGNOSTIC 1 EACH STRIP VI SCH ×3 (06:06→18:05)
[2018-01-22] MEDS: NORMAL SALINE FLUSH 10 ML DISP.SYRIN IV SCH ×3 (06:06→21:20)
[2018-01-22] MEDS: LEVOTHYROXINE SODIUM 75 MCG TABLET GT SCH (06:07)
[2018-01-22] MEDS: VANCOMYCIN FOR PO/GT/NG USE PO SCH ×3 (06:07→18:11)
[2018-01-22] MEDS: INSULIN REGULAR, HUMAN 300 UNIT/3 ML VIAL SQ PRN ×4 (06:09→18:17)
[2018-01-22 06:48] LABS: ALANINE AMINOTRANSFERASE 41 U/L (14-59); ALKALINE PHOSPHATASE 141 U/L (50-136); ASPARTATE AMINOTRANSFERASE 46 U/L (15-37); BILIRUBIN,TOTAL 0.3 mg/dL (0.2-1.0); CARBON DIOXIDE 29 mmol/L (21-32); CHLORIDE 115 mmol/L (98-107); CREATININE 2.2 mg/dL (0.6-1.3); GLUCOSE 214 mg/dL (74-106); MAGNESIUM 1.7 mg/dL (1.8-2.4); PHOSPHOROUS 2.6 mg/dL (2.5-4.9); POTASSIUM 3.1 mmol/L (3.5-5.1); TOTAL PROTEIN, SERUM 6.3 g/dL (6.4-8.2); UREA NITROGEN, BLOOD 42 mg/dL (7-18)
[2018-01-22 07:01] LABS: BASOPHILS # (AUTO) 0.1 K/uL (0.0-8.0); BASOPHILS % (AUTO) 0.5 % (0.0-2.0); EOSINOPHILS # (AUTO) 1.2 K/uL (0.0-0.7); EOSINOPHILS % (AUTO) 11.4 % (0.0-7.0); HEMATOCRIT 27.1 % (31.2-41.9); HEMOGLOBIN 8.8 g/dL (10.9-14.3); LYMPHOCYTES # (AUTO) 1.4 K/uL (20.0-40.0); LYMPHOCYTES % (AUTO) 12.7 % (20.5-51.5); MEAN CORPUSCULAR HEMOGLOBIN 30.5 uug (24.7-32.8); MEAN CORPUSCULAR HGB CONC 32 g/dL (32.3-35.6); MONOCYTES # (AUTO) 0.9 K/uL (2.0-10.0); MONOCYTES % (AUTO) 8.5 % (0.0-11.0); NEUTROPHILS # (AUTO) 7.1 K/uL (1.8-8.9); NEUTROPHILS % (AUTO) 66.9 % (38.5-71.5); PLATELET COUNT (AUTO) 368 K/uL (179-408); RED BLOOD CELL COUNT(AUTO) 2.88 MIL/uL (3.63-4.92); WHITE BLOOD COUNT (AUTO) 10.7 K/uL (3.8-11.8)
[2018-01-22] MEDS: METOCLOPRAMIDE HCL 10 MG/2 ML VIAL IV SCH ×2 (08:25→20:42)
[2018-01-22] MEDS: FUROSEMIDE 40 MG/4 ML VIAL IV SCH (08:25)
[2018-01-22] MEDS: FAMOTIDINE. 20 MG/2 ML VIAL IV SCH (08:25)
[2018-01-22] MEDS: AMIODARONE HCL 200 MG TABLET GT SCH ×2 (08:26→20:48)
[2018-01-22] MEDS: CYANOCOBALAMIN 1,000 MCG TABLET GT SCH (08:26)
[2018-01-22] MEDS: ZINC SULFATE 220 MG CAPSULE GT SCH (08:27)
[2018-01-22] MEDS: METOPROLOL TARTRATE 25 MG TABLET GT SCH ×2 (08:27→20:42)
[2018-01-22] MEDS: ASCORBIC ACID 500 MG TABLET GT SCH ×2 (08:27→18:07)
[2018-01-22] MEDS: Z GUARD REMEDY PASTE 57 GM TUBE TOP SCH ×2 (08:53→21:19)
[2018-01-22] MEDS: NEPRO 1000 ML GT PRN (08:53)
[2018-01-22 10:24] LABS: BASOPHILS % (MANUAL) 2 % (0-2); EOSINOPHILS % (MANUAL) 9 % (0-8); LYMPHOCYTES % (MANUAL) 10 % (20-40); METAMYELOCYTES % 3 % (0-1); MONOCYTES % (MANUAL) 9 % (2-10); MYELOCYTES % 7 % (0-0); NEUTROPHILS % (MANUAL) 60 % (42-75)
[2018-01-22] MEDS ORDERED: MAGNESIUM OXIDE 400 MG TABLET GT ONE (12:00)
[2018-01-22] MEDS ORDERED: POTASSIUM CHLORIDE 20 MEQ POWDER PACKET GT ONE (12:00)
[2018-01-22] MEDS: IV NORMAL SALINE 250 ML IV PRN (12:38)
[2018-01-22 14:07] LABS: ABG BASE EXCESS -0.6 mmol/L; ABG HCO3 24.5 mmol/L; ABG PCO2 42.1 mmHg (35.0-45.0); ABG PH 7.382 (7.350-7.450); ABG PO2 87.7 mmHg (75.0-100.0); ABG SITE LEFT RADIAL; ABG TOTAL HEMOGLOBIN 9.3 G/dL (12.0-16.0); COHb 1.4 % (0.5-1.5); MetHb 0.1 % (0.0-1.5); O2Hb 94.9 % (94.0-97.0); VENT MODE Nasal Cannula
[2018-01-22] MEDS: ATORVASTATIN 40 MG TABLET GT SCH (20:40)
[2018-01-22] MEDS: ONDANSETRON 4 MG/2 ML VIAL IV PRN (23:45)
[2018-01-23] MEDS: VANCOMYCIN FOR PO/GT/NG USE PO SCH ×5 (00:17→23:30)
[2018-01-23] MEDS: BLOOD SUGAR DIAGNOSTIC 1 EACH STRIP VI SCH ×5 (00:18→23:30)
[2018-01-23] MEDS: INSULIN REGULAR, HUMAN 300 UNIT/3 ML VIAL SQ PRN ×4 (00:18→17:05)
[2018-01-23 00:27] VITALS: BP 139/62
[2018-01-23] MEDS: MEROPENEM 500 MG in IV NORMAL SALINE 50 ML IV SCH ×2 (02:00→13:15)
[2018-01-23] MEDS: IPRATROPIUM BROMIDE 0.5 MG/2.5 ML NEBU NEB SCH ×7 (03:26→22:40)
[2018-01-23 05:14] VITALS: BP 111/53
[2018-01-23] MEDS: LEVOTHYROXINE SODIUM 75 MCG TABLET GT SCH (05:34)
[2018-01-23] MEDS: NORMAL SALINE FLUSH 10 ML DISP.SYRIN IV SCH ×3 (05:36→21:36)
[2018-01-23] MEDS: IV NORMAL SALINE 250 ML IV PRN (05:53)
[2018-01-23 06:59] LABS: BASOPHILS # (AUTO) 0.1 K/uL (0.0-8.0); BASOPHILS % (AUTO) 0.7 % (0.0-2.0); EOSINOPHILS # (AUTO) 1.4 K/uL (0.0-0.7); EOSINOPHILS % (AUTO) 11.7 % (0.0-7.0); HEMATOCRIT 27.4 % (31.2-41.9); LYMPHOCYTES # (AUTO) 1.6 K/uL (20.0-40.0); LYMPHOCYTES % (AUTO) 12.9 % (20.5-51.5); MEAN CORPUSCULAR HGB CONC 33 g/dL (32.3-35.6); MEAN CORPUSCULAR VOLUME 94.2 fL (75.5-95.3); MONOCYTES # (AUTO) 0.7 K/uL (2.0-10.0); MONOCYTES % (AUTO) 5.9 % (0.0-11.0); NEUTROPHILS # (AUTO) 8.3 K/uL (1.8-8.9); NEUTROPHILS % (AUTO) 68.8 % (38.5-71.5); PLATELET COUNT (AUTO) 324 K/uL (179-408); RED BLOOD CELL COUNT(AUTO) 2.91 MIL/uL (3.63-4.92); WHITE BLOOD COUNT (AUTO) 12.1 K/uL (3.8-11.8)
[2018-01-23 07:09] LABS: ALANINE AMINOTRANSFERASE 241 U/L (14-59); ALKALINE PHOSPHATASE 884 U/L (50-136); ASPARTATE AMINOTRANSFERASE 508 U/L (15-37); BILIRUBIN,TOTAL 0.4 mg/dL (0.2-1.0); CARBON DIOXIDE 29 mmol/L (21-32); CHLORIDE 117 mmol/L (98-107); GLUCOSE 222 mg/dL (74-106); PHOSPHOROUS 1.7 mg/dL (2.5-4.9); POTASSIUM 3.4 mmol/L (3.5-5.1); TOTAL PROTEIN, SERUM 6.3 g/dL (6.4-8.2); UREA NITROGEN, BLOOD 41 mg/dL (7-18)
[2018-01-23] MEDS: ALBUTEROL SULFATE 2.5 MG/3 ML NEBU IH PRN ×3 (07:12→22:40)
[2018-01-23] MEDS: AMIODARONE HCL 200 MG TABLET GT SCH ×2 (08:41→21:00)
[2018-01-23] MEDS: ASCORBIC ACID 500 MG TABLET GT SCH ×2 (08:41→16:12)
[2018-01-23] MEDS: CYANOCOBALAMIN 1,000 MCG TABLET GT SCH (08:41)
[2018-01-23] MEDS: ZINC SULFATE 220 MG CAPSULE GT SCH (08:41)
[2018-01-23] MEDS: METOPROLOL TARTRATE 25 MG TABLET GT SCH ×2 (08:45→21:35)
[2018-01-23] MEDS: FAMOTIDINE. 20 MG/2 ML VIAL IV SCH (08:45)
[2018-01-23] MEDS: METOCLOPRAMIDE HCL 10 MG/2 ML VIAL IV SCH ×2 (08:45→21:35)
[2018-01-23] MEDS: FUROSEMIDE 40 MG/4 ML VIAL IV SCH (08:45)
[2018-01-23] MEDS: Z GUARD REMEDY PASTE 57 GM TUBE TOP SCH ×2 (08:46→21:30)
[2018-01-23 10:01] LABS: BAND % (MANUAL) 2 % (0-10); EOSINOPHILS % (MANUAL) 10 % (0-8); LYMPHOCYTES % (MANUAL) 11 % (20-40); METAMYELOCYTES % 2 % (0-1); MONOCYTES % (MANUAL) 3 % (2-10); NEUTROPHILS % (MANUAL) 72 % (42-75)
[2018-01-23] MEDS ORDERED: IV NORMAL SALINE 1000 ML BAG IV ONE (11:09)
[2018-01-23] MEDS ORDERED: PROPOFOL 200 MG/20 ML BOTTLE IV ONE (11:09)
[2018-01-23 11:25] VITALS: BP 117/64
[2018-01-23] MEDS ORDERED: IV D5W 1000ML 1,000 ML IV ONE (12:00)
[2018-01-23] MEDS ORDERED: POTASSIUM CHLORIDE 20 MEQ POWDER PACKET GT ONE (13:30)
[2018-01-23] MEDS ORDERED: AMIODARONE HCL IV 150 MG in IV DEXTROSE 5% 100 ML IV ONE (15:00)
[2018-01-23] MEDS ORDERED: AMIODARONE HCL IV 900 MG in IV DEXTROSE 5% 482 ML IV PRN (15:00)
[2018-01-23] MEDS ORDERED: NEUTRA PHOS PACKET GT ONE (15:45)
[2018-01-23 16:05] VITALS: BP 126/59
[2018-01-23 21:00] VITALS: BP 121/49
[2018-01-23] MEDS: ATORVASTATIN 40 MG TABLET GT SCH (21:35)
[2018-01-23 22:00] VITALS: BP 121/49
[2018-01-23] MEDS: NEPRO 1000 ML GT PRN (22:18)
[2018-01-24] VITALS (10 sets, daily range): BP systolic 105–123; BP diastolic 35–70
[2018-01-24] MEDS: MEROPENEM 500 MG in IV NORMAL SALINE 50 ML IV SCH ×2 (01:26→13:47)
[2018-01-24] MEDS: IV NORMAL SALINE 250 ML IV PRN (02:49)
[2018-01-24] MEDS: IPRATROPIUM BROMIDE 0.5 MG/2.5 ML NEBU NEB SCH ×6 (03:38→23:30)
[2018-01-24] MEDS: BLOOD SUGAR DIAGNOSTIC 1 EACH STRIP VI SCH ×4 (05:47→23:48)
[2018-01-24] MEDS: INSULIN REGULAR, HUMAN 300 UNIT/3 ML VIAL SQ PRN ×3 (05:48→23:51)
[2018-01-24] MEDS: VANCOMYCIN FOR PO/GT/NG USE PO SCH ×4 (05:49→23:48)
[2018-01-24] MEDS: NORMAL SALINE FLUSH 10 ML DISP.SYRIN IV SCH ×3 (05:50→22:00)
[2018-01-24] MEDS: LEVOTHYROXINE SODIUM 75 MCG TABLET GT SCH (06:15)
[2018-01-24 06:22] LABS: BASOPHILS % (AUTO) 0.2 % (0.0-2.0); EOSINOPHILS # (AUTO) 0.4 K/uL (0.0-0.7); EOSINOPHILS % (AUTO) 2.2 % (0.0-7.0); HEMATOCRIT 28.4 % (31.2-41.9); HEMOGLOBIN 8.9 g/dL (10.9-14.3); MEAN CORPUSCULAR HEMOGLOBIN 29.6 uug (24.7-32.8); MEAN CORPUSCULAR HGB CONC 31 g/dL (32.3-35.6); MEAN CORPUSCULAR VOLUME 94.4 fL (75.5-95.3); MONOCYTES % (AUTO) 6.2 % (0.0-11.0); NEUTROPHILS # (AUTO) 14.2 K/uL (1.8-8.9); NEUTROPHILS % (AUTO) 85.4 % (38.5-71.5); PLATELET COUNT (AUTO) 340 K/uL (179-408); RED BLOOD CELL COUNT(AUTO) 3.01 MIL/uL (3.63-4.92); WHITE BLOOD COUNT (AUTO) 16.6 K/uL (3.8-11.8)
[2018-01-24 06:52] LABS: ALANINE AMINOTRANSFERASE 692 U/L (14-59); ALKALINE PHOSPHATASE 2267 U/L (50-136); ASPARTATE AMINOTRANSFERASE 2144 U/L (15-37); CARBON DIOXIDE 27 mmol/L (21-32); CHLORIDE 108 mmol/L (98-107); MAGNESIUM 1.8 mg/dL (1.8-2.4); POTASSIUM 3.6 mmol/L (3.5-5.1); TOTAL PROTEIN, SERUM 6.4 g/dL (6.4-8.2); UREA NITROGEN, BLOOD 37 mg/dL (7-18)
[2018-01-24 06:55] LABS: GLUCOSE 346 mg/dL (74-106)
[2018-01-24] MEDS: ALBUTEROL SULFATE 2.5 MG/3 ML NEBU IH PRN ×3 (07:52→23:30)
[2018-01-24] MEDS ORDERED: VANC500V PO (08:35)
[2018-01-24] MEDS ORDERED: FURO10VI IV (08:35)
[2018-01-24] MEDS ORDERED: AMIO200T6 GT (08:35)
[2018-01-24] MEDS ORDERED: MERO500V IV (08:35)
[2018-01-24] MEDS ORDERED: FAMO20TA8 GT (08:35)
[2018-01-24] MEDS: AMIODARONE HCL 200 MG TABLET GT SCH (09:00)
[2018-01-24] MEDS: FUROSEMIDE 40 MG/4 ML VIAL IV SCH (09:26)
[2018-01-24] MEDS: METOCLOPRAMIDE HCL 10 MG/2 ML VIAL IV SCH ×2 (09:26→20:47)
[2018-01-24] MEDS: ASCORBIC ACID 500 MG TABLET GT SCH ×2 (09:26→17:16)
[2018-01-24] MEDS: FAMOTIDINE 20 MG TABLET GT SCH (09:26)
[2018-01-24] MEDS: CYANOCOBALAMIN 1,000 MCG TABLET GT SCH (09:26)
[2018-01-24] MEDS: ZINC SULFATE 220 MG CAPSULE GT SCH (09:26)
[2018-01-24] MEDS: METOPROLOL TARTRATE 25 MG TABLET GT SCH ×2 (09:27→20:47)
[2018-01-24] MEDS: Z GUARD REMEDY PASTE 57 GM TUBE TOP SCH ×2 (09:29→20:48)
[2018-01-24 09:48] LABS: BAND % (MANUAL) 0 % (0-10); EOSINOPHILS % (MANUAL) 2 % (0-8); LYMPHOCYTES % (MANUAL) 8 % (20-40); MONOCYTES % (MANUAL) 6 % (2-10)
[2018-01-24 09:49] LABS: METAMYELOCYTES % 1 % (0-1); NEUTROPHILS % (MANUAL) 83 % (42-75)
[2018-01-24 16:17] LABS: ALANINE AMINOTRANSFERASE 1626 U/L (14-59); ALKALINE PHOSPHATASE 2377 U/L (50-136); CARBON DIOXIDE 27 mmol/L (21-32); CHLORIDE 110 mmol/L (98-107); CREATININE 1.9 mg/dL (0.6-1.3); GLUCOSE 246 mg/dL (74-106); POTASSIUM 3.4 mmol/L (3.5-5.1); TOTAL PROTEIN, SERUM 6.1 g/dL (6.4-8.2); UREA NITROGEN, BLOOD 39 mg/dL (7-18)
[2018-01-24 18:06] LABS: ASPARTATE AMINOTRANSFERASE 5580 U/L (15-37)
[2018-01-24] MEDS ORDERED: ACETYLCYSTEINE IV 0 MG in IV D5W 1000ML 1,000 ML IV ONE (18:15)
[2018-01-24] MEDS ORDERED: ACETYLCYSTEINE IV 0 MG in IV DEXTROSE 5% 500 ML IV ONE (18:15)
[2018-01-24] MEDS ORDERED: ACETYLCYSTEINE IV 0 MG in IV DEXTROSE 5% 200 ML IV ONE (18:15)
[2018-01-24] MEDS: NEPRO 1000 ML GT PRN (19:52)
[2018-01-24] MEDS ORDERED: ACETYLCYSTEINE IV ONE ×2 (20:15→21:30)
[2018-01-24] MEDS ORDERED: DEXTROSE 5% IV ONE ×2 (20:15→21:30)
[2018-01-24] MEDS: ONDANSETRON 4 MG/2 ML VIAL IV PRN (22:31)
[2018-01-25] VITALS: BP 98/36
[2018-01-25] MEDS ORDERED: D5W IV ONE ×2 (01:30→17:25)
[2018-01-25] MEDS ORDERED: ACETYLCYSTEINE IV ONE ×2 (01:30→17:25)
[2018-01-25] MEDS: MEROPENEM 500 MG in IV NORMAL SALINE 50 ML IV SCH ×2 (01:50→15:02)
[2018-01-25] MEDS: IV NORMAL SALINE 250 ML IV PRN (01:50)
[2018-01-25] MEDS: IPRATROPIUM BROMIDE 0.5 MG/2.5 ML NEBU NEB SCH ×6 (02:30→22:30)
[2018-01-25] MEDS: ALBUTEROL SULFATE 2.5 MG/3 ML NEBU IH PRN ×2 (02:30→19:14)
[2018-01-25 04:00] VITALS: BP 123/49
[2018-01-25] MEDS: BLOOD SUGAR DIAGNOSTIC 1 EACH STRIP VI SCH ×4 (05:27→23:30)
[2018-01-25] MEDS: NORMAL SALINE FLUSH 10 ML DISP.SYRIN IV SCH ×3 (05:27→21:15)
[2018-01-25] MEDS: VANCOMYCIN FOR PO/GT/NG USE PO SCH ×4 (05:31→23:24)
[2018-01-25] MEDS: INSULIN REGULAR, HUMAN 300 UNIT/3 ML VIAL SQ PRN ×4 (05:33→23:35)
[2018-01-25] MEDS: LEVOTHYROXINE SODIUM 75 MCG TABLET GT SCH (05:44)
[2018-01-25 06:27] LABS: BASOPHILS % (AUTO) 0.4 % (0.0-2.0); EOSINOPHILS # (AUTO) 0.2 K/uL (0.0-0.7); EOSINOPHILS % (AUTO) 2.6 % (0.0-7.0); HEMATOCRIT 24.5 % (31.2-41.9); HEMOGLOBIN 8.1 g/dL (10.9-14.3); LYMPHOCYTES % (AUTO) 10.2 % (20.5-51.5); MEAN CORPUSCULAR HEMOGLOBIN 30.8 uug (24.7-32.8); MEAN CORPUSCULAR HGB CONC 33 g/dL (32.3-35.6); MEAN CORPUSCULAR VOLUME 93.1 fL (75.5-95.3); MONOCYTES # (AUTO) 0.5 K/uL (2.0-10.0); MONOCYTES % (AUTO) 4.9 % (0.0-11.0); NEUTROPHILS # (AUTO) 7.9 K/uL (1.8-8.9); NEUTROPHILS % (AUTO) 81.9 % (38.5-71.5); PLATELET COUNT (AUTO) 213 K/uL (179-408); RED BLOOD CELL COUNT(AUTO) 2.64 MIL/uL (3.63-4.92); WHITE BLOOD COUNT (AUTO) 9.6 K/uL (3.8-11.8)
[2018-01-25 06:46] LABS: BILIRUBIN,TOTAL 3.1 mg/dL (0.2-1.0); CARBON DIOXIDE 27 mmol/L (21-32); CHLORIDE 107 mmol/L (98-107); GLUCOSE 179 mg/dL (74-106); PHOSPHOROUS 1.9 mg/dL (2.5-4.9); POTASSIUM 3.2 mmol/L (3.5-5.1); TOTAL PROTEIN, SERUM 6.2 g/dL (6.4-8.2); UREA NITROGEN, BLOOD 35 mg/dL (7-18)
[2018-01-25 07:57] LABS: ALANINE AMINOTRANSFERASE 2002 U/L (14-59); ALKALINE PHOSPHATASE 2617 U/L (50-136)
[2018-01-25 08:00] VITALS: BP 124/52
[2018-01-25 08:10] LABS: ASPARTATE AMINOTRANSFERASE 5853 U/L (15-37)
[2018-01-25] MEDS: METOPROLOL TARTRATE 25 MG TABLET GT SCH ×2 (09:12→21:14)
[2018-01-25] MEDS: METOCLOPRAMIDE HCL 10 MG/2 ML VIAL IV SCH ×2 (09:12→21:15)
[2018-01-25] MEDS: ASCORBIC ACID 500 MG TABLET GT SCH ×2 (09:12→16:54)
[2018-01-25] MEDS: ZINC SULFATE 220 MG CAPSULE GT SCH (09:12)
[2018-01-25] MEDS: FAMOTIDINE 20 MG TABLET GT SCH (09:12)
[2018-01-25] MEDS: FUROSEMIDE 40 MG/4 ML VIAL IV SCH (09:12)
[2018-01-25] MEDS: CYANOCOBALAMIN 1,000 MCG TABLET GT SCH (09:12)
[2018-01-25] MEDS: Z GUARD REMEDY PASTE 57 GM TUBE TOP SCH ×2 (09:13→21:16)
[2018-01-25 10:00] LABS: EOSINOPHILS % (MANUAL) 2 % (0-8); LYMPHOCYTES % (MANUAL) 10 % (20-40); MONOCYTES % (MANUAL) 6 % (2-10); NEUTROPHILS % (MANUAL) 82 % (42-75)
[2018-01-25 11:26] VITALS: BP 110/52
[2018-01-25 12:08] LABS: HEPATITIS A AB, IgM Negative (Negative); HEPATITIS B SURFACE AB Non Reactive (.); HEPATITIS B SURFACE AG Negative (Negative)
[2018-01-25] MEDS ORDERED: POTASSIUM CHLORIDE 20 MEQ POWDER PACKET GT ONE (15:15)
[2018-01-25 15:35] VITALS: BP 116/49
[2018-01-25] MEDS ORDERED: NEUTRA PHOS PACKET GT ONE (16:00)
[2018-01-25] MEDS: NEPRO 1000 ML GT PRN (16:54)
[2018-01-25] MEDS ORDERED: ACETYLCYSTEINE IV 10,000 MG in IV D5W 1000ML 1,000 ML IV ONE (17:30)
[2018-01-25 20:00] VITALS: BP 102/44
[2018-01-26 00:15] VITALS: BP 122/51
[2018-01-26] MEDS: MEROPENEM 500 MG in IV NORMAL SALINE 50 ML IV SCH ×2 (01:25→15:28)
[2018-01-26] MEDS: IPRATROPIUM BROMIDE 0.5 MG/2.5 ML NEBU NEB SCH ×7 (03:21→22:57)
[2018-01-26 04:34] VITALS: BP 111/52
[2018-01-26] MEDS: IV NORMAL SALINE 250 ML IV PRN (04:38)
[2018-01-26] MEDS: NORMAL SALINE FLUSH 10 ML DISP.SYRIN IV SCH ×3 (05:34→21:05)
[2018-01-26] MEDS: VANCOMYCIN FOR PO/GT/NG USE PO SCH ×4 (05:34→20:12)
[2018-01-26] MEDS: BLOOD SUGAR DIAGNOSTIC 1 EACH STRIP VI SCH ×3 (05:40→18:58)
[2018-01-26] MEDS: INSULIN REGULAR, HUMAN 300 UNIT/3 ML VIAL SQ PRN ×3 (05:44→19:01)
[2018-01-26] MEDS: LEVOTHYROXINE SODIUM 75 MCG TABLET GT SCH (06:07)
[2018-01-26 06:22] LABS: BASOPHILS # (AUTO) 0.1 K/uL (0.0-8.0); BASOPHILS % (AUTO) 0.4 % (0.0-2.0); EOSINOPHILS # (AUTO) 0.5 K/uL (0.0-0.7); EOSINOPHILS % (AUTO) 3.4 % (0.0-7.0); HEMATOCRIT 25.2 % (31.2-41.9); HEMOGLOBIN 8.2 g/dL (10.9-14.3); LYMPHOCYTES # (AUTO) 1.2 K/uL (20.0-40.0); LYMPHOCYTES % (AUTO) 8.2 % (20.5-51.5); MEAN CORPUSCULAR HEMOGLOBIN 30.4 uug (24.7-32.8); MEAN CORPUSCULAR HGB CONC 33 g/dL (32.3-35.6); MEAN CORPUSCULAR VOLUME 93.6 fL (75.5-95.3); MONOCYTES # (AUTO) 0.5 K/uL (2.0-10.0); MONOCYTES % (AUTO) 3.4 % (0.0-11.0); NEUTROPHILS % (AUTO) 84.6 % (38.5-71.5); PLATELET COUNT (AUTO) 200 K/uL (179-408); RED BLOOD CELL COUNT(AUTO) 2.69 MIL/uL (3.63-4.92); WHITE BLOOD COUNT (AUTO) 14.1 K/uL (3.8-11.8)
[2018-01-26 06:48] LABS: ALANINE AMINOTRANSFERASE 1129 U/L (14-59); ALKALINE PHOSPHATASE 2314 U/L (50-136); BILIRUBIN,TOTAL 1.2 mg/dL (0.2-1.0); CARBON DIOXIDE 25 mmol/L (21-32); CHLORIDE 107 mmol/L (98-107); CREATININE 2.2 mg/dL (0.6-1.3); MAGNESIUM 1.9 mg/dL (1.8-2.4); PHOSPHOROUS 3.3 mg/dL (2.5-4.9); POTASSIUM 3.4 mmol/L (3.5-5.1); TOTAL PROTEIN, SERUM 6.1 g/dL (6.4-8.2); UREA NITROGEN, BLOOD 39 mg/dL (7-18)
[2018-01-26 07:00] LABS: ASPARTATE AMINOTRANSFERASE 2206 U/L (15-37)
[2018-01-26 07:01] LABS: GLUCOSE 355 mg/dL (74-106)
[2018-01-26] MEDS: ALBUTEROL SULFATE 2.5 MG/3 ML NEBU IH PRN ×2 (07:29→19:38)
[2018-01-26 08:00] VITALS: BP 115/69
[2018-01-26 08:36] LABS: BAND % (MANUAL) 2 % (0-10); BASOPHILS % (MANUAL) 1 % (0-2); EOSINOPHILS % (MANUAL) 7 % (0-8); LYMPHOCYTES % (MANUAL) 8 % (20-40); METAMYELOCYTES % 2 % (0-1); MONOCYTES % (MANUAL) 3 % (2-10); MYELOCYTES % 2 % (0-0); NEUTROPHILS % (MANUAL) 75 % (42-75)
[2018-01-26] MEDS ORDERED: PANTOPRAZOLE SODIUM 40 MG VIAL IV SCH (09:00)
[2018-01-26] MEDS: FAMOTIDINE 20 MG TABLET GT SCH (09:29)
[2018-01-26] MEDS: CYANOCOBALAMIN 1,000 MCG TABLET GT SCH (09:29)
[2018-01-26] MEDS: FUROSEMIDE 40 MG/4 ML VIAL IV SCH (09:29)
[2018-01-26] MEDS: ZINC SULFATE 220 MG CAPSULE GT SCH (09:29)
[2018-01-26] MEDS: METOCLOPRAMIDE HCL 10 MG/2 ML VIAL IV SCH ×2 (09:29→20:12)
[2018-01-26] MEDS: ASCORBIC ACID 500 MG TABLET GT SCH ×2 (09:29→17:56)
[2018-01-26] MEDS: Z GUARD REMEDY PASTE 57 GM TUBE TOP SCH ×2 (09:33→21:03)
[2018-01-26] MEDS: METOPROLOL TARTRATE 25 MG TABLET GT SCH ×2 (09:33→20:17)
[2018-01-26 11:18] VITALS: BP 110/50
[2018-01-26] MEDS ORDERED: POTASSIUM CHLORIDE 20 MEQ POWDER PACKET GT ONE (15:06)
[2018-01-26] MEDS ORDERED: ACETYLCYSTEINE IV 10,000 MG in IV D5W 1000ML 1,000 ML IV ONE (17:30)
[2018-01-26 19:00] VITALS: BP 116/59
[2018-01-27] VITALS: BP 128/53
[2018-01-27] MEDS: INSULIN REGULAR, HUMAN 300 UNIT/3 ML VIAL SQ PRN ×5 (00:47→23:58)
[2018-01-27] MEDS: BLOOD SUGAR DIAGNOSTIC 1 EACH STRIP VI SCH ×5 (00:51→23:54)
[2018-01-27] MEDS: IPRATROPIUM BROMIDE 0.5 MG/2.5 ML NEBU NEB SCH ×6 (02:37→22:56)
[2018-01-27] MEDS: MEROPENEM 500 MG in IV NORMAL SALINE 50 ML IV SCH ×2 (03:27→14:10)
[2018-01-27 04:00] VITALS: BP 118/74
[2018-01-27] MEDS: VANCOMYCIN FOR PO/GT/NG USE PO SCH ×4 (05:28→23:47)
[2018-01-27] MEDS: NORMAL SALINE FLUSH 10 ML DISP.SYRIN IV SCH ×3 (05:28→21:02)
[2018-01-27] MEDS: LEVOTHYROXINE SODIUM 75 MCG TABLET GT SCH (06:07)
[2018-01-27 06:15] LABS: BASOPHILS # (AUTO) 0.1 K/uL (0.0-8.0); BASOPHILS % (AUTO) 0.5 % (0.0-2.0); EOSINOPHILS # (AUTO) 0.5 K/uL (0.0-0.7); EOSINOPHILS % (AUTO) 4.6 % (0.0-7.0); HEMATOCRIT 23.7 % (31.2-41.9); HEMOGLOBIN 7.7 g/dL (10.9-14.3); LYMPHOCYTES # (AUTO) 1.4 K/uL (20.0-40.0); LYMPHOCYTES % (AUTO) 12.5 % (20.5-51.5); MEAN CORPUSCULAR HEMOGLOBIN 29.6 uug (24.7-32.8); MEAN CORPUSCULAR HGB CONC 33 g/dL (32.3-35.6); MEAN CORPUSCULAR VOLUME 90.8 fL (75.5-95.3); MONOCYTES # (AUTO) 0.6 K/uL (2.0-10.0); MONOCYTES % (AUTO) 5.3 % (0.0-11.0); NEUTROPHILS # (AUTO) 8.5 K/uL (1.8-8.9); NEUTROPHILS % (AUTO) 77.1 % (38.5-71.5); PLATELET COUNT (AUTO) 197 K/uL (179-408); RED BLOOD CELL COUNT(AUTO) 2.61 MIL/uL (3.63-4.92); WHITE BLOOD COUNT (AUTO) 11.1 K/uL (3.8-11.8)
[2018-01-27 06:37] LABS: ALANINE AMINOTRANSFERASE 644 U/L (14-59); ALKALINE PHOSPHATASE 1800 U/L (50-136); ASPARTATE AMINOTRANSFERASE 563 U/L (15-37); BILIRUBIN,TOTAL 0.6 mg/dL (0.2-1.0); CARBON DIOXIDE 25 mmol/L (21-32); CHLORIDE 108 mmol/L (98-107); CREATININE 2.2 mg/dL (0.6-1.3); MAGNESIUM 1.8 mg/dL (1.8-2.4); PHOSPHOROUS 4.1 mg/dL (2.5-4.9); TOTAL PROTEIN, SERUM 5.8 g/dL (6.4-8.2); UREA NITROGEN, BLOOD 43 mg/dL (7-18)
[2018-01-27 06:54] LABS: GLUCOSE 357 mg/dL (74-106)
[2018-01-27 08:03] LABS: BAND % (MANUAL) 1 % (0-10); EOSINOPHILS % (MANUAL) 6 % (0-8); LYMPHOCYTES % (MANUAL) 11 % (20-40); METAMYELOCYTES % 2 % (0-1); MONOCYTES % (MANUAL) 4 % (2-10); MYELOCYTES % 2 % (0-0); NEUTROPHILS % (MANUAL) 74 % (42-75)
[2018-01-27] MEDS: Z GUARD REMEDY PASTE 57 GM TUBE TOP SCH ×2 (09:01→21:02)
[2018-01-27] MEDS: ASCORBIC ACID 500 MG TABLET GT SCH ×2 (09:01→17:25)
[2018-01-27] MEDS: ZINC SULFATE 220 MG CAPSULE GT SCH (09:01)
[2018-01-27] MEDS: CYANOCOBALAMIN 1,000 MCG TABLET GT SCH (09:01)
[2018-01-27] MEDS: FAMOTIDINE 20 MG TABLET GT SCH (09:01)
[2018-01-27] MEDS: FUROSEMIDE 40 MG/4 ML VIAL IV SCH (09:01)
[2018-01-27] MEDS: METOPROLOL TARTRATE 25 MG TABLET GT SCH ×2 (09:02→21:02)
[2018-01-27] MEDS: METOCLOPRAMIDE HCL 10 MG/2 ML VIAL IV SCH ×2 (09:04→21:01)
[2018-01-27] MEDS: NEPRO 1000 ML GT PRN (09:15)
[2018-01-27 11:37] VITALS: BP 120/56
[2018-01-27] MEDS ORDERED: INSULIN GLARGINE,HUM 300 UNITS/3 ML CARTRIDGE SQ SCH ×2 (12:10→21:00)
[2018-01-27] MEDS ORDERED: POTASSIUM CHLORIDE 10 MEQ TAB.PRT.SR PO ONE (12:15)
[2018-01-27] MEDS ORDERED: POTASSIUM CHLORIDE 20 MEQ POWDER PACKET GT ONE (12:15)
[2018-01-27] MEDS ORDERED: DEXTROSE 5% IV ONE ×2 (14:30→17:25)
[2018-01-27] MEDS ORDERED: ACETYLCYSTEINE IV ONE ×2 (14:30→17:25)
[2018-01-27] MEDS: IV NS 1000 ML 1,000 ML IV PRN (15:02)
[2018-01-27 15:47] VITALS: BP 107/45
[2018-01-27 19:00] VITALS: BP 125/54
[2018-01-27] MEDS: ALBUTEROL SULFATE 2.5 MG/3 ML NEBU IH PRN ×2 (19:19→22:56)
[2018-01-27] MEDS: Z GUARD REMEDY PASTE 57 GM TUBE TOP PRN (23:50)
[2018-01-28] VITALS: BP 134/52
[2018-01-28] MEDS: MEROPENEM 500 MG in IV NORMAL SALINE 50 ML IV SCH ×2 (01:39→13:37)
[2018-01-28] MEDS: IPRATROPIUM BROMIDE 0.5 MG/2.5 ML NEBU NEB SCH ×6 (02:30→22:49)
[2018-01-28] MEDS: ALBUTEROL SULFATE 2.5 MG/3 ML NEBU IH PRN ×3 (02:30→10:59)
[2018-01-28 04:00] VITALS: BP 123/66
[2018-01-28] MEDS: NORMAL SALINE FLUSH 10 ML DISP.SYRIN IV SCH ×3 (05:22→22:47)
[2018-01-28] MEDS: LEVOTHYROXINE SODIUM 75 MCG TABLET GT SCH (05:23)
[2018-01-28] MEDS: VANCOMYCIN FOR PO/GT/NG USE PO SCH ×4 (05:24→23:34)
[2018-01-28] MEDS: BLOOD SUGAR DIAGNOSTIC 1 EACH STRIP VI SCH ×4 (06:14→23:38)
[2018-01-28] MEDS: NEPRO 1000 ML GT PRN ×2 (06:23→12:03)
[2018-01-28 06:55] LABS: CARBON DIOXIDE 26 mmol/L (21-32); CHLORIDE 109 mmol/L (98-107); CREATININE 2.1 mg/dL (0.6-1.3); GLUCOSE 71 mg/dL (74-106); MAGNESIUM 1.7 mg/dL (1.8-2.4); PHOSPHOROUS 3.5 mg/dL (2.5-4.9); POTASSIUM 3.3 mmol/L (3.5-5.1); UREA NITROGEN, BLOOD 45 mg/dL (7-18)
[2018-01-28 07:25] LABS: BASOPHILS # (AUTO) 0.1 K/uL (0.0-8.0); BASOPHILS % (AUTO) 0.5 % (0.0-2.0); EOSINOPHILS # (AUTO) 0.8 K/uL (0.0-0.7); EOSINOPHILS % (AUTO) 5.2 % (0.0-7.0); HEMATOCRIT 24.3 % (31.2-41.9); HEMOGLOBIN 7.9 g/dL (10.9-14.3); LYMPHOCYTES # (AUTO) 1.6 K/uL (20.0-40.0); LYMPHOCYTES % (AUTO) 10.6 % (20.5-51.5); MEAN CORPUSCULAR HEMOGLOBIN 30.1 uug (24.7-32.8); MEAN CORPUSCULAR HGB CONC 33 g/dL (32.3-35.6); MEAN CORPUSCULAR VOLUME 92.7 fL (75.5-95.3); MONOCYTES % (AUTO) 6.8 % (0.0-11.0); NEUTROPHILS # (AUTO) 11.7 K/uL (1.8-8.9); NEUTROPHILS % (AUTO) 76.9 % (38.5-71.5); PLATELET COUNT (AUTO) 200 K/uL (179-408); RED BLOOD CELL COUNT(AUTO) 2.62 MIL/uL (3.63-4.92); WHITE BLOOD COUNT (AUTO) 15.3 K/uL (3.8-11.8)
[2018-01-28] MEDS: METOPROLOL TARTRATE 25 MG TABLET GT SCH ×2 (08:23→20:56)
[2018-01-28] MEDS: FUROSEMIDE 20 MG/2 ML VIAL IVP SCH (08:23)
[2018-01-28] MEDS: ZINC SULFATE 220 MG CAPSULE GT SCH (08:23)
[2018-01-28] MEDS: ASCORBIC ACID 500 MG TABLET GT SCH ×2 (08:23→17:16)
[2018-01-28] MEDS: FAMOTIDINE 20 MG TABLET GT SCH (08:23)
[2018-01-28] MEDS: CYANOCOBALAMIN 1,000 MCG TABLET GT SCH (08:23)
[2018-01-28] MEDS: Z GUARD REMEDY PASTE 57 GM TUBE TOP SCH ×2 (08:25→20:56)
[2018-01-28] MEDS: METOCLOPRAMIDE HCL 10 MG/2 ML VIAL IV SCH ×2 (08:26→20:31)
[2018-01-28] MEDS ORDERED: FUROSEMIDE 40 MG/4 ML VIAL IV SCH (09:00)
[2018-01-28 09:03] LABS: BILIRUBIN,DIRECT 0.3 mg/dL (0.0-0.2); BILIRUBIN,TOTAL 0.6 mg/dL (0.2-1.0); TOTAL PROTEIN, SERUM 6.2 g/dL (6.4-8.2)
[2018-01-28 09:50] LABS: EOSINOPHILS % (MANUAL) 2 % (0-8); LYMPHOCYTES % (MANUAL) 11 % (20-40); MONOCYTES % (MANUAL) 2 % (2-10); NEUTROPHILS % (MANUAL) 85 % (42-75)
[2018-01-28 11:07] VITALS: BP 114/59
[2018-01-28] MEDS ORDERED: POTASSIUM CHLORIDE 20 MEQ POWDER PACKET GT ONE (11:45)
[2018-01-28] MEDS ORDERED: MAGNESIUM SULFATE/D5W 100 ML IV SCH (11:45)
[2018-01-28] MEDS: INSULIN REGULAR, HUMAN 300 UNIT/3 ML VIAL SQ PRN ×2 (12:39→17:19)
[2018-01-28 15:20] VITALS: BP 118/74
[2018-01-28] MEDS: IV NS 1000 ML 1,000 ML IV PRN (17:33)
[2018-01-28 19:00] VITALS: BP 126/53
[2018-01-28] MEDS: INSULIN GLARGINE,HUM 300 UNITS/3 ML CARTRIDGE SQ SCH (20:51)
[2018-01-29] VITALS: BP 132/54
[2018-01-29] MEDS: INSULIN REGULAR, HUMAN 300 UNIT/3 ML VIAL SQ PRN ×4 (00:23→17:34)
[2018-01-29] MEDS: MEROPENEM 500 MG in IV NORMAL SALINE 50 ML IV SCH ×2 (01:59→14:18)
[2018-01-29] MEDS: IPRATROPIUM BROMIDE 0.5 MG/2.5 ML NEBU NEB SCH ×6 (03:00→22:59)
[2018-01-29 04:00] VITALS: BP 117/48
[2018-01-29] MEDS: NORMAL SALINE FLUSH 10 ML DISP.SYRIN IV SCH ×3 (05:09→20:51)
[2018-01-29] MEDS: VANCOMYCIN FOR PO/GT/NG USE PO SCH ×3 (05:10→17:32)
[2018-01-29] MEDS: LEVOTHYROXINE SODIUM 75 MCG TABLET GT SCH (05:12)
[2018-01-29 06:15] LABS: BASOPHILS # (AUTO) 0.1 K/uL (0.0-8.0); EOSINOPHILS # (AUTO) 1.1 K/uL (0.0-0.7); EOSINOPHILS % (AUTO) 9.6 % (0.0-7.0); MEAN CORPUSCULAR HEMOGLOBIN 29.5 uug (24.7-32.8)
[2018-01-29] MEDS: BLOOD SUGAR DIAGNOSTIC 1 EACH STRIP VI SCH ×3 (06:19→17:32)
[2018-01-29] MEDS: Z GUARD REMEDY PASTE 57 GM TUBE TOP PRN (06:20)
[2018-01-29 06:27] LABS: CARBON DIOXIDE 26 mmol/L (21-32); CHLORIDE 110 mmol/L (98-107); GLUCOSE 134 mg/dL (74-106); MAGNESIUM 2.1 mg/dL (1.8-2.4); PHOSPHOROUS 3.8 mg/dL (2.5-4.9); POTASSIUM 3.5 mmol/L (3.5-5.1); UREA NITROGEN, BLOOD 45 mg/dL (7-18)
[2018-01-29 06:29] LABS: BASOPHILS % (AUTO) 0.5 % (0.0-2.0); HEMATOCRIT 23.8 % (31.2-41.9); HEMOGLOBIN 7.6 g/dL (10.9-14.3); LYMPHOCYTES # (AUTO) 1.9 K/uL (20.0-40.0); LYMPHOCYTES % (AUTO) 16.5 % (20.5-51.5); MEAN CORPUSCULAR HGB CONC 32 g/dL (32.3-35.6); MEAN CORPUSCULAR VOLUME 91.9 fL (75.5-95.3); MONOCYTES % (AUTO) 9.2 % (0.0-11.0); NEUTROPHILS # (AUTO) 7.3 K/uL (1.8-8.9); NEUTROPHILS % (AUTO) 64.2 % (38.5-71.5); PLATELET COUNT (AUTO) 193 K/uL (179-408); RED BLOOD CELL COUNT(AUTO) 2.59 MIL/uL (3.63-4.92)
[2018-01-29 06:30] LABS: WHITE BLOOD COUNT (AUTO) 11.4 K/uL (3.8-11.8)
[2018-01-29 06:39] LABS: BILIRUBIN,DIRECT 0.3 mg/dL (0.0-0.2); BILIRUBIN,TOTAL 0.6 mg/dL (0.2-1.0); TOTAL PROTEIN, SERUM 6.3 g/dL (6.4-8.2)
[2018-01-29 08:30] VITALS: BP 151/47
[2018-01-29] MEDS: ASCORBIC ACID 500 MG TABLET GT SCH ×2 (08:41→17:31)
[2018-01-29] MEDS: CYANOCOBALAMIN 1,000 MCG TABLET GT SCH (08:41)
[2018-01-29] MEDS: FAMOTIDINE 20 MG TABLET GT SCH (08:41)
[2018-01-29] MEDS: FUROSEMIDE 20 MG/2 ML VIAL IVP SCH (08:41)
[2018-01-29] MEDS: ZINC SULFATE 220 MG CAPSULE GT SCH (08:41)
[2018-01-29] MEDS: METOPROLOL TARTRATE 25 MG TABLET GT SCH ×2 (08:42→20:51)
[2018-01-29] MEDS: Z GUARD REMEDY PASTE 57 GM TUBE TOP SCH ×2 (08:43→20:50)
[2018-01-29] MEDS: METOCLOPRAMIDE HCL 10 MG/2 ML VIAL IV SCH ×2 (08:49→20:51)
[2018-01-29 09:45] LABS: BASOPHILS % (MANUAL) 2 % (0-2); EOSINOPHILS % (MANUAL) 11 % (0-8); LYMPHOCYTES % (MANUAL) 16 % (20-40); MONOCYTES % (MANUAL) 6 % (2-10); MYELOCYTES % 1 % (0-0); NEUTROPHILS % (MANUAL) 64 % (42-75)
[2018-01-29 12:01] VITALS: BP 156/76
[2018-01-29] MEDS ORDERED: LIDOCAINE HCL 1% 20 ML VIAL IJ PRN (14:15)
[2018-01-29 16:34] VITALS: BP 131/51
[2018-01-29] MEDS: IV NS 1000 ML 1,000 ML IV PRN (18:14)
[2018-01-29] MEDS: NEPRO 1000 ML GT PRN (18:15)
[2018-01-29] MEDS: ALBUTEROL SULFATE 2.5 MG/3 ML NEBU IH PRN ×2 (19:12→22:59)
[2018-01-29 20:00] VITALS: BP 132/56
[2018-01-29] MEDS: INSULIN GLARGINE,HUM 300 UNITS/3 ML CARTRIDGE SQ SCH (21:12)
[2018-01-30] VITALS (9 sets, daily range): BP systolic 113–146; BP diastolic 44–77
[2018-01-30] MEDS: VANCOMYCIN FOR PO/GT/NG USE PO SCH ×4 (01:57→17:26)
[2018-01-30] MEDS: MEROPENEM 500 MG in IV NORMAL SALINE 50 ML IV SCH ×2 (01:57→13:36)
[2018-01-30] MEDS: IPRATROPIUM BROMIDE 0.5 MG/2.5 ML NEBU NEB SCH ×6 (02:40→23:14)
[2018-01-30] MEDS: NORMAL SALINE FLUSH 10 ML DISP.SYRIN IV SCH ×3 (04:48→21:07)
[2018-01-30] MEDS: Z GUARD REMEDY PASTE 57 GM TUBE TOP PRN (04:48)
[2018-01-30] MEDS: LEVOTHYROXINE SODIUM 75 MCG TABLET GT SCH (05:37)
[2018-01-30 06:07] LABS: BASOPHILS # (AUTO) 0.1 K/uL (0.0-8.0); BASOPHILS % (AUTO) 0.7 % (0.0-2.0); EOSINOPHILS # (AUTO) 1.2 K/uL (0.0-0.7); EOSINOPHILS % (AUTO) 12.6 % (0.0-7.0); HEMATOCRIT 22.3 % (31.2-41.9); LYMPHOCYTES # (AUTO) 1.6 K/uL (20.0-40.0); LYMPHOCYTES % (AUTO) 16.8 % (20.5-51.5); MEAN CORPUSCULAR HEMOGLOBIN 30.7 uug (24.7-32.8); MEAN CORPUSCULAR HGB CONC 33 g/dL (32.3-35.6); MEAN CORPUSCULAR VOLUME 94.3 fL (75.5-95.3); NEUTROPHILS # (AUTO) 5.7 K/uL (1.8-8.9); NEUTROPHILS % (AUTO) 59.9 % (38.5-71.5); PLATELET COUNT (AUTO) 174 K/uL (179-408); WHITE BLOOD COUNT (AUTO) 9.5 K/uL (3.8-11.8)
[2018-01-30 06:08] LABS: HEMOGLOBIN 7.3 g/dL (10.9-14.3); RED BLOOD CELL COUNT(AUTO) 2.36 MIL/uL (3.63-4.92)
[2018-01-30] MEDS: BLOOD SUGAR DIAGNOSTIC 1 EACH STRIP VI SCH ×4 (06:13→17:26)
[2018-01-30 06:37] LABS: ALANINE AMINOTRANSFERASE 212 U/L (14-59); ALKALINE PHOSPHATASE 1062 U/L (50-136); ASPARTATE AMINOTRANSFERASE 64 U/L (15-37); BILIRUBIN,TOTAL 0.5 mg/dL (0.2-1.0); CARBON DIOXIDE 28 mmol/L (21-32); CHLORIDE 113 mmol/L (98-107); CREATININE 1.9 mg/dL (0.6-1.3); GLUCOSE 98 mg/dL (74-106); MAGNESIUM 2.2 mg/dL (1.8-2.4); PHOSPHOROUS 4.6 mg/dL (2.5-4.9); POTASSIUM 3.4 mmol/L (3.5-5.1); TOTAL PROTEIN, SERUM 6.1 g/dL (6.4-8.2); UREA NITROGEN, BLOOD 48 mg/dL (7-18)
[2018-01-30] MEDS: ALBUTEROL SULFATE 2.5 MG/3 ML NEBU IH PRN ×3 (07:13→23:14)
[2018-01-30] MEDS: METOCLOPRAMIDE HCL 10 MG/2 ML VIAL IV SCH ×2 (08:17→21:06)
[2018-01-30] MEDS ORDERED: LIDOCAINE HCL 1% 20 ML VIAL ONE (08:19)
[2018-01-30] MEDS ORDERED: IV 1/2NS 1000 ML 500 ML IV PRN (09:00)
[2018-01-30] MEDS ORDERED: MIDAZOLAM HCL 2 MG/2 ML VIAL IV PRN (09:30)
[2018-01-30] MEDS ORDERED: NALOXONE HCL 0.4 MG/ML AMPUL IV PRN (09:30)
[2018-01-30] MEDS ORDERED: FENTANYL CITRATE 100 MCG/2 ML AMPUL IV PRN (09:30)
[2018-01-30] MEDS: ASCORBIC ACID 500 MG TABLET GT SCH ×2 (11:39→17:26)
[2018-01-30] MEDS: ZINC SULFATE 220 MG CAPSULE GT SCH (11:39)
[2018-01-30] MEDS: CYANOCOBALAMIN 1,000 MCG TABLET GT SCH (11:39)
[2018-01-30] MEDS: METOPROLOL TARTRATE 25 MG TABLET GT SCH ×2 (11:40→21:06)
[2018-01-30] MEDS: Z GUARD REMEDY PASTE 57 GM TUBE TOP SCH ×2 (11:40→21:06)
[2018-01-30] MEDS: FUROSEMIDE 20 MG TABLET PO SCH (11:40)
[2018-01-30] MEDS: FAMOTIDINE 20 MG TABLET GT SCH (11:40)
[2018-01-30] MEDS: NEPRO 1000 ML GT PRN (11:43)
[2018-01-30] MEDS ORDERED: POTASSIUM CHLORIDE 20 MEQ POWDER PACKET GT ONE (12:15)
[2018-01-30] MEDS ORDERED: IV 1/2NS 1000 ML 1,000 ML IV ONE (14:30)
[2018-01-30] MEDS: INSULIN GLARGINE,HUM 300 UNITS/3 ML CARTRIDGE SQ SCH (21:08)
[2018-01-31] MEDS: Z GUARD REMEDY PASTE 57 GM TUBE TOP PRN ×2 (00:08→05:35)
[2018-01-31] MEDS: BLOOD SUGAR DIAGNOSTIC 1 EACH STRIP VI SCH ×5 (00:09→23:48)
[2018-01-31] MEDS: VANCOMYCIN FOR PO/GT/NG USE PO SCH ×5 (00:09→23:48)
[2018-01-31] MEDS: INSULIN REGULAR, HUMAN 300 UNIT/3 ML VIAL SQ PRN ×4 (00:13→23:53)
[2018-01-31] MEDS: ALBUTEROL SULFATE 2.5 MG/3 ML NEBU IH PRN ×3 (03:38→23:09)
[2018-01-31] MEDS: Z GUARD REMEDY PASTE 57 GM TUBE TOP SCH ×3 (03:38→21:32)
[2018-01-31] MEDS: IPRATROPIUM BROMIDE 0.5 MG/2.5 ML NEBU NEB SCH ×6 (03:38→23:09)
[2018-01-31] MEDS: NORMAL SALINE FLUSH 10 ML DISP.SYRIN IV PRN (03:41)
[2018-01-31 04:00] VITALS: BP 115/57
[2018-01-31] MEDS: LEVOTHYROXINE SODIUM 75 MCG TABLET GT SCH (05:38)
[2018-01-31] MEDS: NORMAL SALINE FLUSH 10 ML DISP.SYRIN IV SCH ×3 (05:38→21:39)
[2018-01-31 06:36] LABS: BASOPHILS # (AUTO) 0.1 K/uL (0.0-8.0); BASOPHILS % (AUTO) 0.5 % (0.0-2.0); EOSINOPHILS # (AUTO) 1.3 K/uL (0.0-0.7); EOSINOPHILS % (AUTO) 11.1 % (0.0-7.0); HEMATOCRIT 24.8 % (31.2-41.9); LYMPHOCYTES # (AUTO) 1.7 K/uL (20.0-40.0); LYMPHOCYTES % (AUTO) 14.1 % (20.5-51.5); MEAN CORPUSCULAR HEMOGLOBIN 29.9 uug (24.7-32.8); MEAN CORPUSCULAR HGB CONC 33 g/dL (32.3-35.6); MEAN CORPUSCULAR VOLUME 92.1 fL (75.5-95.3); MONOCYTES # (AUTO) 1.2 K/uL (2.0-10.0); MONOCYTES % (AUTO) 10.5 % (0.0-11.0); NEUTROPHILS # (AUTO) 7.6 K/uL (1.8-8.9); NEUTROPHILS % (AUTO) 63.8 % (38.5-71.5); PLATELET COUNT (AUTO) 189 K/uL (179-408); RED BLOOD CELL COUNT(AUTO) 2.69 MIL/uL (3.63-4.92); WHITE BLOOD COUNT (AUTO) 11.9 K/uL (3.8-11.8)
[2018-01-31 06:57] LABS: ALANINE AMINOTRANSFERASE 154 U/L (14-59); ALKALINE PHOSPHATASE 940 U/L (50-136); ASPARTATE AMINOTRANSFERASE 50 U/L (15-37); BILIRUBIN,TOTAL 0.6 mg/dL (0.2-1.0); CARBON DIOXIDE 26 mmol/L (21-32); CHLORIDE 113 mmol/L (98-107); CREATININE 1.8 mg/dL (0.6-1.3); GLUCOSE 129 mg/dL (74-106); MAGNESIUM 2.1 mg/dL (1.8-2.4); PHOSPHOROUS 3.5 mg/dL (2.5-4.9); POTASSIUM 3.8 mmol/L (3.5-5.1); TOTAL PROTEIN, SERUM 6.4 g/dL (6.4-8.2); UREA NITROGEN, BLOOD 47 mg/dL (7-18)
[2018-01-31 08:03] LABS: EOSINOPHILS % (MANUAL) 10 % (0-8); LYMPHOCYTES % (MANUAL) 15 % (20-40); MONOCYTES % (MANUAL) 11 % (2-10); NEUTROPHILS % (MANUAL) 64 % (42-75)
[2018-01-31] MEDS: METOPROLOL TARTRATE 25 MG TABLET GT SCH ×2 (08:08→21:31)
[2018-01-31] MEDS: CYANOCOBALAMIN 1,000 MCG TABLET GT SCH (08:08)
[2018-01-31] MEDS: ASCORBIC ACID 500 MG TABLET GT SCH ×2 (08:08→17:16)
[2018-01-31] MEDS: FUROSEMIDE 20 MG TABLET PO SCH (08:08)
[2018-01-31] MEDS: FAMOTIDINE 20 MG TABLET GT SCH (08:08)
[2018-01-31] MEDS: METOCLOPRAMIDE HCL 10 MG/2 ML VIAL IV SCH ×2 (08:08→21:31)
[2018-01-31] MEDS: ZINC SULFATE 220 MG CAPSULE GT SCH (08:08)
[2018-01-31] MEDS: NEPRO 1000 ML GT PRN (08:10)
[2018-01-31 11:38] VITALS: BP 127/47
[2018-01-31 15:29] VITALS: BP 135/45
[2018-01-31 20:00] VITALS: BP 116/54
[2018-01-31] MEDS: INSULIN GLARGINE,HUM 300 UNITS/3 ML CARTRIDGE SQ SCH (21:37)
[2018-02-01] MEDS: IPRATROPIUM BROMIDE 0.5 MG/2.5 ML NEBU NEB SCH ×4 (02:30→15:00)
[2018-02-01 04:32] VITALS: BP 109/57
[2018-02-01] MEDS: NORMAL SALINE FLUSH 10 ML DISP.SYRIN IV SCH ×2 (05:51→14:27)
[2018-02-01] MEDS: VANCOMYCIN FOR PO/GT/NG USE PO SCH ×3 (05:55→18:00)
[2018-02-01] MEDS: BLOOD SUGAR DIAGNOSTIC 1 EACH STRIP VI SCH ×3 (06:02→18:00)
[2018-02-01] MEDS: LEVOTHYROXINE SODIUM 75 MCG TABLET GT SCH (06:03)
[2018-02-01] MEDS: INSULIN REGULAR, HUMAN 300 UNIT/3 ML VIAL SQ PRN ×2 (06:06→11:52)
[2018-02-01] MEDS: ALBUTEROL SULFATE 2.5 MG/3 ML NEBU IH PRN ×2 (07:30→12:02)
[2018-02-01] MEDS: NEPRO 1000 ML GT PRN (08:13)
[2018-02-01] MEDS: CYANOCOBALAMIN 1,000 MCG TABLET GT SCH (08:24)
[2018-02-01] MEDS: ASCORBIC ACID 500 MG TABLET GT SCH ×2 (08:24→17:00)
[2018-02-01] MEDS: ZINC SULFATE 220 MG CAPSULE GT SCH (08:24)
[2018-02-01] MEDS: FUROSEMIDE 20 MG TABLET PO SCH (08:24)
[2018-02-01] MEDS: FAMOTIDINE 20 MG TABLET GT SCH (08:24)
[2018-02-01] MEDS: METOPROLOL TARTRATE 25 MG TABLET GT SCH (08:26)
[2018-02-01] MEDS: METOCLOPRAMIDE HCL 10 MG/2 ML VIAL IV SCH (08:27)
[2018-02-01] MEDS: Z GUARD REMEDY PASTE 57 GM TUBE TOP SCH (08:28)
[2018-02-01 11:06] VITALS: BP 122/56
[2018-02-01 15:06] VITALS: BP 134/63
== END 2018-02-01 18:10 | DRG 853 ==
LOC: ER 14:24 → CCU 19:18 → MED 01-06 18:17 → DOU 01-06 18:30 → TELE-TD 01-06 18:57 → TELE 01-07 16:15 → CCU 01-07 18:37 → TELE 01-14 16:12 → MED 01-15 18:26 → CCU 01-20 13:08 → TELE-TD 01-21 17:15 → TELE 01-22 21:58 → TELE-TD 01-23 15:04 → MED 01-24 18:43 → TELE 01-24 20:05 → MED 01-30 12:50
PROVIDERS: ADMIT Internal Medicine; ATTEND Internal Medicine
PROC: 5A1D70Z Performance of Urinary Filtration, Intermittent, Less than 6 Hours Per Day (ICD-10-PCS; principal; 2017-12-26)
PROC: 06HY33Z Insertion of Infusion Device into Lower Vein, Percutaneous Approach (ICD-10-PCS; 2017-12-26)
PROC: 0T9030Z Drainage of Right Kidney with Drainage Device, Percutaneous Approach (ICD-10-PCS; 2017-12-29)
PROC: 30233N1 Transfusion of Nonautologous Red Blood Cells into Peripheral Vein, Percutaneous Approach (ICD-10-PCS; 2017-12-30)
PROC: 0DB68ZX Excision of Stomach, Via Natural or Artificial Opening Endoscopic, Diagnostic (ICD-10-PCS; 2017-12-31)
PROC: 0QB10ZZ Excision of Sacrum, Open Approach (ICD-10-PCS; 2018-01-03)
PROC: 05H533Z Insertion of Infusion Device into Right Subclavian Vein, Percutaneous Approach (ICD-10-PCS; 2018-01-07)
PROC: 0TF68ZZ Fragmentation in Right Ureter, Via Natural or Artificial Opening Endoscopic (ICD-10-PCS; 2018-01-09)
PROC: 0T768DZ Dilation of Right Ureter with Intraluminal Device, Via Natural or Artificial Opening Endoscopic (ICD-10-PCS; 2018-01-09)
PROC: 0TP5X0Z Removal of Drainage Device from Kidney, External Approach (ICD-10-PCS; 2018-01-09)
PROC: 05HQ33Z Insertion of Infusion Device into Left External Jugular Vein, Percutaneous Approach (ICD-10-PCS; 2018-01-09)
PROC: 02HV33Z Insertion of Infusion Device into Superior Vena Cava, Percutaneous Approach (ICD-10-PCS; 2018-01-09)
PROC: 0TP98DZ Removal of Intraluminal Device from Ureter, Via Natural or Artificial Opening Endoscopic (ICD-10-PCS; 2018-01-23)
PROC: 0F943ZZ Drainage of Gallbladder, Percutaneous Approach (ICD-10-PCS; 2018-01-30)
DX: A41.59 Other Gram-negative sepsis (principal); L89.154 Pressure ulcer of sacral region, stage 4; J69.0 Pneumonitis due to inhalation of food and vomit; R65.21 Severe sepsis with septic shock; J96.01 Acute respiratory failure with hypoxia; R53.2 Functional quadriplegia; E43 Unspecified severe protein-calorie malnutrition; G92 Toxic encephalopathy; I50.31 Acute diastolic (congestive) heart failure; I69.354 Hemiplegia and hemiparesis following cerebral infarction affecting left non-dominant side; N13.2 Hydronephrosis with renal and ureteral calculous obstruction; E87.0 Hyperosmolality and hypernatremia; N18.4 Chronic kidney disease, stage 4 (severe); B37.49 Other urogenital candidiasis; M46.28 Osteomyelitis of vertebra, sacral and sacrococcygeal region; K80.00 Calculus of gallbladder with acute cholecystitis without obstruction; I13.0 Hypertensive heart and chronic kidney disease with heart failure and stage 1 through stage 4 chronic kidney disease, or unspecified chronic kidney disease; I48.92 Unspecified atrial flutter; J98.11 Atelectasis; D68.59 Other primary thrombophilia; B37.7 Candidal sepsis; E87.5 Hyperkalemia; E03.9 Hypothyroidism, unspecified; Z68.22 Body mass index [BMI] 22.0-22.9, adult; Z93.1 Gastrostomy status; K21.9 Gastro-esophageal reflux disease without esophagitis; I48.0 Paroxysmal atrial fibrillation; E78.5 Hyperlipidemia, unspecified; D63.8 Anemia in other chronic diseases classified elsewhere; M81.0 Age-related osteoporosis without current pathological fracture; Z88.1 Allergy status to other antibiotic agents; Z88.0 Allergy status to penicillin; D32.0 Benign neoplasm of cerebral meninges; Z22.322 Carrier or suspected carrier of Methicillin resistant Staphylococcus aureus; E11.22 Type 2 diabetes mellitus with diabetic chronic kidney disease; E11.69 Type 2 diabetes mellitus with other specified complication; E11.65 Type 2 diabetes mellitus with hyperglycemia; E86.0 Dehydration; K56.41 Fecal impaction; E61.1 Iron deficiency; F03.90 Unspecified dementia, unspecified severity, without behavioral disturbance, psychotic disturbance, mood disturbance, and anxiety; I25.10 Atherosclerotic heart disease of native coronary artery without angina pectoris; E11.40 Type 2 diabetes mellitus with diabetic neuropathy, unspecified; K29.70 Gastritis, unspecified, without bleeding; R13.10 Dysphagia, unspecified; Z79.899 Other long term (current) drug therapy; Z16.12 Extended spectrum beta lactamase (ESBL) resistance; M89.9 Disorder of bone, unspecified; I70.0 Atherosclerosis of aorta; B96.1 Klebsiella pneumoniae [K. pneumoniae] as the cause of diseases classified elsewhere; Z86.19 Personal history of other infectious and parasitic diseases; K71.2 Toxic liver disease with acute hepatitis; T46.2X5A Adverse effect of other antidysrhythmic drugs, initial encounter; Y92.230 Patient room in hospital as the place of occurrence of the external cause; R32 Unspecified urinary incontinence; Z79.4 Long term (current) use of insulin
CPT/HCPCS: 36415; 36569; 36600; 70030-TC; 71045; 74018; 74150; 75989; 76000; 76705; 76770; 78445; 83550; 83605; 83735; 84100; 84132; 84156; 84300; 84443; 85018; 85025; 85610; 85730; 86704; 86705; 86706; 86709; 86803; 86850; 86900; 86901; 86920; 87040; 87070; 87077; 87086; 87340; 88342; 90937; 93005; 93307; 93880; 94640; 94664; A4217; A4663; A9537; C1758; C1876; C9113; J0132; J0282; J0610; J1644; J1815; J1940; J1956; J2185; J2248; J2250; J2270; J2405; J2765; J2997; J3010; J3370; J3475; J3480; J3490; J3590; J7030; J7040; J7042; J7050; J7060; J7070; P9016-BL; P9021; Q9966; Q9967